=== PATIENT | male | born 1960 | race Caucasian/White ===

== ENCOUNTER → 2017-04-16 08:14 | Outpatient (CLI) | payer OTHER, SELFPAY ==
[2017-04-16 10:34] LABS: Anion Gap 9 (5-15); BUN 19 mg/dL (7-18); BUN/Creat Ratio 21.4 RATIO (10-20); Calcium,Total 8.2 mg/dL (8.5-10.1); Chloride 103 mmol/L (98-107); Cholesterol 121 mg/dL (200); Creatinine, Serum 0.89 mg/dL (0.70-1.30); EST Glomerular Filtration Rate 94 mL/min (>60); Est Glom Filt Rate - Afr Amer 114 mL/min (>60); Glucose 87 mg/dL (74-106); High Density Lipoprotein 29 mg/dL; Potassium 3.7 mmol/L (3.5-5.1); Sodium Level 140 mmol/L (136-145); Triglycerides 52 mg/dL; Very Low Density Lipoprotein 10 mg/dL (5-40)
== END ==
PROVIDERS: Family Provider Family Medicine; PCP Family Medicine; Visit Provider Family Medicine
DX: E78.00 Pure hypercholesterolemia, unspecified (principal); R00.2 Palpitations
CPT/HCPCS: 36415; 80048; 80061

== ENCOUNTER → 2018-05-17 10:33 | Outpatient (CLI) | payer OTHER, SELFPAY ==
[2015-04-28 08:06] VITALS: BMI 32.1
[2018-05-17 13:19] LABS: Alanine Aminotransfer ALT/SGPT 25 U/L (16-61); Anion Gap 9 (5-15); BUN 12 mg/dL (7-18); BUN/Creat Ratio 13.3 RATIO (10-20); Calcium,Total 8.4 mg/dL (8.5-10.1); Chloride 106 mmol/L (98-107); Cholesterol 179 mg/dL (200); EST Glomerular Filtration Rate 93 mL/min (>60); Est Glom Filt Rate - Afr Amer 112 mL/min (>60); Glucose 91 mg/dL (74-106); High Density Lipoprotein 34 mg/dL; PSA,Total - Annual Screen 0.51 ng/mL (0.00-4.00); Potassium 4.1 mmol/L (3.5-5.1); Sodium Level 142 mmol/L (136-145); Triglycerides 88 mg/dL; Very Low Density Lipoprotein 18 mg/dL (5-40)
== END ==
PROVIDERS: Family Provider Family Medicine; PCP Family Medicine; Referring Provider Family Medicine; Visit Provider Family Medicine
DX: Z12.5 Encounter for screening for malignant neoplasm of prostate (principal); L40.9 Psoriasis, unspecified; E78.00 Pure hypercholesterolemia, unspecified
CPT/HCPCS: 36415; 80048; 80061; 84153; 84460; G0103

== ENCOUNTER → 2019-05-20 09:22 | Outpatient (CLI) | payer OTHER, SELFPAY ==
[2015-04-28 08:06] VITALS: BMI 32.1
[2019-05-20 12:24] LABS: ALB/GLOB Ratio 1.1 RATIO (0.9-2.4); AST(SGOT) 25 U/L (15-37); Alanine Aminotransfer ALT/SGPT 32 U/L (16-61); Albumin, Serum 3.8 g/dL (3.2-5.0); Alkaline Phosphatase 74 U/L (45-117); Anion Gap 8 (5-15); BUN 16 mg/dL (7-18); Calcium,Total 8.5 mg/dL (8.5-10.1); Chloride 104 mmol/L (98-107); Cholesterol 188 mg/dL (200); EST Glomerular Filtration Rate 82 mL/min (>60); Est Glom Filt Rate - Afr Amer 99 mL/min (>60); Globulin 3.5 g/dL (2.2-4.2); Glucose 94 mg/dL (74-106); High Density Lipoprotein 34 mg/dL; PSA,Total - Annual Screen 0.39 ng/mL (0.00-4.00); Potassium 4.1 mmol/L (3.5-5.1); Protein, Total 7.3 g/dL (6.4-8.2); Sodium Level 140 mmol/L (136-145); Triglycerides 76 mg/dL; Very Low Density Lipoprotein 15 mg/dL (5-40)
== END ==
PROVIDERS: PCP Family Medicine; Referring Provider Family Medicine; Visit Provider Family Medicine
DX: E78.00 Pure hypercholesterolemia, unspecified (principal); Z12.5 Encounter for screening for malignant neoplasm of prostate
CPT/HCPCS: 36415; 80053; 80061; 84153; G0103

== ENCOUNTER 2019-07-26 17:49 | Emergency (ER) | payer OTHER, SELFPAY ==
[2019-07-26 17:50] VITALS: BP 169/96; PULSE 80; RESP 16; TEMP 36.2; O2SAT 97; BMI 29.9
--- NOTE | 2019-07-26 18:11 | ED.VIS.GEN ---
History of Present Illness Chief Complaint: Laceration Informant: Patient Onset: Today Narrative: Patient presents with laceration to the right balderas. He was building a deck when a board came back up and hit him in the right leg. He believes tetanus is up-to-date. He was able to ambulate without difficulty. - Past Medical History (1) High cholesterol Status: Chronic Past Medical History - Allergies and Home Meds Allergies/Adverse Reactions: Allergies No Known Allergies Allergy (Verified 07/26/19 17:51) Primary Care Physician: Jonathan Barroso MD [Primary Care Provider] - Prior records reviewed: Yes Smoking Status: Never smoker Review of Systems General: Denies: Chills, Fever Eyes: Denies: Visual changes - bilaterally ENT: Denies: Bilateral ear pain Cardiovascular: Denies: Chest pain Respiratory: Denies: Dyspnea, Cough Gastrointestinal: Denies: Abdominal pain Musculoskeletal: Reports: Extremity Pain Skin: Reports: Wounds Neurological: Denies: Headache Hematologic: Denies: Easy bruising, Easy bleeding Allergy: Denies: Uticaria Physical Exam Vital Signs/Narrative: Vital Signs Temp Pulse Resp BP Pulse Ox 07/26/19 17:50 97.2 F L 80 16 169/96 H 97 Inital Vital Signs reviewed: Yes General: Well nourished, Well developed ENT: Moist mucous membranes Neck: Supple Cardiovascular: Regular rate, Regular rhythm Respiratory: No distress Skin: - - V-shaped skin avulsion to the right lower balderas measuring 6 and 9 cm on each arm of the V. Bleeding is well controlled. Strong distal pulses noted. Neurological: Alert, Oriented x3, Normal Strength, Normal Sensation Psychological: Normal affect Diagnostic/Tx/Re-eval - Medical Decision Making Wound is anesthetized with 8 cc of 1% lidocaine. Wound is irrigated. Total of 21 sutures are placed using a combination of 4-0 and 5-0 nylon. Dressing is placed and wound care is discussed. Patient is advised to have sutures removed in 10 days. Procedures - Lacerations No standard instances Length: 5.91 in Depth: Sub Q Shape: Flap Laceration repair: Lidocaine, Local Number of Sutures/[place]: 21 Suture Information: - - 4-0 and 5-0 nylon, simple interrupted sutures ED Disposition - Plan for ED Patient: Disposition: Home or Assisted Living Diagnosis: Leg laceration Instructions: ED Laceration Ext Sutr Stap Tape Referrals: Jonathan Barroso MD [Primary Care Provider] - 10 Day for suture removal
[2019-07-26 18:56] VITALS: BP 145/71; PULSE 78; RESP 17; O2SAT 98
== END 2019-07-26 18:56 | disposition home or self-care (01) ==
LOC: ED 18:53
PROVIDERS: Emergency Provider Emergency Medicine; PCP Family Medicine
DX: S81.811A Laceration without foreign body, right lower leg, initial encounter (principal); W22.8XXA Striking against or struck by other objects, initial encounter; Y93.H3 Activity, building and construction; Y92.9 Unspecified place or not applicable; E78.00 Pure hypercholesterolemia, unspecified
CPT/HCPCS: 12005; 99284

== ENCOUNTER 2019-08-21 11:48 | Outpatient (RCR) | payer OTHER, SELFPAY ==
[2019-08-21 11:55] VITALS: BP 159/92; PULSE 61; RESP 16; TEMP 36.8
--- NOTE | 2019-08-21 19:49 | HP.PCM_ITS ---
(1) Wound of right lower extremity Status: Chronic Current Visit: Yes Code(s): S81.801A - Unspecified open wound, right lower leg, initial encounter Comment: Traumatic. Penetrating with fat layer exposed. History of Present Illness Date of Service: 08/21/19 Chief Complaint: Non Healing right leg wound. History of Wound: Mr. Miranda is a 59-year-old who presents to the wound center due to nonhealing right leg wound. Had a piece of board fall on his right balderas with subsequent injury. Was seen at the emergency room and had stitches applied however wound reopened after after stitches were taken off by his primary care physician. Has been on antibiotics and took his last dose yesterday. Denies any other feeling of unwell. No chills, fever, nausea, vomiting or change in bowel habit. Past Medical History Past Medical History: Chronic Problems High cholesterol (Chronic) Wound of right lower extremity (Chronic) Traumatic. Penetrating with fat layer exposed. Allergies/Adverse Reactions: Allergies No Known Allergies Allergy (Verified 08/21/19 12:05) Home Medications: Ambulatory Orders Medication Instructions Recorded Atorvastatin Calcium [Lipitor] 10 mg PO QHS 04/28/15 Betamethasone/Propylene Glyc 15 gm TP BID 04/28/15 [Diprolene AF 0.05% Cream] Cholecalciferol (VIT D3) [Vitamin 1,000 unit PO DAILY 04/28/15 D] Smoking Status: Never smoker Review of Systems Constitutional: Denies: Anorexia, Chills, Fever Eyes: Denies: Blurred vision, Pain, Redness HEENT: Denies: Difficulty Hearing, Difficulty Swallowing, Head Aches Cardiovascular: Denies: Chest Pain, Claudication, Chest Pressure Respiratory: Denies: Cough, Hemoptysis, Shortness of breath upon exertion Gastrointestinal: Denies: Abdominal Pain, Hematemesis, Vomiting Genitourinary: Denies: Hematuria Skin: Denies: Jaundice - Physical Exam Vital Signs Temp Pulse Resp BP 98.2 F 61 16 159/92 H 08/21/19 11:55 08/21/19 11:55 08/21/19 11:55 08/21/19 11:55 General: Alert, Oriented x3, Cooperative, No apparent distress HEENT: Atraumatic, Normocephalic Oral: Moist Mucosa Neck: Supple Lungs: Normal air movement Cardiovascular: Regular rate, Regular Rhythm, Normal S1, Normal S2 Abdomen: Soft, Non Tender Extremities: No cyanosis, Edema Skin: Ulcer/ Wound Wound Measurements and Assessment - Nurse 1 - General Ulcer Measurement Start: 08/21/19 11:55 Freq: Status: Active Protocol: Activity Type Activity Date Activity User E-Sign Co-Sign Detail Recorded Client Recorded Date Recorded By Document 08/21/19 11:55 [facility] [id number] 08/21/19 12:03 [facility] 08/21/19 11:55 Wound Center Nurse 1 [Ulcer Assessment] #1- R BALDERAS (TRAUMA) -Combined with other wound No -Current Size (cm) - Length 6.8 -Current Size (cm) - Width 2.7 -Current Size (cm) - Depth 0.2 -Total Square Cm 18.36 -Date of Last Picture (Recall this 08/21/19 field) -Photo Taken Yes -Epithelialization None Present -Tunneling No -Undermining/Tunneling No -Circular Undermining No -Exudate Amt Medium -Exudate Type Serosanguineous -Wound Margin Distinct, Outline Attached -Granulation Amt Small (1-33%) -Granulation Quality Red -Slough/Fibrin Yes -Necrosis Amt Large (67-100%) -Necrotic Tissue Type Adherent Slough -Texture (Daisy-wound Skin Appearance) Assessed, Scarring -Moisture (Daisy-wound Skin Appearance Assessed ) -Color (Daisy-wound Skin Appearance) Assessed, Erythema -Temperature (Daisy-wound Skin No Abnormality Appearance) (Pt Warm) -Tenderness on Palpation (Daisy-wound No Skin Appearance) -Ulcer Cleansing Rinsed/ Irrigated with Saline -Foul Odor after Cleansing No -Anesthetic Used 4% Lidocaine Solution - Nurse 2 - General Ulcer CM Notes Start: 08/21/19 11:55 Freq: Status: Active Protocol: Activity Type Activity Date Activity User E-Sign Co-Sign Detail Recorded Client Recorded Date Recorded By Document 08/21/19 12:26 DV [id number] 08/21/19 12:28 DV 08/21/19 12:26 Wound Center Nurse 2 [Procedure/Treatment] -Time 12:27 -Correct Patient Yes -Correct Side, Site, Position Yes -Correct Procedure Yes -Procedure Performed Yes -Type of Procedure Debridement -Clinical Debridement Subcutaneous -Post Debridement Size (cm) - Length 7.5 -Post Debridement Size (cm) - Width 3.0 -Post Debridement Size (cm) - Depth 0.3 -Total Square Cm 22.50 -Wound/Ulcer Outcome Not Healed -Ulcer Cleansing Rinsed/ Irrigated with Saline -Foul Odor after Cleansing No -Bioengineered Tissue No -Bleeding Controlled with Pressure -Offloading No -Treatment Response Procedure Tolerated Well [See Physician Procedure note for Specifics] Pain Scale: 0-10 Numeric [Pain] -Is Patient Pain Free? Yes Musculoskeletal: No Muscle Wasting Neurological: Cranial nerves II-XII grossly intact Psych/Mental Status: Normal Affect Debridement Note Post-Debridement Measurements/Treatment WC - Nurse 2 - General Ulcer CM Notes Start: 08/21/19 11:55 Freq: Status: Active Protocol: Activity Type Activity Date Activity User E-Sign Co-Sign Detail Recorded Client Recorded Date Recorded By Document 08/21/19 12:26 DV [id number] 08/21/19 12:28 DV 08/21/19 12:26 Wound Center Nurse 2 #1- R BALDERAS (TRAUMA) -Time 12:27 -Correct Patient Yes -Correct Side, Site, Position Yes -Correct Procedure Yes -Procedure Performed Yes -Type of Procedure Debridement -Clinical Debridement Subcutaneous -Post Debridement Size (cm) - Length 7.5 -Post Debridement Size (cm) - Width 3.0 -Post Debridement Size (cm) - Depth 0.3 -Total Square Cm 22.50 -Wound/Ulcer Outcome Not Healed -Ulcer Cleansing Rinsed/ Irrigated with Saline -Foul Odor after Cleansing No -Bioengineered Tissue No -Bleeding Controlled with Pressure -Offloading No -Treatment Response Procedure Tolerated Well Pain Scale: 0-10 Numeric Is Patient Pain Free? Yes Wound debrided: Right lower extremity Type of Debridement: Excisional debridement Anesthesia Used: 4% Lidocaine Solution Depth: Down to and including healthy tissue, in the subcutaneous layer Percentage of wound debrided: 100 Instrument Used: 5mm curette Tissue Removed: Slough and devitalized tissue Severity: Fat Layer Exposed Amount of bleeding with debridement: Mild Bleeding Controlled with: Pressure Patient tolerated procedure well Assessment/Plan Active Problems Wound of right lower extremity (Chronic) Traumatic. Penetrating with fat layer exposed. Assessment: Nonhealing right lower extremity wound status post trauma. Plan: Debridement done as documented above, procedure was well-tolerated. Hold of cultures, review at next visit. Fibracol daily with Adaptic over top. Double layer Tubigrip for edema management. Increase protein intake, leg elevation and exercise as tolerated recommended. His questions were answered and he was advised to call with any further questions or concerns. Follow-up in a week. This note was generated with [employer] dictation software. It may contain incorrect words, spelling, and punctuation that were not noted in checking the note before signing. Multi Select Codes - Visit Charges Office Visit/Consults: 92605 OV L3 New - Integumentary Integumentary CPT Codes: 97246 Evelyn subq tissue 20 sq cm/<
== END 2019-08-26 23:59 ==
LOC: WC 11:48
PROVIDERS: PCP Family Medicine; Visit Provider Internal Medicine
DX: S81.801A Unspecified open wound, right lower leg, initial encounter (principal); E78.00 Pure hypercholesterolemia, unspecified; W20.8XXA Other cause of strike by thrown, projected or falling object, initial encounter; Y93.9 Activity, unspecified; Y92.89 Other specified places as the place of occurrence of the external cause; Y99.9 Unspecified external cause status
CPT/HCPCS: 11042; 11045; 99213; G0463

== ENCOUNTER 2019-09-25 08:00 | Outpatient (RCR) | payer OTHER, SELFPAY ==
[2019-08-27 00:39] VITALS: BP 159/92; PULSE 61; RESP 16; TEMP 36.8
[2019-08-28 08:22] VITALS: BP 138/81; PULSE 60; RESP 16; TEMP 36.1
--- NOTE | 2019-08-28 10:21 | PN.PCM_ITS ---
(1) Wound of right lower extremity Status: Chronic Current Visit: Yes Code(s): S81.801A - Unspecified open wound, right lower leg, initial encounter Comment: Traumatic. Penetrating with fat layer exposed. Type of Wound Date of Service: 08/28/19 Chief Complaint: Non Healing right leg wound. History of Wound: Mr. Miranda is a 59-year-old who presents to the wound center due to nonhealing right leg wound. Had a piece of board fall on his right balderas with subsequent injury. Was seen at the emergency room and had stitches applied however wound reopened after after stitches were taken off by his primary care physician. Has been on antibiotics and took his last dose yesterday. Denies any other feeling of unwell. No chills, fever, nausea, vomiting or change in bowel habit. Progress of Wound: Improving, no new concerns at this time. - Physical Exam Vital Signs Temp Pulse Resp BP 97 F L 60 16 138/81 H 08/28/19 08:22 08/28/19 08:22 08/28/19 08:22 08/28/19 08:22 General: Alert, Oriented x3, Cooperative, No apparent distress HEENT: Atraumatic, Normocephalic Oral: Moist Mucosa Neck: Supple Lungs: Normal air movement Extremities: No cyanosis Skin: Ulcer/ Wound Wound Measurements and Assessment WC - Nurse 1 - General Ulcer Measurement Start: 08/28/19 08:22 Freq: Status: Active Protocol: Activity Type Activity Date Activity User E-Sign Co-Sign Detail Recorded Client Recorded Date Recorded By Document 08/28/19 08:22 [facility] [id number] 08/28/19 08:29 [facility] 08/28/19 08:22 Wound Center Nurse 1 [Ulcer Assessment] #1- R BALDERAS (TRAUMA) -Combined with other wound No -Current Size (cm) - Length 7.1 -Current Size (cm) - Width 3 -Current Size (cm) - Depth 0.3 -Total Square Cm 21.3 -Photo Taken No -Epithelialization None Present -Tunneling No -Undermining/Tunneling No -Circular Undermining No -Exudate Amt Small -Exudate Type Serosanguineous -Wound Margin Distinct, Outline Attached -Granulation Amt Medium (34-66%) -Granulation Quality Red -Slough/Fibrin Yes -Necrosis Amt Medium (34-66%) -Necrotic Tissue Type Adherent Slough -Texture (Daisy-wound Skin Appearance) Assessed, Scarring -Moisture (Daisy-wound Skin Appearance Assessed ) -Color (Daisy-wound Skin Appearance) Assessed -Temperature (Daisy-wound Skin No Abnormality Appearance) (Pt Warm) -Tenderness on Palpation (Daisy-wound No Skin Appearance) -Ulcer Cleansing Rinsed/ Irrigated with Saline -Foul Odor after Cleansing No -Anesthetic Used 5% Lidocaine Gel [Edema Assessment] -Lower Limb Edema Present Yes -Right Calf (cm) 38.5 -Right Ankle (cm) 22 WC - Nurse 2 - General Ulcer CM Notes Start: 08/28/19 08:22 Freq: Status: Active Protocol: Activity Type Activity Date Activity User E-Sign Co-Sign Detail Recorded Client Recorded Date Recorded By Document 08/28/19 09:02 MW [id number] 08/28/19 09:10 MW 08/28/19 09:02 Wound Center Nurse 2 [Procedure/Treatment] #1- R MARCY (TRAUMA) -Time 09:06 -Correct Patient Yes -Correct Side, Site, Position Yes -Correct Procedure Yes -Procedure Performed Yes -Type of Procedure Debridement -Clinical Debridement Subcutaneous -Post Debridement Size (cm) - Length 6.0 -Post Debridement Size (cm) - Width 2.6 -Post Debridement Size (cm) - Depth 0.2 -Total Square Cm 15.60 -Wound/Ulcer Outcome Not Healed -Ulcer Cleansing Rinsed/ Irrigated with Saline -Foul Odor after Cleansing No -Bioengineered Tissue No -Bleeding Controlled with Pressure -Offloading No -Treatment Response Procedure Tolerated Well [See Physician Procedure note for Specifics] Pain Scale: 0-10 Numeric [Pain] -Is Patient Pain Free? Yes Musculoskeletal: No Muscle Wasting Neurological: Cranial nerves II-XII grossly intact Psych/Mental Status: Normal Affect Debridement Note Post-Debridement Measurements/Treatment - Nurse 2 - General Ulcer CM Notes Start: 08/28/19 08:22 Freq: Status: Active Protocol: Activity Type Activity Date Activity User E-Sign Co-Sign Detail Recorded Client Recorded Date Recorded By Document 08/28/19 09:02 MW [id number] 08/28/19 09:10 MW 08/28/19 09:02 Wound Center Nurse 2 #1- R MARCY (TRAUMA) -Time 09:06 -Correct Patient Yes -Correct Side, Site, Position Yes -Correct Procedure Yes -Procedure Performed Yes -Type of Procedure Debridement -Clinical Debridement Subcutaneous -Post Debridement Size (cm) - Length 6.0 -Post Debridement Size (cm) - Width 2.6 -Post Debridement Size (cm) - Depth 0.2 -Total Square Cm 15.60 -Wound/Ulcer Outcome Not Healed -Ulcer Cleansing Rinsed/ Irrigated with Saline -Foul Odor after Cleansing No -Bioengineered Tissue No -Bleeding Controlled with Pressure -Offloading No -Treatment Response Procedure Tolerated Well Pain Scale: 0-10 Numeric Is Patient Pain Free? Yes Wound debrided: Right lower extremity Type of Debridement: Excisional debridement Anesthesia Used: 4% Lidocaine Solution Depth: Down to and including healthy tissue, in the subcutaneous layer Percentage of wound debrided: 100 Instrument Used: 5mm curette Tissue Removed: Slough and devitalized tissue Severity: Fat Layer Exposed Amount of bleeding with debridement: Mild Bleeding Controlled with: Pressure Patient tolerated procedure well Assessment/Plan Active Problems Wound of right lower extremity (Chronic) Traumatic. Penetrating with fat layer exposed. Assessment: Nonhealing right lower extremity wound status post trauma. Plan: Debridement done as documented above, procedure was well-tolerated. Cultures taken. Continue Fibracol daily with Adaptic over top. Double layer Tubigrip for edema management. Increase protein intake, leg elevation and exercise as tolerated recommended. His questions were answered and he was advised to call with any further questions or concerns. Follow-up in 2 weeks per patient preference. Will come in in 1 week for a nurse visit. This note was generated with [employer] dictation software. It may contain incorrect words, spelling, and punctuation that were not noted in checking the note before signing. 111xxx-113xx: [id number] Evelyn subq tissue 20 sq cm/<
[2019-09-02 13:20] VITALS: BP 146/73; PULSE 70; RESP 16; TEMP 36.9
[2019-09-11 08:09] VITALS: BP 132/78; PULSE 65; RESP 18; TEMP 36.5
--- NOTE | 2019-09-11 08:33 | PN.PCM_ITS ---
(1) Wound of right lower extremity Status: Chronic Current Visit: Yes Code(s): S81.801A - Unspecified open wound, right lower leg, initial encounter Comment: Traumatic. Penetrating with fat layer exposed. Type of Wound Date of Service: 09/11/19 Chief Complaint: Non Healing right leg wound. History of Wound: Mr. Miranda is a 59-year-old who presents to the wound center due to nonhealing right leg wound. Had a piece of board fall on his right balderas with subsequent injury. Was seen at the emergency room and had stitches applied however wound reopened after after stitches were taken off by his primary care physician. Has been on antibiotics and took his last dose yesterday. Denies any other feeling of unwell. No chills, fever, nausea, vomiting or change in bowel habit. Progress of Wound: Improving, no new concerns at this time. - Physical Exam Vital Signs Temp Pulse Resp BP 97.7 F L 65 18 132/78 H 09/11/19 08:09 09/11/19 08:09 09/11/19 08:09 09/11/19 08:09 General: Alert, Oriented x3, Cooperative, No apparent distress HEENT: Atraumatic, Normocephalic Oral: Moist Mucosa Neck: Supple Lungs: Normal air movement Extremities: No cyanosis Skin: Ulcer/ Wound Wound Measurements and Assessment WC - Nurse 1 - General Ulcer Measurement Start: 08/28/19 08:22 Freq: Status: Active Protocol: Activity Type Activity Date Activity User E-Sign Co-Sign Detail Recorded Client Recorded Date Recorded By Document 09/11/19 08:09 [id number] 09/11/19 08:11 RB 09/11/19 08:09 Wound Center Nurse 1 [Ulcer Assessment] #1- R BALDERAS (TRAUMA) -Combined with other wound No -Current Size (cm) - Length 4 -Current Size (cm) - Width 2.3 -Current Size (cm) - Depth 0.1 -Total Square Cm 9.2 -Tunneling No -Undermining/Tunneling No -Circular Undermining No -Exudate Amt Small -Exudate Type Serosanguineous -Wound Margin Flat & Intact -Granulation Amt Large (67-100%) -Granulation Quality [place] -Slough/Fibrin Yes -Necrosis Amt Small (1-33%) -Necrotic Tissue Type Adherent Slough -Structure Exposed N/A -Texture (Daisy-wound Skin Appearance) Assessed, Scarring -Moisture (Daisy-wound Skin Appearance Assessed ) -Color (Daisy-wound Skin Appearance) Assessed -Temperature (Daisy-wound Skin No Abnormality Appearance) (Pt Warm) -Tenderness on Palpation (Daisy-wound No Skin Appearance) -Ulcer Cleansing Wound Cleanser -Foul Odor after Cleansing No -Anesthetic Used 4% Lidocaine Solution [Edema Assessment] -Lower Limb Edema Present Yes -Right Calf (cm) 38.5 -Right Ankle (cm) 23 WC - Nurse 2 - General Ulcer CM Notes Start: 08/28/19 08:22 Freq: Status: Active Protocol: Activity Type Activity Date Activity User E-Sign Co-Sign Detail Recorded Client Recorded Date Recorded By Document 09/11/19 08:27 MW [id number] 09/11/19 08:28 MW 09/11/19 08:27 Wound Center Nurse 2 [Procedure/Treatment] #1- R BALDERAS (TRAUMA) -Time 08:28 -Correct Patient Yes -Correct Side, Site, Position Yes -Correct Procedure Yes -Procedure Performed Yes -Type of Procedure Debridement -Clinical Debridement Subcutaneous -Post Debridement Size (cm) - Length 3.5 -Post Debridement Size (cm) - Width 2.0 -Post Debridement Size (cm) - Depth 0.1 -Total Square Cm 7.00 -Wound/Ulcer Outcome Not Healed -Ulcer Cleansing Rinsed/ Irrigated with Saline -Foul Odor after Cleansing No -Bioengineered Tissue No -Bleeding Controlled with Pressure -Offloading No -Treatment Response Procedure Tolerated Well [See Physician Procedure note for Specifics] Pain Scale: 0-10 Numeric [Pain] -Is Patient Pain Free? Yes Musculoskeletal: No Muscle Wasting Neurological: Cranial nerves II-XII grossly intact Psych/Mental Status: Normal Affect Debridement Note Post-Debridement Measurements/Treatment WC - Nurse 2 - General Ulcer CM Notes Start: 08/28/19 08:22 Freq: Status: Active Protocol: Activity Type Activity Date Activity User E-Sign Co-Sign Detail Recorded Client Recorded Date Recorded By Document 08/28/19 09:02 MW [id number] 08/28/19 09:10 MW Document 09/11/19 08:27 MW [id number] 09/11/19 08:28 MW 08/28/19 09/11/19 09:02 08:27 Wound Center Nurse 2 #1- R MARCY (TRAUMA) -Time 09:06 08:28 -Correct Patient Yes Yes -Correct Side, Site, Position Yes Yes -Correct Procedure Yes Yes -Procedure Performed Yes Yes -Type of Procedure Debridement Debridement -Clinical Debridement Subcutaneous Subcutaneous -Post Debridement Size (cm) - Length 6.0 3.5 -Post Debridement Size (cm) - Width 2.6 2.0 -Post Debridement Size (cm) - Depth 0.2 0.1 -Total Square Cm 15.60 7.00 -Wound/Ulcer Outcome Not Healed Not Healed -Ulcer Cleansing Rinsed/ Rinsed/ Irrigated with Irrigated with Saline Saline -Foul Odor after Cleansing No No -Bioengineered Tissue No No -Bleeding Controlled with Pressure Pressure -Offloading No No -Treatment Response Procedure Procedure Tolerated Well Tolerated Well Pain Scale: 0-10 Numeric Is Patient Pain Free? Yes Yes Wound debrided: Right lower extremity Type of Debridement: Excisional debridement Anesthesia Used: 4% Lidocaine Solution Depth: Down to and including healthy tissue, in the subcutaneous layer Percentage of wound debrided: 100 Instrument Used: 3mm curette Tissue Removed: Slough and devitalized tissue Severity: Fat Layer Exposed Amount of bleeding with debridement: Mild Bleeding Controlled with: Pressure Patient tolerated procedure well Assessment/Plan Active Problems Wound of right lower extremity (Chronic) Traumatic. Penetrating with fat layer exposed. Assessment: Nonhealing right lower extremity wound status post trauma. Plan: Debridement done as documented above, procedure was well-tolerated. Improving. Started antibiotics on Sunday per culture and sensitivity. Continue Fibracol daily with Adaptic over top. Double layer Tubigrip for edema manageme nt. Increase protein intake, leg elevation and exercise as tolerated recommended. His questions were answered and he was advised to call with any further questions or concerns. Follow-up in 1 week. This note was generated with [email or web address] dictation software. It may contain incorrect words, spelling, and punctuation that were not noted in checking the note before signing. 111xxx-[id number]: [id number] Evelyn subq tissue 20 sq cm/<
[2019-09-18 09:22] VITALS: BP 142/77; PULSE 71; RESP 20; TEMP 36.4
--- NOTE | 2019-09-18 09:57 | PN.PCM_ITS ---
(1) Wound of right lower extremity Status: Chronic Current Visit: Yes Code(s): S81.801A - Unspecified open wound, right lower leg, initial encounter Comment: Traumatic. Penetrating with fat layer exposed. Type of Wound Date of Service: 09/18/19 Chief Complaint: Non Healing right leg wound. History of Wound: Mr. Miranda is a 59-year-old who presents to the wound center due to nonhealing right leg wound. Had a piece of board fall on his right balderas with subsequent injury. Was seen at the emergency room and had stitches applied however wound reopened after after stitches were taken off by his primary care physician. Has been on antibiotics and took his last dose yesterday. Denies any other feeling of unwell. No chills, fever, nausea, vomiting or change in bowel habit. Progress of Wound: Improving, no new concerns at this time. - Physical Exam Vital Signs Temp Pulse Resp BP 97.5 F L 71 20 H 142/77 H 09/18/19 09:22 09/18/19 09:22 09/18/19 09:22 09/18/19 09:22 General: Alert, Oriented x3, Cooperative, No apparent distress HEENT: Atraumatic, Normocephalic Oral: Moist Mucosa Neck: Supple Lungs: Normal air movement Extremities: No cyanosis Skin: Ulcer/ Wound Wound Measurements and Assessment WC - Nurse 1 - General Ulcer Measurement Start: 08/28/19 08:22 Freq: Status: Active Protocol: Activity Type Activity Date Activity User E-Sign Co-Sign Detail Recorded Client Recorded Date Recorded By Document 09/18/19 09:22 [id number] 09/18/19 09:28 DL 09/18/19 09:22 Wound Center Nurse 1 [Ulcer Assessment] #1- R BALDERAS (TRAUMA) -Current Size (cm) - Length 1.8 -Current Size (cm) - Width 2.1 -Current Size (cm) - Depth 0.1 -Total Square Cm 3.78 -Photo Taken No -Exudate Amt None Present -Wound Margin Distinct, Outline Attached -Granulation Amt Large (67-100%) -Granulation Quality [place] -Necrosis Amt None Present (0 %) -Structure Exposed N/A -Texture (Daisy-wound Skin Appearance) Scarring -Moisture (Daisy-wound Skin Appearance No Abnormality ) -Color (Daisy-wound Skin Appearance) No Abnormality -Temperature (Daisy-wound Skin No Abnormality Appearance) (Pt Warm) -Tenderness on Palpation (Daisy-wound No Skin Appearance) -Ulcer Cleansing Rinsed/ Irrigated with Saline -Foul Odor after Cleansing No -Anesthetic Used 4% Lidocaine Solution [Edema Assessment] -Right Calf (cm) 37.5 -Right Ankle (cm) 21.2 WC - Nurse 2 - General Ulcer CM Notes Start: 08/28/19 08:22 Freq: Status: Active Protocol: Activity Type Activity Date Activity User E-Sign Co-Sign Detail Recorded Client Recorded Date Recorded By Document 09/18/19 09:51 PL [id number] 09/18/19 09:52 PL 09/18/19 09:51 Wound Center Nurse 2 [Procedure/Treatment] #1- R BALDERAS (TRAUMA) -Time 09:40 -Correct Patient Yes -Correct Side, Site, Position Yes -Correct Procedure Yes -Procedure Performed Yes -Type of Procedure Debridement -Clinical Debridement Subcutaneous -Post Debridement Size (cm) - Length 1.5 -Post Debridement Size (cm) - Width 1.0 -Post Debridement Size (cm) - Depth 0.1 -Total Square (cm) 1.50 -Wound/Ulcer Outcome Not Healed -Ulcer Cleansing Rinsed/ Irrigated with Saline -Foul Odor after Cleansing No -Bleeding Controlled with Pressure -Treatment Response Procedure Tolerated Well [See Physician Procedure note for Specifics] Pain Scale: 0-10 Numeric [Pain] -Is Patient Pain Free? Yes Musculoskeletal: No Muscle Wasting Neurological: Cranial nerves II-XII grossly intact Psych/Mental Status: Normal Affect Debridement Note Post-Debridement Measurements/Treatment WC - Nurse 2 - General Ulcer CM Notes Start: 08/28/19 08:22 Freq: Status: Active Protocol: Activity Type Activity Date Activity User E-Sign Co-Sign Detail Recorded Client Recorded Date Recorded By Document 08/28/19 09:02 MW [id number] 08/28/19 09:10 MW Document 09/11/19 08:27 MW [id number] 09/11/19 08:28 MW Document 09/18/19 09:51 PL [id number] 09/18/19 09:52 PL 08/28/19 09/11/19 09/18/19 09:02 08:27 09:51 Wound Center Nurse 2 #1- R BALDERAS (TRAUMA) -Time 09:06 08:28 09:40 -Correct Patient Yes Yes Yes -Correct Side, Site, Position Yes Yes Yes -Correct Procedure Yes Yes Yes -Procedure Performed Yes Yes Yes -Type of Procedure Debridement Debridement Debridement -Clinical Debridement Subcutaneous Subcutaneous Subcutaneous -Post Debridement Size (cm) - Length 6.0 3.5 1.5 -Post Debridement Size (cm) - Width 2.6 2.0 1.0 -Post Debridement Size (cm) - Depth 0.2 0.1 0.1 -Total Square (cm) 15.60 7.00 1.50 -Wound/Ulcer Outcome Not Healed Not Healed Not Healed -Ulcer Cleansing Rinsed/ Rinsed/ Rinsed/ Irrigated with Irrigated with Irrigated with Saline Saline Saline -Foul Odor after Cleansing No No No -Bioengineered Tissue No No -Bleeding Controlled with Pressure Pressure Pressure -Offloading No No -Treatment Response Procedure Procedure Procedure Tolerated Well Tolerated Well Tolerated Well Pain Scale: 0-10 Numeric Is Patient Pain Free? Yes Yes Yes Wound debrided: Right leg Type of Debridement: Excisional debridement Anesthesia Used: 4% Lidocaine Solution Depth: Down to and including healthy tissue, in the subcutaneous layer Percentage of wound debrided: 100 Instrument Used: 3mm curette Tissue Removed: Slough and devitalized tissue Severity: Fat Layer Exposed Amount of bleeding with debridement: Mild Bleeding Controlled with: Pressure Patient tolerated procedure well Assessment/Plan Active Problems Wound of right lower extremity (Chronic) Traumatic. Penetrating with fat layer exposed. Assessment: Nonhealing right lower extremity wound status post trauma. Plan: Debridement done as documented above, procedure was well-tolerated. Improving. Continue Fibracol daily with Adaptic over top. Double layer Tubigrip for edema management. Increase protein intake, leg elevation and exercise as tolerated recommended. His questions were answered and he was advised to call with any further questions or concerns. Follow-up in 1 week. This note was generated with [employer] dictation software. It may contain incorrect words, spelling, and punctuation that were not noted in checking the note before signing. [id number]: [id number] Evelyn subq tissue 20 sq cm/<
[2019-09-25 08:06] VITALS: BP 135/77; PULSE 68; RESP 18; TEMP 36.1
--- NOTE | 2019-09-25 08:46 | PCM.WC.PN ---
(1) Wound of right lower extremity Status: Chronic Current Visit: Yes Code(s): S81.801A - Unspecified open wound, right lower leg, initial encounter Comment: Traumatic. Penetrating with fat layer exposed. Type of Wound Date of Service: 09/25/19 Chief Complaint: Non Healing right leg wound. History of Wound: Mr. Miranda is a 59-year-old who presents to the wound center due to nonhealing right leg wound. Had a piece of board fall on his right balderas with subsequent injury. Was seen at the emergency room and had stitches applied however wound reopened after after stitches were taken off by his primary care physician. Has been on antibiotics and took his last dose yesterday. Denies any other feeling of unwell. No chills, fever, nausea, vomiting or change in bowel habit. Progress of Wound: Healed. No new concerns. - Physical Exam Vital Signs Temp Pulse Resp BP 97 F L 68 18 135/77 H 09/25/19 08:06 09/25/19 08:06 09/25/19 08:06 09/25/19 08:06 General: Alert, Oriented x3, Cooperative, No apparent distress HEENT: Atraumatic, Normocephalic Oral: Moist Mucosa Neck: Supple Lungs: Normal air movement Extremities: No cyanosis Wound Measurements and Assessment WC - Nurse 1 - General Ulcer Measurement Start: 08/28/19 08:22 Freq: Status: Active Protocol: Activity Type Activity Date Activity User E-Sign Co-Sign Detail Recorded Client Recorded Date Recorded By Document 09/25/19 08:06 NATAN [id number] 09/25/19 08:08 NATAN 09/25/19 08:06 Wound Center Nurse 1 [Ulcer Assessment] #1- R BALDERAS (TRAUMA) -Combined with other wound No -Current Size (cm) - Length 0.1 -Current Size (cm) - Width 0.1 -Current Size (cm) - Depth 0.1 -Total Square Cm 0.01 -Tunneling No -Undermining/Tunneling No -Circular Undermining No -Exudate Amt Small -Exudate Type Serosanguineous -Wound Margin Flat & Intact -Granulation Amt Large (67-100%) -Granulation Quality [place] -Slough/Fibrin Yes -Necrosis Amt Small (1-33%) -Necrotic Tissue Type Adherent Slough -Structure Exposed N/A -Texture (Daisy-wound Skin Appearance) Assessed, Scarring -Moisture (Daisy-wound Skin Appearance Assessed ) -Color (Daisy-wound Skin Appearance) Assessed -Temperature (Daisy-wound Skin No Abnormality Appearance) (Pt Warm) -Tenderness on Palpation (Daisy-wound No Skin Appearance) -Ulcer Cleansing Wound Cleanser -Foul Odor after Cleansing No -Anesthetic Used 4% Lidocaine Solution - Nurse 2 - General Ulcer CM Notes Start: 08/28/19 08:22 Freq: Status: Active Protocol: Activity Type Activity Date Activity User E-Sign Co-Sign Detail Recorded Client Recorded Date Recorded By Document 09/25/19 08:22 MW [id number] 09/25/19 08:23 MW 09/25/19 08:22 Wound Center Nurse 2 [Procedure/Treatment] -Time 08:22 -Correct Patient Yes -Correct Side, Site, Position Yes -Correct Procedure Yes -Procedure Performed No -Post Debridement Size (cm) - Length 0 -Post Debridement Size (cm) - Width 0 -Post Debridement Size (cm) - Depth 0 -Total Square (cm) 0 -Wound/Ulcer Outcome Healed- Epithelialized [See Physician Procedure note for Specifics] Pain Scale: 0-10 Numeric [Pain] -Is Patient Pain Free? Yes Musculoskeletal: No Muscle Wasting Neurological: Cranial nerves II-XII grossly intact Psych/Mental Status: Normal Affect Debridement Note Post-Debridement Measurements/Treatment - Nurse 2 - General Ulcer CM Notes Start: 08/28/19 08:22 Freq: Status: Active Protocol: Activity Type Activity Date Activity User E-Sign Co-Sign Detail Recorded Client Recorded Date Recorded By Document 08/28/19 09:02 MW [id number] 08/28/19 09:10 MW Document 09/11/19 08:27 MW [id number] 09/11/19 08:28 MW Document 09/18/19 09:51 PL [id number] 09/18/19 09:52 PL Document 09/25/19 08:22 MW [id number] 09/25/19 08:23 MW 08/28/19 09/11/19 09/18/19 09:02 08:27 09:51 Wound Center Nurse 2 #1- R BALDERAS (TRAUMA) -Time 09:06 08:28 09:40 -Correct Patient Yes Yes Yes -Correct Side, Site, Position Yes Yes Yes -Correct Procedure Yes Yes Yes -Procedure Performed Yes Yes Yes -Type of Procedure Debridement Debridement Debridement -Clinical Debridement Subcutaneous Subcutaneous Subcutaneous -Post Debridement Size (cm) - Length 6.0 3.5 1.5 -Post Debridement Size (cm) - Width 2.6 2.0 1.0 -Post Debridement Size (cm) - Depth 0.2 0.1 0.1 -Total Square (cm) 15.60 7.00 1.50 -Wound/Ulcer Outcome Not Healed Not Healed Not Healed -Ulcer Cleansing Rinsed/ Rinsed/ Rinsed/ Irrigated with Irrigated with Irrigated with Saline Saline Saline -Foul Odor after Cleansing No No No -Bioengineered Tissue No No -Bleeding Controlled with Pressure Pressure Pressure -Offloading No No -Treatment Response Procedure Procedure Procedure Tolerated Well Tolerated Well Tolerated Well Pain Scale: 0-10 Numeric Is Patient Pain Free? Yes Yes Yes 09/25/19 08:22 Wound Center Nurse 2 #1- Lyndon BALDERAS (TRAUMA) -Time 08:22 -Correct Patient Yes -Correct Side, Site, Position Yes -Correct Procedure Yes -Procedure Performed No -Type of Procedure -Clinical Debridement -Post Debridement Size (cm) - Length 0 -Post Debridement Size (cm) - Width 0 -Post Debridement Size (cm) - Depth 0 -Total Square (cm) 0 -Wound/Ulcer Outcome Healed- Epithelialized -Ulcer Cleansing -Foul Odor after Cleansing -Bioengineered Tissue -Bleeding Controlled with -Offloading -Treatment Response Pain Scale: 0-10 Numeric Is Patient Pain Free? Yes No debridement was completed today Assessment/Plan Active Problems Wound of right lower extremity (Chronic) Traumatic. Penetrating with fat layer exposed. Assessment: Healed. Plan: Healed. Minimal skin tear. Moisturize adequately daily with aquaphor. Adaptic and gauze daily for 2 weeks. Keep area protected. His questions were answered and he was advised to call with any further questions or concerns. Discharge from the wound clinic. This note was generated with [employer] software. It may contain incorrect words, spelling, and punctuation that were not noted in checking the note before signing. Office Visits / Consults: [id number] OV L3 Est
== END 2019-09-26 14:11 | disposition home or self-care (01) ==
LOC: WC 08:00
PROVIDERS: PCP Family Medicine; Visit Provider Internal Medicine
DX: S81.831A Puncture wound without foreign body, right lower leg, initial encounter (principal); W22.8XXA Striking against or struck by other objects, initial encounter
CPT/HCPCS: 11042; 87070; 87075; 87077; 87186; 87205; 99213; G0463

== ENCOUNTER → 2020-05-28 09:00 | Outpatient (CLI) | payer OTHER, SELFPAY ==
[2020-05-28 10:46] LABS: ALB/GLOB Ratio 1.2 RATIO (0.9-2.4); AST(SGOT) 18 U/L (15-37); Alanine Aminotransfer ALT/SGPT 27 U/L (16-61); Albumin, Serum 3.8 g/dL (3.2-5.0); Alkaline Phosphatase 68 U/L (45-117); Anion Gap 6 (5-15); BUN 17 mg/dL (7-18); BUN/Creat Ratio 15.3 RATIO (10-20); Calcium,Total 8.8 mg/dL (8.5-10.1); Chloride 104 mmol/L (98-107); Cholesterol 178 mg/dL (200); Creatinine, Serum 1.11 mg/dL (0.70-1.30); EST Glomerular Filtration Rate 72 mL/min (>60); Est Glom Filt Rate - Afr Amer 87 mL/min (>60); Globulin 3.2 g/dL (2.2-4.2); Glucose 93 mg/dL (74-106); High Density Lipoprotein 38 mg/dL; PSA,Total - Annual Screen 0.47 ng/mL (0.00-4.00); Sodium Level 139 mmol/L (136-145); Triglycerides 92 mg/dL; Very Low Density Lipoprotein 18 mg/dL (5-40)
== END ==
PROVIDERS: PCP Family Medicine; Referring Provider Family Medicine; Visit Provider Family Medicine
DX: Z12.5 Encounter for screening for malignant neoplasm of prostate (principal); E78.00 Pure hypercholesterolemia, unspecified
CPT/HCPCS: 36415; 80053; 80061; 84153; G0103

== ENCOUNTER 2021-02-27 12:17 | Inpatient (IN) | payer OTHER, SELFPAY ==
[2021-02-27] VITALS (10 sets, daily range): BP systolic 134–166; BP diastolic 75–98; PULSE 72–119; RESP 16–31; TEMP 36–36.7; O2SAT 83–96; BMI 29.8
--- NOTE | 2021-02-27 12:48 | EKG12_ITS ---
Test Reason : SOB Blood Pressure : / mmHG Vent. Rate : 084 BPM Atrial Rate : 084 BPM P-R Int : 202 ms QRS Dur : 100 ms QT Int : 376 ms P-R-T Axes : 004 -04 122 degrees QTc Int : 444 ms Sinus rhythm with Premature atrial complexes Left ventricular hypertrophy with repolarization abnormality Abnormal ECG NONSPECIFIC ST/T WAVE ABNORMALITY Confirmed by JOAQUIN NOWAK, CYNDI ([id number]), writer editor TERE BALDERAS ([id number]) on 03/02/2021 10:27:31 AM Referred By: DALE Confirmed By:CYNDI NUÑEZ MD
--- NOTE | 2021-02-27 13:03 | RAD_ITS ---
STUDY: X-RAY CHEST REASON FOR EXAM: Male, 60 years old. SOB TECHNIQUE: Single AP portable view of the chest. COMPARISON: 04/26/2015 FINDINGS: Alveolar opacities in both lung bases consistent with bibasilar pneumonia. There is no demonstrated pleural abnormality. Normal size heart. Normal mediastinum and gurdeep. Normal visualized pulmonary arteries. Normal visualized aortic arch and descending thoracic aorta. Normal visualized thoracic spine. Normal visualized ribs, clavicles, and shoulders. There is no demonstrated abnormality of the visualized soft tissue structures of the upper abdomen. RAD/Chest 1 View (Portable) IMPRESSION: Bibasilar pneumonia. Electronically Signed: Johny Melchor MD at 13:39 EST Tel , Service support ,
[2021-02-27 13:44] LABS: Absolute Lymphocyte Count 0.52 X10^3/uL (0.83-4.51); Absolute Neutrophil Count 9.5 X10^3/uL (2.0-7.7); Basophil# 0.02 X10^3/uL; Basophil% 0.2 % (0-1); Eosinophil# 0.01 X10^3/uL; Eosinophils% 0.1 % (0-5); Hematocrit 44.7 % (40-54); Hemoglobin 14.9 g/dL (13.0-16.5); Lymphocyte # 0.52 X10^3/ul (0.83-4.51); Mean Corp Hgb Conc 33.3 g/dL (32-36); Mean Corpuscular Hgb 29.9 pg (27.0-32.0); Mean Corpuscular Volume 89.6 fL (80-94); Mean Platelet Vol. 10.7 fl (6.2-12.0); Monocyte# 0.23 X10^3/uL; Monocyte% 2.2 % (0-10); NRBC Flagged by Analyzer 0 % (0-5); Neutrophil # 9.47 X10^3/uL (2.7-7.7); Neutrophil % 91.4 % (47-70); POSITIVE DIFFERENTIAL YES; Platelet Count 181 K/mm3 (150-450); RBC Distribution Width CV 13.8 % (11.6-14.6); RBC Distribution Width SD 45.5 fl (35.1-43.9); Red Blood Count 4.99 M/mm3 (4.6-6.2); White Blood Count 10.4 K/mm3 (4.4-11.0)
[2021-02-27 13:46] LABS: Differential Indicated SCAN CRITERIA MET
[2021-02-27 13:58] LABS: Anion Gap 8 (5-15); BUN 17 mg/dL (7-18); BUN/Creat Ratio 15.5 RATIO (10-20); Calcium,Total 8.9 mg/dL (8.5-10.1); Chloride 102 mmol/L (98-107); EST Glomerular Filtration Rate 73 mL/min (>60); Est Glom Filt Rate - Afr Amer 88 mL/min (>60); Estimated Creatinine Clearance 81.72 ml/min; Glucose 119 mg/dL (74-106); Potassium 3.9 mmol/L (3.5-5.1); Sodium Level 138 mmol/L (136-145)
[2021-02-27 14:07] LABS: Platelet Estimate ADEQUATE (ADEQ); Red Cell Morphology NORM C+C NORMAL (NORM C&C)
--- NOTE | 2021-02-27 15:05 | EDS_ITS ---
HPI History of Present Illness Chief Complaint: Shortness of Breath Informant: patient Onset/Context/Timing Onset: Days (6) Context: gradual Timing: Continuous Quality: Positive for Dyspnea on exertion Worsened by: Exertion Relieved by: Rest and Oxygen Associated Symptoms cough, fever and white sputum; Negative for rhinorrhea, ear pain, sore throat or chills Chest Pain: Positive for None Narrative Narrative: Patient presents with shortness of breath and low pulse ox that became worse over the past couple days. Patient states his symptoms started 6 days ago. Patient states he has been running a fever up to 103 at home. Patient states he is coughing up some white sputum. Patient states he feels short of breath whenever he tries to walk anywhere. Patient states his breathing improved when he was placed on oxygen. Patient states that his pulse oximeter was reading 84% on room air at home. Patient also admits to mild headache. Patient admits to some nausea and vomiting. Patient denies any diarrhea, melena, or hematochezia. [facility] Medical History Hyperlipemia Home Medications atorvastatin 10 mg PO QHS 04/28/15 [History Last Taken Unknown] cholecalciferol (vitamin D3) [Vitamin D] 1,000 unit PO DAILY 04/28/15 [History Last Taken Unknown] benzonatate 100 mg PO BID 02/27/21 [History Last Taken Unknown] dexamethasone 6 mg PO DAILY 02/27/21 [History Last Taken Unknown] Allergy/AdvReac Type Severity Reaction Status Date / Time No Known Allergies Allergy Verified 02/27/21 12:21 Surgical History no surgical history no surgical history Social History Smoking Status: Never smoker ROS ROS ED Constitutional Constitutional ED: Reports fever(s); Denies chills Eyes Eyes: Denies blurry vision or change in vision ENT ENT ED: Denies rhinorrhea or sore throat Cardiovascular Cardiovascular: Denies chest pain or palpitations Respiratory/Chest Respiratory/Chest: Reports cough and dyspnea Gastrointestinal Gastrointestinal: Reports nausea and vomiting Genitourinary Genitourinary ED: Denies dysuria or hematuria Musculoskeletal Musculoskeletal: Denies back pain or neck pain Integumentary Denies abscess or rash Neurologic Neurologic: Reports headache(s); Denies weakness Allergic/Immunologic Allergic/Immunologic ED: Denies mouth swelling or urticaria EXAM Physical Exam Const Vital Signs: 02/27/21 12:18 02/27/21 13:56 02/27/21 14:01 Temperature 96.8 F L Temperature Source Temporal Pulse Rate 80 98 72 Respiratory Rate 24 H 17 24 H Respiratory Effort Short of Breath Labored Respiratory Depth Normal Respiratory Pattern Tachypnea Blood Pressure 134/77 H 160/75 H 160/75 H Blood Pressure Mean 96 103 103 Pulse Ox 83 94 94 Oxygen Delivery Method Room Air Nasal Cannula Oxygen Flow Rate (L/min) 2 02/27/21 15:00 Temperature Temperature Source Pulse Rate Respiratory Rate Respiratory Effort Respiratory Depth Respiratory Pattern Blood Pressure 134/78 H Blood Pressure Mean 96 Pulse Ox Oxygen Delivery Method Oxygen Flow Rate (L/min) Positive well nourished and well developed General Appearance ED: well developed HEENT Reports moist mucous membranes Neck supple and no JVD Resp normal respiratory effort Auscultation: diminished lung sounds bilateral throughout Cardio regular rate, regular rhythm and no murmurs GI normal to inspection, nondistended, normoactive bowel sounds and non-tender Palpation: soft Extremity normal to inspection General Extremety ED: Negative for edema or tenderness General Extremity: Negative for edema Neuro oriented x3, CN's II-XII intact bilaterally and no sensory deficits noted Sensorium / Orientation: alert Motor Exam: strength 5/5 throughout Psych mental status grossly normal Skin no rashes or lesions noted MDM MDM MDM Narrative Medical decision making narrative: Patient was given 4 puffs of an albuterol inhaler here. Patient was given a dose of Decadron here. CBC and basic metabolic profile were within normal limits. Portable chest x-ray was obtained. There is 1 view. On my interpretation, there is bilateral lower lobe infiltrates. There is no cardiomegaly. Bony thorax is normal. Radiologist also interpreted the x-ray and agrees. EKG was obtained. On my interpretation, there is normal sinus rhythm with occasional PACs with a rate of 84. There is also a first-degree AV block with a DE interval of 202. QRS and QTc intervals were normal. [place] was normal. There are no acute ST or T wave changes. Patient was given a dose of Decadron here. Case was discussed with the hospitalist. She will admit the patient to her service. Patient understands and is agreeable with the plan. All questions were answered. Lab Data Attestation: I reviewed the patient's lab results. Labs: Laboratory Results - last 24 hr 02/27/21 02/27/21 02/27/21 13:37 13:37 14:33 WBC 10.4 RBC 4.99 Hgb 14.9 Hct 44.7 MCV 89.6 MCH 29.9 MCHC 33.3 RDW Std Deviation 45.5 H RDW Coeff of Shonda 13.8 Plt Count 181 MPV 10.7 Immature Gran % (Auto) 1.100 H Neut % (Auto) 91.4 H Lymph % (Auto) 5.0 L [place] % (Auto) 2.2 Eos % (Auto) 0.1 Baso % (Auto) 0.2 Absolute Neuts (auto) 9.5 H Absolute Lymphs (auto) 0.52 L Nucleated RBC % 0 Platelet Estimate ADEQUATE RBC Morphology NORM C+C Sodium 138 Potassium 3.9 Chloride 102 Carbon Dioxide 28.0 Anion Gap 8 BUN 17 Creatinine 1.10 Estim Creat Clear Calc 81.72 Est GFR (MDRD) Af Amer 88 Est GFR (MDRD) Non-Af 73 BUN/Creatinine Ratio 15.5 Glucose 119 H Lactic Acid 1.2 Calcium 8.9 Radiography Chest X-Ray - ED: 1 View, Read by ED Physician, Read by Radiologist, Right Infiltrate and Left Infiltrate Diagnostic Testing: Clinical Impression(s) from Imaging Studies Chest X-Ray 02/27/21 13:03 IMPRESSION: Bibasilar pneumonia. Electronically Signed: Johny Melchor MD at 13:39 EST Tel , Service support , EKG Initial EKG: Attestation: I personally reviewed and interpreted this EKG as follows: Interpretation: Sinus Rhythm (With PACs with a rate of 84) and No Acute Injury Pattern Prior EKG tracings: not available for review Treatment and Re-Evaluation Vital Sign Attestation:: Vital signs were reviewed prior to admission. They are stable. Discharge Plan Dx/Rx/DC Orders Clinical Impression: Pneumonia due to COVID-19 virus, Hypoxia Disposition Disposition: [facility]
--- NOTE | 2021-02-27 15:11 | HP.PCM.HOS_ITS ---
HPI - General General Date of Admission: 02/27/21 HPI Narrative SRAVAN GREGORIO, is a 60 M with a PMH as outlined who presents via the ED on 02/27/2021 with a complaint of shortness of breath which had been going on fr ~ 2 days. His symptoms stated ~ 6 days prior to admission. he also had a high grade fever at home, and he was saturating at 84% on room air at home. He had an associated cough productive of whitish sputum. Vitals at time of review were blood pressure 160/75 with pulse rate of 72, respiratory rate of 24 he was saturating at 94% on 2 L of oxygen by nasal cannula. CBC showed wbc of 10.4, hb of 14.9, platelets of 181 and chemistry was unremarkable. CXR showed bibasilar pneumonia. He was admitted to be managed for acute hypoxic respiratory failure due to COVID 19 pneumonia. Patient is vaccinated with the Moderna vaccine, with last vaccine dose being in June 2020. He hasnt received the booster yet. [facility] Medical History Hyperlipemia Home Medications atorvastatin 10 mg PO QHS 04/28/15 [History Last Taken Unknown] cholecalciferol (vitamin D3) [Vitamin D] 1,000 unit PO DAILY 04/28/15 [History Last Taken Unknown] benzonatate 100 mg PO BID 02/27/21 [History Last Taken Unknown] dexamethasone 6 mg PO DAILY 02/27/21 [History Last Taken Unknown] Allergy/AdvReac Type Severity Reaction Status Date / Time No Known Allergies Allergy Verified 02/27/21 12:21 Surgical History no surgical history Social History Smoking Status: Never smoker ROS Review of Systems ROS Unobtainable: Denies due to encephalopathy Constitutional Constitutional: Reports chills, fatigue, malaise and weakness; Denies anorexia Eyes Eyes: Denies change in vision ENT HEENT: Reports headache(s), nasal congestion and sore throat; Denies dysphagia, nasal discharge or sinus pressure Cardiovascular Cardiovascular: Reports lightheadedness; Denies chest pain, dyspnea on exertion, orthopnea, paroxysmal nocturnal dyspnea or rapid heart rate Respiratory/Chest Respiratory/Chest: Reports cough, dyspnea, hemoptysis, productive cough, shortness of breath at rest and shortness of breath with exertion; Denies excessive phlegm production or wheezing Gastrointestinal Gastrointestinal: Denies abdominal pain, constipation, diarrhea, nausea or vomiting Genitourinary Genitourinary: Denies burning urination or dysuria Musculoskeletal Musculoskeletal: Denies arthralgias or joint pain Neurologic Neurologic: Denies confusion, dizziness, focal weakness, headache(s) or seizures Psychiatric Psychiatric: Denies anxiety Endocrine Endocrinology: Denies change in body appearance Hematologic/Lymphatic Hematologic/Lymphatic: Denies anemia Vital Signs Vital Signs Vital Signs: 02/27/21 12:18 02/27/21 13:56 02/27/21 14:01 Temperature 96.8 F L Temperature Source Temporal Pulse Rate 80 98 72 Respiratory Rate 24 H 17 24 H Respiratory Effort Short of Breath Labored Respiratory Depth Normal Respiratory Pattern Tachypnea Blood Pressure 134/77 H 160/75 H 160/75 H Blood Pressure Mean 96 103 103 Pulse Ox 83 94 94 Oxygen Delivery Method Room Air Nasal Cannula Oxygen Flow Rate (L/min) 2 Weight Weight: 228 lb Body Mass Index (BMI) 30.0 Physical Exam Const alert, oriented x3 and no apparent distress HEENT normocephalic, head/scalp atraumatic, hearing grossly normal bilaterally and moist oral mucous membranes Eyes PERRL, EOMs intact bilaterally and conjunctivae normal Neck no lymphadenopathy and supple Resp Resp Narrative: diminished breath sounds bibasally, no wheezes, no crackles. On 2L of oxygen by nasal canula Cardio regular rate, regular rhythm, S1 normal heart sound, S2 normal heart sound and no murmurs GI normal to inspection, nondistended, normoactive bowel sounds, soft to palpation, non-tender and non-distended Extremity normal to inspection, full ROM and no clubbing, cyanosis or edema Peripheral Pulses: Yes pulses 2+ throughout Skin no rashes or lesions noted Neuro oriented x3, CN's II-XII intact bilaterally and moves all extremities Sensorium / Orientation: awake and alert Psych affect normal Results Lab / Micro Data Result Diagrams: 02/27/21 13:37 02/27/21 13:37 Labs: Laboratory Results - last 24 hr 02/27/21 13:37: WBC 10.4, RBC 4.99, Hgb 14.9, Hct 44.7, MCV 89.6, MCH 29.9, MCHC 33.3, RDW Std Deviation 45.5 H, RDW Coeff of Shonda 13.8, Plt Count 181, MPV 10.7, Immature Gran % (Auto) 1.100 H, Neut % (Auto) 91.4 H, Lymph % (Auto) 5.0 L, [place] % (Auto) 2.2, Eos % (Auto) 0.1, Baso % (Auto) 0.2, Absolute Neuts (auto) 9.5 H, Absolute Lymphs (auto) 0.52 L, Nucleated RBC % 0, Platelet Estimate ADEQUATE, RBC Morphology NORM C+C 02/27/21 13:37: Sodium 138, Potassium 3.9, Chloride 102, Carbon Dioxide 28.0, Anion Gap 8, BUN 17, Creatinine 1.10, Estim Creat Clear Calc 81.72, Est GFR (MDRD) Af Amer 88, Est GFR (MDRD) Non-Af 73, BUN/Creatinine Ratio 15.5, Glucose 119 H, Calcium 8.9 Micro: Microbiology 02/27/21 14:45 Nasal Secretion SARS-CoV-2 Antigen (Rapid) - Final SARS-CoV-2 (COVID 19) Radiology Impression Chest X-Ray 02/27/21 13:03 IMPRESSION: Bibasilar pneumonia. Electronically Signed: Johny Melchor MD at 13:39 EST Tel , Service support , Assessment & Plan Assessment/Plan (1) Hypoxia: (2) Pneumonia due to COVID-19 virus: PLAN: #Acute hypoxic respiratory failure due to COVID-19 pneumonia * Admit to [facility] * Start on Decadron and remdesivir. Titrate oxygen to maintain saturation above 90%. * Check urine for strep and Legionella, sputum culture and Gram stain as well as inflammatory markers * check D dimer * breathing treatment with bronchodilators * #Hyperlipidemia: On statin DVT prophylaxis: Lovenox CODE STATUS: Full code * Patient counseled extensively about different types of CODE STATUS including f ull code, DNR CCA and DNR CCA. Patient elects to be full code. Total gedo-nt-zmxy time 17 minutes. Charges/Coding Visit Charges Inpatient E&M: 70788 Init Hosp L3 Procedures Hospitalists Procedures: 24108 Advncd Care Plan 30 Min
[2021-02-27 15:21] LABS: Lactic Acid 1.2 mmol/L (0.4-1.9)
[2021-02-27] MEDS: dexAMETHasone 4 MG/ML Vial 6 MG IV (15:35)
[2021-02-27 18:48] LABS: Alkaline Phosphatase 70 U/L (45-117); CPK Total, Creatine Kinase 839 U/L (39-308); LDH 842 U/L (87-241)
[2021-02-27 18:56] LABS: Procalcitonin 0.36 ng/mL (0.00-0.09)
[2021-02-27 19:03] LABS: Fibrinogen > 900 mg/dl (203-444); Prothrombin Time (Protime)PT. 12.9 SECONDS (11.7-14.9)
[2021-02-27 19:13] LABS: BNP,B-Type NATRIURETIC PEPTIDE 246.6 pg/mL (0-100)
[2021-02-27] MEDS: 0.9% Saline Lock 10 ML Syringe IV (19:34)
[2021-02-27] MEDS: Enoxaparin 30 MG/0.3 ML Syringe SC (20:26)
[2021-02-27] MEDS: Benzonatate 100 MG Capsule PO (20:26)
--- NOTE | 2021-02-27 20:46 | EKG12_ITS ---
Test Reason : IREGG RATE Blood Pressure : / mmHG Vent. Rate : 080 BPM Atrial Rate : 080 BPM P-R Int : 218 ms QRS Dur : 102 ms QT Int : 368 ms P-R-T Axes : 043 -04 125 degrees QTc Int : 424 ms Sinus rhythm with 1st degree A-V block Left ventricular hypertrophy with repolarization abnormality Abnormal ECG When compared with ECG of 27-FEB-2021 14:11, MANUAL COMPARISON REQUIRED, DATA IS UNCONFIRMED Confirmed by OZZIE NOWAK, ENMA ([id number]), loan expeditor JOSE CHA ([id number]) on 03/11/2021 8:03:30 AM Referred By: DR HARVEY Confirmed By:MAGALIS HORNE MD
[2021-02-28] VITALS (12 sets, daily range): BP systolic 112–140; BP diastolic 62–94; PULSE 63–82; RESP 18–30; TEMP 36.2–36.8; O2SAT 84–95
[2021-02-28 06:55] LABS: Absolute Lymphocyte Count 0.65 X10^3/uL (0.83-4.51); Absolute Neutrophil Count 5.3 X10^3/uL (2.0-7.7); Basophil# 0.02 X10^3/uL; Basophil% 0.3 % (0-1); Hematocrit 40.6 % (40-54); Hemoglobin 13.3 g/dL (13.0-16.5); Lymphocyte # 0.65 X10^3/ul (0.83-4.51); Lymphocyte % 10.4 % (19-41); Mean Corp Hgb Conc 32.8 g/dL (32-36); Mean Corpuscular Volume 88.5 fL (80-94); Mean Platelet Vol. 11.5 fl (6.2-12.0); Monocyte# 0.22 X10^3/uL; Monocyte% 3.5 % (0-10); NRBC Flagged by Analyzer 0 % (0-5); Neutrophil # 5.25 X10^3/uL (2.7-7.7); Neutrophil % 83.7 % (47-70); POSITIVE MORPHOLOGY YES; Platelet Count 185 K/mm3 (150-450); RBC Distribution Width CV 13.7 % (11.6-14.6); Red Blood Count 4.59 M/mm3 (4.6-6.2); White Blood Count 6.3 K/mm3 (4.4-11.0)
[2021-02-28 07:00] LABS: Differential Indicated SCAN CRITERIA MET
[2021-02-28 07:06] LABS: ALB/GLOB Ratio 0.5 RATIO (0.9-2.4); AST(SGOT) 57 U/L (15-37); Alanine Aminotransfer ALT/SGPT 24 U/L (16-61); Albumin, Serum 2.2 g/dL (3.2-5.0); Alkaline Phosphatase 60 U/L (45-117); Anion Gap 9 (5-15); BUN 18 mg/dL (7-18); BUN/Creat Ratio 21.2 RATIO (10-20); Calcium,Total 8.4 mg/dL (8.5-10.1); Chloride 106 mmol/L (98-107); Creatinine, Serum 0.85 mg/dL (0.70-1.30); EST Glomerular Filtration Rate 98 mL/min (>60); Est Glom Filt Rate - Afr Amer 118 mL/min (>60); Estimated Creatinine Clearance 105.75 ml/min; Globulin 4.5 g/dL (2.2-4.2); Glucose 139 mg/dL (74-106); Potassium 4.1 mmol/L (3.5-5.1); Protein, Total 6.7 g/dL (6.4-8.2); Sodium Level 139 mmol/L (136-145)
[2021-02-28] MEDS: Cholecalciferol (VIT D3) 25 MCG TABLET (1,000 UNITS) PO (10:08)
[2021-02-28] MEDS: dexAMETHasone 2 MG TABLET 6 MG PO (10:08)
[2021-02-28] MEDS: Benzonatate 100 MG Capsule PO ×2 (10:08→21:21)
[2021-02-28] MEDS: Enoxaparin 30 MG/0.3 ML Syringe SC ×2 (10:09→21:21)
--- NOTE | 2021-02-28 15:45 | CASEMGMT ---
FRITZ PEÑA Assessment: Face to Face with pt for initial transition planning/care coordination assessment. FRITZ PEÑA introduced self and role at [facility], pt voices understanding and consents to assessment. Pt is A/O x4 and answers all questions appropriately at this time. Pt lying in bed with O2 on in no distress. Care providers, pharmacy, and demographics verified/updated. Admitting Dx: acute hypoxic resp failure d/t COVID PCP:Guzman Specialists:Mary, cardio Preferred Pharmacy: [facility] Insurance: MMO Prescription Benefit: yes LW/HPOA: Pt denies having a LW/DPOA and denies need for info regarding AD. LNOK: Cynthia Miranda, ; Celso Miranda, son Living Arrangements: Pt lives with and son in a two story house with two steps to enter. Pt reports he is I in ADL's and denies concerns at home. Transportation: Pt drives self and denies concerns with transportation. DME/HHC/SNF: Pt has access to DME but does not need. Pt denies hx of HHC or SNF stays. Pt states he was first tested at [facility] in [place]. His family is negative and he is able to quarantine from them in the home by using separate bedrooms and bathrooms and pt has already been doing this. Pt has family who can provide him with groceries and supplies. Verbally gave pt list of local in network DME companies, pt has no preference. Pt states no concerns with going home at time of dc. Pt states no further concerns/needs. CM to follow. Advised pt to ask CM if any further question/concerns/needs arise, voices understanding. Pt Goal: Home Plan: Home
--- NOTE | 2021-02-28 16:21 | PCM.PN.HOSP ---
Subjective Subjective Follow-up on acute hypoxic respiratory failure secondary to acute COVID-19 pneumonia: Patient was seen and examined. He is currently on 3 L of oxygen. He however required up to 12 L of oxygen on exertion. Denied any new complaints. Objective Data Objective Data Vital Signs: Vital Signs Temp Pulse Resp BP Pulse Ox 98.2 F 70 26 H 117/71 95 02/28/21 16:11 02/28/21 16:11 02/28/21 16:11 02/28/21 16:11 02/28/21 16:11 Oxygen Flow Rate (L/min) [ 15 AMBULATING with Oxygen #1] Oxygen Flow Rate (L/min) [At 5 REST with Oxygen] Oxygen Flow Rate (L/min) [At 0 REST on Room Air] Oxygen Flow Rate (L/min) 3 Oxygen Delivery Method Nasal Cannula Weight: 102.5 kg Body Mass Index (BMI) 29.8 Intake & Output: Intake and Output for Last 24 Hours 02/26/21 02/27/21 02/28/21 23:59 23:59 23:59 Intake Total 550 / 550 1450 / 1450 Output Total 350 / 350 Balance 550 / 550 1100 / 1100 Lab / Micro Data Result Diagrams: 02/28/21 05:50 02/28/21 05:50 Labs: Laboratory Results - last 24 hr 02/27/21 13:37: PT 12.9, INR 1.0, Fibrinogen > 900 H 02/27/21 13:37: Alkaline Phosphatase 70, Lactate Dehydrogenase 842 H, Total Creatine Kinase 839 H 02/27/21 13:37: B-Natriuretic Peptide 246.6 H 02/27/21 13:37: Procalcitonin 0.36 H 02/28/21 05:50: WBC 6.3, RBC 4.59 L, Hgb 13.3, Hct 40.6, MCV 88.5, MCH 29.0, MCHC 32.8, RDW Std Deviation 45.0 H, RDW Coeff of Shonda 13.7, Plt Count 185, MPV 11.5, Immature Gran % (Auto) 2.100 H, Neut % (Auto) 83.7 H, Lymph % (Auto) 10.4 L, [place] % (Auto) 3.5, Eos % (Auto) 0.0, Baso % (Auto) 0.3, Absolute Neuts (auto) 5.3, Absolute Lymphs (auto) 0.65 L, Nucleated RBC % 0 02/28/21 05:50: Sodium 139, Potassium 4.1, Chloride 106, Carbon Dioxide 24.0, Anion Gap 9, BUN 18, Creatinine 0.85, Estim Creat Clear Calc 105.75, Est GFR (MDRD) Af Amer 118, Est GFR (MDRD) Non-Af 98, BUN/Creatinine Ratio 21.2 H, Glucose 139 H, Calcium 8.4 L, Total Bilirubin 0.50, AST 57 H, ALT 24, Alkaline Phosphatase 60, Total Protein 6.7, Albumin 2.2 L, Globulin 4.5 H, Albumin/Globulin Ratio 0.5 L Micro: Microbiology 02/27/21 23:00 Interface Orders Legionella Antigen - Final 02/27/21 23:00 Interface Orders Streptococcus pneumoniae Antigen (M - Final 02/27/21 14:45 Nasal Secretion SARS-CoV-2 Antigen (Rapid) - Final SARS-CoV-2 (COVID 19) Physical Exam Narrative Physical exam: General: Alert, Oriented x3, Cooperative, No apparent distress, comfortable on 3 L of oxygen HEENT: Atraumatic Oral: Moist Mucosa Neck: Supple Lungs: Clear to auscultation Cardiovascular: HS I+II, regular, no murmurs Abdomen: Bowel Sounds Present, Soft, Non Tender Extremities: No edema Assessment & Plan Assessment/Plan (1) Hypoxia: (2) Pneumonia due to COVID-19 virus: PLAN: 1. Acute hypoxic respiratory failure due to COVID-19 pneumonia Admitting chest x-ray shows bibasilar pneumonia Urine Legionella antigen negative, blood cultures pending Continue on dexamethasone and remdesivir 2. Hyperlipidemia, continue on statin 3. DVT prophylaxis: Lovenox Charges/Coding Visit Charges Inpatient E&M: 39081 Subs Hosp L2
[2021-02-28] MEDS: Atorvastatin Calcium 10 MG Tablet PO (21:21)
[2021-02-28] MEDS: 0.9% Saline Lock 10 ML Syringe IV (21:22)
[2021-03-01] VITALS (11 sets, daily range): BP systolic 127–138; BP diastolic 67–85; PULSE 58–90; RESP 18–20; TEMP 36.3–36.6; O2SAT 91–96
[2021-03-01 07:56] LABS: Absolute Lymphocyte Count 1.21 X10^3/uL (0.83-4.51); Absolute Neutrophil Count 9.6 X10^3/uL (2.0-7.7); Basophil# 0.05 X10^3/uL; Basophil% 0.4 % (0-1); Eosinophil# 0.46 X10^3/uL; Eosinophils% 3.8 % (0-5); Hemoglobin 13.5 g/dL (13.0-16.5); Lymphocyte # 1.21 X10^3/ul (0.83-4.51); Mean Corp Hgb Conc 32.9 g/dL (32-36); Mean Corpuscular Hgb 29.3 pg (27.0-32.0); Mean Corpuscular Volume 88.9 fL (80-94); Mean Platelet Vol. 11.4 fl (6.2-12.0); Monocyte# 0.56 X10^3/uL; Monocyte% 4.6 % (0-10); NRBC Flagged by Analyzer 0 % (0-5); Neutrophil # 9.56 X10^3/uL (2.7-7.7); POSITIVE MORPHOLOGY YES; Platelet Count 264 K/mm3 (150-450); RBC Distribution Width CV 13.7 % (11.6-14.6); RBC Distribution Width SD 44.7 fl (35.1-43.9); Red Blood Count 4.61 M/mm3 (4.6-6.2); White Blood Count 12.1 K/mm3 (4.4-11.0)
[2021-03-01 08:02] LABS: Differential Indicated SCAN CRITERIA MET
[2021-03-01 08:40] LABS: ALB/GLOB Ratio 0.5 RATIO (0.9-2.4); AST(SGOT) 49 U/L (15-37); Alanine Aminotransfer ALT/SGPT 25 U/L (16-61); Albumin, Serum 2.1 g/dL (3.2-5.0); Alkaline Phosphatase 59 U/L (45-117); Anion Gap 9 (5-15); BUN 29 mg/dL (7-18); BUN/Creat Ratio 34.4 RATIO (10-20); Calcium,Total 8.2 mg/dL (8.5-10.1); Chloride 107 mmol/L (98-107); Creatinine, Serum 0.84 mg/dL (0.70-1.30); EST Glomerular Filtration Rate 99 mL/min (>60); Est Glom Filt Rate - Afr Amer 120 mL/min (>60); Estimated Creatinine Clearance 107.01 ml/min; Globulin 4.2 g/dL (2.2-4.2); Glucose 132 mg/dL (74-106); Potassium 4.3 mmol/L (3.5-5.1); Protein, Total 6.3 g/dL (6.4-8.2); Sodium Level 139 mmol/L (136-145)
[2021-03-01 08:43] LABS: Differential Comment SCANNED; Reactive Lymphocyte 1+
[2021-03-01] MEDS: dexAMETHasone 2 MG TABLET 6 MG PO (10:17)
[2021-03-01] MEDS: Cholecalciferol (VIT D3) 25 MCG TABLET (1,000 UNITS) PO (10:17)
[2021-03-01] MEDS: Enoxaparin 30 MG/0.3 ML Syringe SC ×2 (10:18→21:55)
[2021-03-01] MEDS: Benzonatate 100 MG Capsule PO ×2 (10:18→21:56)
[2021-03-01] MEDS: Acetaminophen 325 MG Tablet 650 MG PO (10:37)
--- NOTE | 2021-03-01 12:25 | PCM.PN.HOSP ---
Subjective Subjective Follow-up on acute hypoxic respiratory failure secondary to acute COVID-19 pneumonia: Patient was seen and examined. He is currently on 6 L of oxygen. He denied any new complaints. Objective Data Objective Data Vital Signs: Vital Signs Temp Pulse Resp BP Pulse Ox 97.9 F 65 20 H 137/85 H 91 03/01/21 10:23 03/01/21 10:23 03/01/21 10:23 03/01/21 10:23 03/01/21 10:23 Oxygen Flow Rate (L/min) [ 15 AMBULATING with Oxygen #1] Oxygen Flow Rate (L/min) [At 5 REST with Oxygen] Oxygen Flow Rate (L/min) [At 0 REST on Room Air] Oxygen Flow Rate (L/min) 6 Oxygen Delivery Method Nasal Cannula Weight: 102.5 kg Body Mass Index (BMI) 29.8 Intake & Output: Intake and Output for Last 24 Hours 02/27/21 02/28/21 03/01/21 23:59 23:59 23:59 Intake Total 550 / 550 1700 / 1700 500 / 500 Output Total 350 / 350 Balance 550 / 550 1350 / 1350 500 / 500 Lab / Micro Data Result Diagrams: 03/01/21 06:50 03/01/21 06:50 Labs: Laboratory Results - last 24 hr 03/01/21 06:50: WBC 12.1 H, RBC 4.61, Hgb 13.5, Hct 41.0, MCV 88.9, MCH 29.3, MCHC 32.9, RDW Std Deviation 44.7 H, RDW Coeff of Shonda 13.7, Plt Count 264, MPV 11.4, Immature Gran % (Auto) 2.200 H, Neut % (Auto) 79.0 H, Lymph % (Auto) 10.0 L, [place] % (Auto) 4.6, Eos % (Auto) 3.8, Baso % (Auto) 0.4, Absolute Neuts (auto) 9.6 H, Absolute Lymphs (auto) 1.21, Nucleated RBC % 0, Differential Comment SCANNED, Reactive Lymphocytes 1+ 03/01/21 06:50: Sodium 139, Potassium 4.3, Chloride 107, Carbon Dioxide 23.0, Anion Gap 9, BUN 29 H, Creatinine 0.84, Estim Creat Clear Calc 107.01, Est GFR (MDRD) Af Amer 120, Est GFR (MDRD) Non-Af 99, BUN/Creatinine Ratio 34.4 H, Glucose 132 H, Calcium 8.2 L, Total Bilirubin 0.40, AST 49 H, ALT 25, Alkaline Phosphatase 59, Total Protein 6.3 L, Albumin 2.1 L, Globulin 4.2, Albumin/Globulin Ratio 0.5 L Micro: Microbiology 02/27/21 14:40 Blood Culture (Wb) - Right Hand Blood Culture - Preliminary No growth in 48 hours. 02/27/21 14:33 Blood Culture (Wb) - Anticubital Left Blood Culture - Preliminary No growth in 48 hours. 02/27/21 23:00 Interface Orders Legionella Antigen - Final 02/27/21 23:00 Interface Orders Streptococcus pneumoniae Antigen (M - Final 02/27/21 14:45 Nasal Secretion SARS-CoV-2 Antigen (Rapid) - Final SARS-CoV-2 (COVID 19) Physical Exam Narrative Physical exam: General: Alert, Oriented x3, Cooperative, No apparent distress, comfortable on 6 L of oxygen HEENT: Atraumatic Oral: Moist Mucosa Neck: Supple Lungs: Clear to auscultation Cardiovascular: HS I+II, regular, no murmurs Abdomen: Bowel Sounds Present, Soft, Non Tender Extremities: No edema Assessment & Plan Assessment/Plan (1) Hypoxia: (2) Pneumonia due to COVID-19 virus: PLAN: 1. Acute hypoxic respiratory failure due to COVID-19 pneumonia, waxes and wanes Patient is now on 6 L of oxygen; was on 3 L of oxygen earlier on Admitting chest x-ray shows bibasilar pneumonia Urine streptococcal and Legionella antigen negative, blood cultures showed no growth in 48 Continue on dexamethasone and remdesivir Continue to encourage use of incentive spirometer 2. Hyperlipidemia, continue on statin 3. DVT prophylaxis: Lovenox Charges/Coding Visit Charges Inpatient E&M: 31800 Subs Hosp L2
[2021-03-01] MEDS: 0.9% Saline Lock 10 ML Syringe IV (21:56)
[2021-03-01] MEDS: Atorvastatin Calcium 10 MG Tablet PO (21:56)
[2021-03-02] VITALS (11 sets, daily range): BP systolic 135–150; BP diastolic 83–88; PULSE 59–74; RESP 18–20; TEMP 36.5–36.9; O2SAT 88–99
--- NOTE | 2021-03-02 00:36 | PCS.PANDOC ---
PANDEMIC DOCUMENTATION INITIATED: Date: 03/01/2021 Time: 1900
[2021-03-02] MEDS: 0.9% Saline Lock 10 ML Syringe IV ×2 (01:42→14:23)
--- NOTE | 2021-03-02 06:29 | NURSING ---
THIS NURSE ENTERED PATIENTS ROOM TO COMPLETE WALKING PULSE OX TEST WITH PT. PT REQUESTED THAT TEST BE COMPLETED LATER THIS DATE PATIENT DOES NOT FEEL UP TO THE TASK. PT STATED I WAS JUST UP TO THE BATHROOM I CANNOT GET UP AGAIN RIGHT NOW.
[2021-03-02 06:44] LABS: Absolute Neutrophil Count 12.2 X10^3/uL (2.0-7.7); Basophil# 0.04 X10^3/uL; Basophil% 0.3 % (0-1); Eosinophil# 0.01 X10^3/uL; Eosinophils% 0.1 % (0-5); Hematocrit 40.5 % (40-54); Hemoglobin 13.6 g/dL (13.0-16.5); Lymphocyte % 10.1 % (19-41); Mean Corp Hgb Conc 33.6 g/dL (32-36); Mean Corpuscular Hgb 29.6 pg (27.0-32.0); Mean Corpuscular Volume 88.2 fL (80-94); Mean Platelet Vol. 10.6 fl (6.2-12.0); Monocyte# 0.69 X10^3/uL; Monocyte% 4.7 % (0-10); NRBC Flagged by Analyzer 0 % (0-5); Neutrophil % 82.2 % (47-70); Platelet Count 305 K/mm3 (150-450); RBC Distribution Width CV 13.7 % (11.6-14.6); RBC Distribution Width SD 44.5 fl (35.1-43.9); Red Blood Count 4.59 M/mm3 (4.6-6.2); White Blood Count 14.8 K/mm3 (4.4-11.0)
[2021-03-02 07:06] LABS: ALB/GLOB Ratio 0.5 RATIO (0.9-2.4); AST(SGOT) 39 U/L (15-37); Alanine Aminotransfer ALT/SGPT 27 U/L (16-61); Albumin, Serum 2.2 g/dL (3.2-5.0); Alkaline Phosphatase 69 U/L (45-117); Anion Gap 9 (5-15); BUN 27 mg/dL (7-18); BUN/Creat Ratio 32.1 RATIO (10-20); Chloride 106 mmol/L (98-107); Creatinine, Serum 0.84 mg/dL (0.70-1.30); EST Glomerular Filtration Rate 99 mL/min (>60); Est Glom Filt Rate - Afr Amer 120 mL/min (>60); Estimated Creatinine Clearance 107.01 ml/min; Globulin 4.1 g/dL (2.2-4.2); Glucose 106 mg/dL (74-106); Potassium 3.9 mmol/L (3.5-5.1); Protein, Total 6.3 g/dL (6.4-8.2); Sodium Level 138 mmol/L (136-145)
[2021-03-02] MEDS: dexAMETHasone 2 MG TABLET 6 MG PO (10:29)
[2021-03-02] MEDS: Benzonatate 100 MG Capsule PO ×2 (10:30→21:55)
[2021-03-02] MEDS: Acetaminophen 325 MG Tablet 650 MG PO (10:30)
[2021-03-02] MEDS: Cholecalciferol (VIT D3) 25 MCG TABLET (1,000 UNITS) PO (10:30)
[2021-03-02] MEDS: Enoxaparin 30 MG/0.3 ML Syringe SC ×2 (10:32→21:56)
--- NOTE | 2021-03-02 10:47 | NURSING ---
Walking trial done, spo2 97% on 6L NC at rest. Pt maintained between 90-92% on 6L while walking. Pt walked for approx 5 min in his room. Pt spo2 dropped down to 88% on 6L NC only when pt was talking and walking.
[2021-03-02] MEDS: Furosemide 40 MG/4 ML Vial IV (14:18)
--- NOTE | 2021-03-02 14:30 | NURSING ---
Sitting in chair. Pt states ear feels like there is a build up of wax. This nurse looked inside ear but did not see any drainage. Pt given scheduled lasix and education given. spo2 99% on 6L Nc at rest. This nurse weaned oxygen down to 3L NC.
--- NOTE | 2021-03-02 17:02 | PCM.PN.HOSP ---
Subjective Subjective Follow-up on acute hypoxic respiratory failure secondary to acute COVID-19 pneumonia: Patient was seen and examined. He complains of feeling short of breath. His oxygen requirements appear to have worsened a little bit; he is currently on 5L oxygen. Objective Data Objective Data Vital Signs: Vital Signs Temp Pulse Resp BP Pulse Ox 97.8 F 66 20 H 150/88 H 99 03/02/21 10:36 03/02/21 10:36 03/02/21 10:36 03/02/21 10:36 03/02/21 14:30 Oxygen Flow Rate (L/min) [ 6 AMBULATING with Oxygen #2] Oxygen Flow Rate (L/min) [ 6 AMBULATING with Oxygen #1] Oxygen Flow Rate (L/min) [At 6 REST with Oxygen] Oxygen Flow Rate (L/min) [At 0 REST on Room Air] Oxygen Flow Rate (L/min) 3 Oxygen Delivery Method Nasal Cannula Weight: 102.5 kg Body Mass Index (BMI) 29.8 Intake & Output: Intake and Output for Last 24 Hours 02/28/21 03/01/21 03/02/21 23:59 23:59 23:59 Intake Total 1700 / 1700 1470 / 1470 420 / 420 Output Total 350 / 350 Balance 1350 / 1350 1470 / 1470 420 / 420 Lab / Micro Data Result Diagrams: 03/02/21 06:10 03/02/21 06:10 Labs: Laboratory Results - last 24 hr 03/02/21 06:10: WBC 14.8 H, RBC 4.59 L, Hgb 13.6, Hct 40.5, MCV 88.2, MCH 29.6, MCHC 33.6, RDW Std Deviation 44.5 H, RDW Coeff of Shonda 13.7, Plt Count 305, MPV 10.6, Immature Gran % (Auto) 2.600 H, Neut % (Auto) 82.2 H, Lymph % (Auto) 10.1 L, [place] % (Auto) 4.7, Eos % (Auto) 0.1, Baso % (Auto) 0.3, Absolute Neuts (auto) 12.2 H, Absolute Lymphs (auto) 1.50, Nucleated RBC % 0 03/02/21 06:10: Sodium 138, Potassium 3.9, Chloride 106, Carbon Dioxide 23.0, Anion Gap 9, BUN 27 H, Creatinine 0.84, Estim Creat Clear Calc 107.01, Est GFR (MDRD) Af Amer 120, Est GFR (MDRD) Non-Af 99, BUN/Creatinine Ratio 32.1 H, Glucose 106, Calcium 8.0 L, Total Bilirubin 0.50, AST 39 H, ALT 27, Alkaline Phosphatase 69, Total Protein 6.3 L, Albumin 2.2 L, Globulin 4.1, Albumin/Globulin Ratio 0.5 L Micro: Microbiology 02/27/21 14:40 Blood Culture (Wb) - Right Hand Blood Culture - Preliminary No growth in 48 hours. 02/27/21 14:33 Blood Culture (Wb) - Anticubital Left Blood Culture - Preliminary No growth in 48 hours. 02/27/21 23:00 Interface Orders Legionella Antigen - Final 02/27/21 23:00 Interface Orders Streptococcus pneumoniae Antigen (M - Final 02/27/21 14:45 Nasal Secretion SARS-CoV-2 Antigen (Rapid) - Final SARS-CoV-2 (COVID 19) Physical Exam Narrative Physical exam: General: Alert, Oriented x3, Cooperative, No apparent distress, comfortable on 5 L of oxygen HEENT: Atraumatic Oral: Moist Mucosa Neck: Supple Lungs: Diminished to auscultation Cardiovascular: HS I+II, regular, no murmurs Abdomen: Bowel Sounds Present, Soft, Non Tender Extremities: No edema Assessment & Plan Assessment/Plan (1) Hypoxia: (2) Pneumonia due to COVID-19 virus: PLAN: 1. Acute hypoxic respiratory failure due to COVID-19 pneumonia, slightly worse Patient remains on 6L oxygen Admitting chest x-ray shows bibasilar pneumonia Urine streptococcal and Legionella antigen negative, blood cultures showed no growth in 48 Continue on dexamethasone and remdesivir Continue to encourage use of incentive spirometer Trial of Lasix 40 mg IV x1 2. Hyperlipidemia, continue on statin 3. DVT prophylaxis: Lovenox Charges/Coding Visit Charges Inpatient E&M: 91891 Subs Hosp L2
[2021-03-02] MEDS: Atorvastatin Calcium 10 MG Tablet PO (21:55)
[2021-03-03] MEDS: 0.9% Saline Lock 10 ML Syringe IV (02:16)
[2021-03-03 02:23] VITALS: BP 138/85; PULSE 69; RESP 20; TEMP 37.1; O2SAT 93
--- NOTE | 2021-03-03 04:48 | NURSING ---
Pt requests that walking test be performed later in the day.
[2021-03-03 08:30] VITALS: BP 161/86; PULSE 84; RESP 20; TEMP 36.9; O2SAT 97
[2021-03-03] MEDS: dexAMETHasone 2 MG TABLET 6 MG PO (09:42)
[2021-03-03] MEDS: Cholecalciferol (VIT D3) 25 MCG TABLET (1,000 UNITS) PO (09:42)
[2021-03-03] MEDS: Benzonatate 100 MG Capsule PO (09:42)
[2021-03-03] MEDS: Enoxaparin 30 MG/0.3 ML Syringe SC (09:42)
[2021-03-03 09:44] VITALS: O2SAT 86; O2SAT 87; O2SAT 90; O2SAT 91; O2SAT 97
[2021-03-03 12:00] VITALS: O2SAT 91
--- NOTE | 2021-03-03 12:49 | PCM.DC ---
Discharge Instructions Diet Discharge Diet: No restrictions Activity Discharge Activity: Return to Normal Activity Follow Up Care Test Results: Test results from this visit will be discussed in further detail at your follow-up appointment, if applicable. Discharge Plan Admission Admit Date/Time: 02/27/21 15:30 Primary Reason for Your Visit: Acute hypoxic respiratory failure/acute COVID-19 pneumonia Attending Provider: Char Basurto Primary Care Provider: Orestes Hinds Instructions Additional Instructions / Restrictions: You are being discharged with oxygen. Continue to use your oxygen all the time. Continue to use your incentive spirometer. Continue to remain active and eat healthy. Let your doctor know if you develop fever >101.3F or have progressive worsening shortness of breath. Follow-up with your primary care doctor to have your continued oxygen use reevaluated. Be careful of going near open flames whilst on oxygen. Complete your Decadron as prescribed. Continue to use your inhaler as needed for shortness of breath. Continue to quarantine for 20 days total from the start of your symptoms. Discharge Orders/Prescriptions Prescriptions: New albuterol sulfate 90 mcg/actuation HFA aerosol inhaler 2 puff inhalation Q6H PRN (Reason: shortness of breath or wheezing) 30 Days Qty: 8.5 RF: 0 Continued atorvastatin 10 MG tablet 10 mg PO DAILY RF: 0 cholecalciferol (vitamin D3) [Vitamin D3] 1,000 UNIT tablet 1,000 unit PO DAILY RF: 0 benzonatate 100 mg Capsule 100 mg PO BID RF: 0 dexamethasone 6 mg Tablet 6 mg PO DAILY 6 Days Qty: 6 RF: 0 Discontinued coenzyme Q10 [CoQ-10] 100 mg Capsule 100 mg PO DAILY RF: 0 Referrals / Follow Up: Orestes Hinds [Primary Care Provider] - Within 2 Weeks Disposition Disposition (needs filled in before D/C Order can be placed): Home, Self Care
--- NOTE | 2021-03-03 12:53 | PCM.DC.SUM ---
Providers Date of Admission: 02/27/21 Date of Discharge: 03/03/21 Primary Care Physician: Orestes Hinds Reason For Visit: ACUTE HYPOXIC RESPIRATORY FAILURE DUE TO COVID Diagnosis Discharge Diagnosis (1) Hypoxia: Status: Acute Code(s): R09.02 - Hypoxemia (2) Pneumonia due to COVID-19 virus: Status: Acute Code(s): U07.1 - COVID-19; J12.82 - Pneumonia due to coronavirus disease 2019 Medications at Discharge Home Medications atorvastatin 10 mg PO DAILY 04/28/15 cholecalciferol (vitamin D3) [Vitamin D3] 1,000 unit PO DAILY 04/28/15 benzonatate 100 mg PO BID 02/27/21 albuterol sulfate 2 puff INHALATION Q6H PRN 30 Days #8.5 g 03/03/21 dexamethasone 6 mg PO DAILY 6 Days #6 tab 03/03/21 Hospital Course Operations None Procedures None Summary of Care Provided Minutes Spent on Discharge: 45 Hospital Course: 60-year-old male with past medical history of hyperlipidemia who presented on 02/27/21 with progressive shortness of breath ongoing for about 2 days. Patient has had COVID-19 symptoms ongoing for about 6 days. He was saturating 84% on room air at home. He had an associated cough productive of whitish sputum. Patient is admitting chest x-ray showed bibasilar pneumonia. Urine streptococcal and Legionella antigen were negative. Blood culture showed no growth. He was managed on dexamethasone and remdesivir. Patient continued to improve. He was kept for a couple of days more as patient required more oxygen on exertion. Finally on the day of discharge, he remained on 3 L even with HD session. He was strongly advised to keep using his incentive spirometer and complete 10 days of his dexamethasone. He will need to follow-up with his primary care doctor in 1 to 2 weeks. He will complete 20 days of quarantine. Physical Exam Narrative Physical exam: General: Alert, Oriented x3, Cooperative, No apparent distress, comfortable on 3 L of oxygen HEENT: Atraumatic Oral: Moist Mucosa Neck: Supple Lungs: Diminished to auscultation Cardiovascular: HS I+II, regular, no murmurs Abdomen: Bowel Sounds Present, Soft, Non Tender Extremities: No edema Weight / BMI Weight Weight: 102.5 kg Body Mass Index (BMI) 29.8 ABG / Lab / Microbiology Data Result Diagrams: 03/02/21 06:10 03/02/21 06:10 Microbiology: Microbiology 02/27/21 14:40 Blood Culture (Wb) - Right Hand Blood Culture - Preliminary No growth in 48 hours. 02/27/21 14:33 Blood Culture (Wb) - Anticubital Left Blood Culture - Preliminary No growth in 48 hours. 02/27/21 23:00 Interface Orders Legionella Antigen - Final 02/27/21 23:00 Interface Orders Streptococcus pneumoniae Antigen (M - Final 02/27/21 14:45 Nasal Secretion SARS-CoV-2 Antigen (Rapid) - Final SARS-CoV-2 (COVID 19) D/C Instructions Discharge Diet: No restrictions Meaningful Use Info Meaningful Use Diagnoses (Choose all that apply): None applicable Discharge Plan Admission Admit Date/Time: 02/27/21 15:30 Primary Reason for Your Visit: Acute hypoxic respiratory failure/acute COVID-19 pneumonia Attending Provider: Char Basurto Primary Care Provider: Orestes Hinds Instructions Additional Instructions / Restrictions: You are being discharged with oxygen. Continue to use your oxygen all the time. Continue to use your incentive spirometer. Continue to remain active and eat healthy. Let your doctor know if you develop fever >101.3F or have progressive worsening shortness of breath. Follow-up with your primary care doctor to have your continued oxygen use reevaluated. Be careful of going near open flames whilst on oxygen. Complete your Decadron as prescribed. Continue to use your inhaler as needed for shortness of breath. Continue to quarantine for 20 days total from the start of your symptoms. Discharge Orders/Prescriptions Prescriptions: New albuterol sulfate 90 mcg/actuation HFA aerosol inhaler 2 puff inhalation Q6H PRN (Reason: shortness of breath or wheezing) 30 Days Qty: 8.5 RF: 0 Continued atorvastatin 10 MG tablet 10 mg PO DAILY RF: 0 cholecalciferol (vitamin D3) [Vitamin D3] 1,000 UNIT tablet 1,000 unit PO DAILY RF: 0 benzonatate 100 mg Capsule 100 mg PO BID RF: 0 dexamethasone 6 mg Tablet 6 mg PO DAILY 6 Days Qty: 6 RF: 0 Discontinued coenzyme Q10 [CoQ-10] 100 mg Capsule 100 mg PO DAILY RF: 0 Referrals / Follow Up: Orestes Hinds [Primary Care Provider] - Within 2 Weeks Disposition Disposition (needs filled in before D/C Order can be placed): Home, Self Care Charges/Coding Visit Charges Inpatient E&M: 40202 Disch Hosp
[2021-03-03 12:58] VITALS: BP 149/84; PULSE 84; RESP 18; TEMP 36.9; O2SAT 93
--- NOTE | 2021-03-03 13:58 | CASEMGMT ---
FRITZ PEÑA NOTE: Pt being discharged home. Ambulatory pulse ox has been completed. Pt qualifies for Home O2--3 l/m w/@ rest and 5 l/m w/exertion. Per initial FRITZ PEÑA assessment, pt does not have preference of DME co. TC to pt's room. Reviewed w/pt process for Home O2 set-up and he voices understanding. He is aware to call [facility] prior to discharge so arrangements can be made for delivery of remainder of Home O2. Pt states he plans to d/c to different location than his home until he is out of COVID isolation precautions. Address pt will be going to is: [address] [place] [address] Script for O2 faxed to [facility] and Natasha notified portable tank will be taken from [facility] supply. Address pt discharging to was also provided to [facility]. Pt denies having any other discharge needs or concerns. Reji JOYA RN CM
== END 2021-03-03 16:14 | disposition home or self-care (01) | DRG 177 ==
LOC: ED 15:25 → MS3 16:05
PROVIDERS: Admitting Provider Student in an Organized Health Care Education/Training Program; Emergency Provider Emergency Medicine; PCP Family Medicine; Visit Provider Internal Medicine
DX: U07.1 COVID-19 (principal); J12.82 Pneumonia due to coronavirus disease 2019; J96.01 Acute respiratory failure with hypoxia; E78.5 Hyperlipidemia, unspecified; Z79.899 Other long term (current) drug therapy
CPT/HCPCS: 36415; 71045; 80048; 80053; 82550; 83605; 83615; 83880; 84075; 84145; 85025; 85384; 85610; 87040; 87070; 87205; 87426; 87449; 93005; 94640; 94762; 99251; 99284; J7040; J7050; A4216; G0463; J0248; J1940

== ENCOUNTER 2021-06-10 07:46 | Outpatient (CLI) | payer OTHER, SELFPAY ==
--- NOTE | 2021-06-10 07:49 | RDU_ITS ---
Reason For Study: HTN Right Renal Artery Left Renal Artery Right renal artery ostium 96/25 Left renal artery ostium 82/21 RSV/EDV. PSV/EDV. Right renal artery proximal 133/33 Left renal artery proximal PSV/EDV PSV/EDV. 99/22 . Right renal artery mid 173/49 LRA mid 1: 178/39 cm/s PSV/EDV. LRA distal 1: 169/46 cm/s Right renal artery distal 129/33 PSV/EDV. LRA mid 2: 206/40 cm/s Right RAR 1.92. LRA distal 2: 122/30 cm/s. Right Renal Parenchyma Left RAR 2.29. Upper Pole Medula 53/16 PSV/EDV. Left Renal Parenchyma Right upper pole medulla EDR 0.30 . Left upper pole medulla 49/15 Right upper pole medulla R.I. PSV/EDV . 0.69 . Left upper pole medulla EDR 0.31 . Upper Praful Cortx 48/13 PSV/EDV. Left upper pole medulla R.I. 0.71 . Right upper pole cortex EDR 0.27 . UP Cortex 27/10 PSV/EDV. Right upper pole cortex R.I. 0.73 . Left upper pole cortex EDR 0.37 . Right lower Pole medulla 40/11 Left upper pole cortex R.I. 0.64 . PSV/EDV . Left lower Pole medulla 50/15 Right lower pole medulla EDR 0.28 . PSV/EDV . Right lower pole medulla R.I. Left lower pole medulla EDR 0.30 . 0.72 . Left lower pole medulla R.I. 0.69 . Lower Pole Cortex 23/9 PSV/EDV. Lower Pole Cortx 21/8 PSV/EDV. Right lower pole cortex EDR 0.39 . Left lower pole cortex EDR 0.38 . Right lower pole cortex R.I. 0.60 . Left lower pole cortex R.I. 0.61 . Right Renal Hilar Left Renal Hilar Right Hilar avg 60/20 PSV/EDV. LT Hilar avg 101/28 PSV/EDV . Right hilar acceleration time 40 Left hilar acceleration time 40 m/sec. m/sec. Right Renal Dimensions Left Renal Dimensions Right kidney size 10.68 cm . Left kidney size 11.79 cm . Right cortical dimension 1.53 cm . Left cortical dimension 1.57 cm . Aorta Proximal abdominal aorta 1.91cm x 2.06 cm . Proximal abdominal aorta peak systolic velocity is 90 cm/sec . Distal abdominal aorta 1.37cm x 1.43 cm . Distal abdominal aorta peak systolic velocity is 79 cm/sec . VL/Renal Artery Duplex Ultrasound Interpretation Summary Bilateral renal arteries with less than 60% degree of stenosis. Ordering Physician: Orestes Mackey Referring Physician: Orestes Hinds Performed By: Syeda Guido, KATHY, RVT
== END 2021-06-10 23:59 | disposition home or self-care (01) ==
LOC: CVS 07:48
PROVIDERS: PCP Family Medicine; Referring Provider Internal Medicine Cardiovascular Disease; Visit Provider Internal Medicine Cardiovascular Disease
DX: I25.10 Atherosclerotic heart disease of native coronary artery without angina pectoris (principal); I10 Essential (primary) hypertension; I25.2 Old myocardial infarction; E78.00 Pure hypercholesterolemia, unspecified
CPT/HCPCS: 93975

== ENCOUNTER → 2021-06-20 | Outpatient (CLI) | payer OTHER, SELFPAY ==
--- NOTE | 2021-06-20 14:04 | PCM.CR.HP2 ---
CR - History & Physical - General Arrival date:: 06/20/21 Arrival time:: 14:05 Date of Referral:: 06/04/21 Date of CR Evaluation:: 06/20/21 Referring Physician: Dr. Orestes Mackey Primary Diagnosis: WI<12months - History of Present Cardiac Event Onset Date: Enter Onset Date of cardiac illnesses in Comment field below Acute Myocardial Infarction within 12 months:: Yes - 06/03/2021 - Sleep Disorder Evaluation Hx of Sleep Apnea: No Do you snore loudly (louder than talking or can be heard through closed doors)?: No Do you often feel tired/ fatigued/ sleepy during daytime?: No Has anyone observed you stop breathing during sleep?: No History of Hypertension (for STOP score): Yes STOP Results: Negative - Medications Home Medications: Ambulatory Orders Medication Instructions Recorded cholecalciferol (vitamin D3) 1,000 unit PO DAILY 04/28/15 [Vitamin D3] aspirin 81 mg tablet,delayed 81 mg PO DAILY 06/01/21 release atorvastatin 40 mg tablet 40 mg PO QHS 06/01/21 hydrochlorothiazide 25 mg tablet 25 mg PO DAILY 06/01/21 coenzyme Q10 100 mg tablet 100 mg PO DAILY 06/03/21 lisinopril 10 mg tablet 10 mg PO BID #60 tab 06/03/21 zinc 50 mg tablet 50 mg PO DAILY 06/03/21 carvedilol 25 mg tablet 25 mg PO BID #180 tab 06/13/21 - Allergies Allergies/Adverse Reactions: Allergies No Known Allergies Allergy (Verified 06/03/21 09:02) Advanced Directives - Advanced Directives Power of Front Desk Representative: No Living Will: No Advance Directives Information Provided: No Advance Directives on File: No DNR Order?:: No Past Medical History - Covid-19 Screening Fever: No Unexplained muscle aches: No Current respiratory symptoms: No Upper respiratory infections symptoms: No Gastro-intestinal symptoms: No Hpe-Aswx-[id number] symptoms: No Has tested positive for COVID-19 in last 30 days: No Had contact w/person w/symptoms or Covid-19 (+) last 14 days: No Has High Risk Exposures ID'd by Health dept/Inf Control team: No 65 years or older:: No Lives in Assisted Living facility:: No Has a chronic lung disease or moderate to severe asthma:: No Has a serious heart condition:: Yes Immunocompromised:: No Severely obese (Body Mass Index of 40 or higher):: No Diabetic:: No Has chronic kidney disease undergoing dialysis:: No Has liver disease:: No - Past Medical Illness Medical History: Past Medical History (Last Updated 06/02/21 @ 16:39 by Treva Dominguez) Abnormal EKG R94.31 Atherosclerotic heart disease of [place] coronary artery without angina pectoris I25.10 Non obstructive coronary artery disease Essential hypertension I10 Family history of coronary artery disease Z82.49 High cholesterol E78.00 History of left heart catheterization (LHC) Onset Date: ~05/30/21 Z98.890 Mild Non Obstructive Coronary artery disease 05/30/21 @ [facility] [place], [place] Hyperlipemia E78.5 Hypoxia R09.02 Non-ST elevation (NSTEMI) myocardial infarction I21.4 Pneumonia due to COVID-19 virus U07.1, J12.82 Psoriasis L40.9 Pure hypercholesterolemia E78.00 Wound of right lower extremity S81.801A Traumatic. Penetrating with fat layer exposed. - Family History Summary Family History: Family History (Last Updated 06/02/21 @ 16:39 by Treva Dominguez) Mother Heart disease Father Heart disease Social History - Smoking History Smoking Status: Never smoker - Alcohol Use Alcohol Usage: Yes - socially - Substance Abuse Hx Substance Use: No - Occupation Occupation (List type of work in comments):: Employed Hours worked per day:: 8 - Hobbies, Recreation, Social Activities Hobbies: Other - hunting and fishing Social Environment - Status Marital Status: - Current Living Arrangements Living Environment:: Spouse - Children How many children do you have?: 2 Do any of your children live nearby?: Yes - Safety Do you feel safe in your surroundings?: Yes Review of Systems - Review of Systems Hints: Right click = Denies (Slash). Left click = Reports ([place]) Review of Present Symptoms: Reports: Dizziness/Lightheadedness, Fatigue, Appetite - Normal, Appetite - Special Diet, Sleep - Normal. Denies: Shortness of Breath at Rest, Shortness of Breath with Exertion, PVD, Operative Discomfort, Angina, Wound Healing, Heart Arrhythmia/Irregularities, Sexual Changes - Pain Is Patient Pain Free?: Yes Risk Factor Assessment - Vital Signs Pulse Ox: 97 - Pulse Pulse Rate: 59 Pulse Rhythm: Regular - Hypertension Blood Pressure Sitting - Right Arm: 110/60 - Diabetes Nutrition Referral for Diabetes: No - Obesity Height: 6 ft 1 in Weight:: 101.605 kg Weight in Pounds: 224.0 lbs Body Mass Index (BMI): 29.5 Nutritional Referral for Obesity: No - Physical Inactivity Physical Inactivity: Recreational activity - Risk Stratification Risk Guidelines: Lowest Risk: Risk Factor for Smoking, Moderate Risk: Risk Factor for Dyslipidemia, Risk Factor for Diabetes, Risk Factor for Obesity, Risk Factor for Hypertension, Risk Factor for Sedentary Lifestyle, Risk Factor for Depression - Family History Family History: Family History (Last Updated 06/02/21 @ 16:39 by Treva Dominguez) Mother Heart disease Father Heart disease Motivation - Motivation to Participate On a scale of 1 to 10, how prepared are you to commit to attending program?: 10 What do you see as barriers to successfully being able to complete the program?: none What do you see as the benefits of succesfully completing the program? In other words, what do you hope to get out of participating in the program?: better health Are there issues you are dealing with that will interfere with completing the program?: no Do you have a spouse or signficant other, family or friends who will help support you to complete the program?: spouse
--- NOTE | 2021-06-20 14:05 | PCM.CR.ITP ---
Diagnosis - General Information Admitting Diagnosis: [place]<12Months Personal Learning Style:: Audio/Visual Stage of change r/t lifestyle modifications:: Contemplation Gave educational material for:: Treating Heart Disease, Emotions & Heart Disease, Stress Management & Relaxation, Sleep Disorders & Heart Disease, How The Heart Works, What it means to have Heart Disease, How Coronary Artery Disease is Diagnosed, Heart Procedures, What Heart Medications Do, Risk Factors & Modifications, Living an Active Life, Nutrition - Education/Goals Cardiac Rehabilitation Goals: 1. Maintain the individual as the primary focus of care. 2. To improve the patient's quality of life. 3. Identification of cardiac risk factors and provide cardiac risk factor management. 4. Enhance the psychosocial status of the patient. 5. Reconditioning enough to allow the patient to resume customary activities. 6. Control symptoms of cardiac disease Personal Goals: Initial Assessment: Improve energy level, Improve knowledge of cardiac disease, Improve muscle strength and endurance, Improve diet and eating habits (eat healthier), Control risk factors (learn risk factor modification) Scale for measuring improvement of personal goals: Enter appropriate number in Comments. 2 = Unchanged. 3 = Slightly Better. 4 = Moderate Improvement. 5 = Met my Goal - Diagnosis & Disease Process Outcomes/Goals: Pt IDs own risk factors & lifestyle modifications by Session 10, Verbalizes symptoms of angina & response by session 3., Pt independently manages, Other Additional Outcomes/Goals: Plan/Interventions: Assist Pt to ID & engage in lifestyle modification to reduce CVD risk, Instruct on individual risk factors, Review symptoms of angina & emergency actions, Review secondary diagnosis & identify educational needs., Other see comment 30 day Reassessments:: Not Met 30 day Reassessments:: Not Met 30 day Reassessments:: Not Met 30 day Reassessments:: Not Met Final Reassessments:: Not Met - Safety Referral to Physical Therapy: No Referral to [facility] Case Management: No Fall Risk Assessed:: Yes Assistive Devices:: None Exercise - Initial Assessment - Visit Date of Eval: 06/20/21 Mets: Pre-: >3 METS for 30 minutes by discharge, >5 METS for 30 minutes by discharge, >7 METS for 30 minutes by discharge, Unable to meet goal due to: (see comment below) - Physician Prescribed Exercise Modalities: Treadmill, Rower, Airdyne, NuStep, SciFit, Lateral [place] Frequency: 3x/week for 12 weeks [36 sessions] Intensity: 60-80% of age predicted maximum heart rate reserve Current METSs:: 4 Target Heart Rate:: 105-136 Resting Blood Pressure: 110/60 - Outcomes & Goals Goals:: Verbalizes understanding of THR, RPE & goal METS by session 6, Documents in home exercise log/reports 30 min aerobic 5 day/wk by DC, Demonstrates accurate pulse taking by DC, Other additional outcome/goals: see below - Intervention & Plan Exercise Program Goals: Instruct on personal THR & RPE, Instruct on MET level & personal MET goal, Show patient to take own pulse /validate performance until accurate, Instruct on home exercise, Other additional plan/int - Physical Activity Home Exercise Physical Activity - Home Exercise: Safe Exercise, Warm-up, Self-monitoring, Cool-Down, Home Exercise > 30 min Daily, Sitting Time <3 hours/daily - Outcomes & Goals Outcomes/Goals: Demonstrates correct Warm-up/exercise Cool-Down (S3) if = 2.5 METs, Verbalizes symptoms of exercise intolerance by Session 3 (S3), Demonstrate safe equipment use (S3) & follows exercise prescrition (6), Other: See below - Intervention & Plan Plan/Intervention: Instruct warm-up & cool-down if exercising at > 2 METs, Instruct on symptoms of exercise intolerance & actions to take, Instruct & monitor on saf, Assess intial functional capacity & safety risk, Other See below Nutrition - Initial Assessment - Program Goals Nutrition Program Goals: LDL <100 optimal. 100 - 129 Near optimal. 130 - 159 Borderline High. 160 - 189 High. Total Cholesterol <200 desirable. 200 - 239 Borderline High. >/= 240 High. HDL < 40 Low >/=60 High. Triglycerides <150 desirable. <199 optimal. VlDL 5 - 40. HgbA1C <7%. BMI <25 Patient has diagnosis of Hyperlipidemia (ICD E78)?: Yes - Visit Date of Assessment:: 06/20/21 - initial eval - Cholesterol/Lipids Determine presence & major risk factors that modify LDL goal: Hypertension or hypertensive medication, Low HDL cholesterol <40 mg/dL*, Family history of premature CHD in Male < 55 years: female <65 yearsFa, Age men > 45 years; women >/= 55 years Outcomes/Goals: Pt IDs own risk factors & lifestyle modifications by Session 10, Verbalizes symptoms of angina & response by session 3., Pt independently manages, Other Additional Outcomes/Goals: Intervention/Plan: Advocate for lipid panel cholesterol medication if applicable, Instruct on personal lipid levels & lipid goals/NCEP guidelines, Instruct on cholesterol, Other additional plan/int Referral to dietitian:: No - Diabetes (Other Core Measures) Diabetes Type: Not Applicable - Weight Mgt (Other Care) Height: 6 ft 1 in Weight:: 101.605 kg BMI: 29.5 Outcomes/Goals: Pt sets, maintains & shows weight loss goal & trend during rehab, Other additional outcomes/goals Intervention/Plan: Instruct on ideal BMI & set weight loss goal w/patient, Assist pt to ID & incorporate diet changes for weight loss by S9, Refer to Structured Weight Loss program as appropriate, Encourage goal of using 250-300dcal per session for weight loss, Other additional plan/interventions - Healthy Eating Habits Will attend diet classes:: Yes Outcomes/Goals:: Consume diet rich in vegs,fruits,whole grain/high fiber,fish,lean meat, Limit sat/trans fats,cholesterol & added salts & sugars, Other additional outcome/goals: Intervention/Plan:: Assess current eating habits, Other Additional plan/interventions - Education Gave educational materials for:: Signs & symptoms of hypoglycemia, Signs & symptoms of hyperglycemia, Relate diabetes to coronary artery disease, Healthy eating Nutrition - 30-Day Assessment Nutrition - 60-Day Assessment Nutrition - 90-Day Assessment Nutrition - Final Assessment Medical - Initial Assessment - Visit Date of Eval: 06/20/21 - initial eval - Medication Compliance Preventative Medication(s):: Aspirin, Statin/lipid, Beta [place] H/O mental health issues: depression, anxiety, or addiction?: No Doesn?t believe in the benefits of treatment?: No Believes medications are unnecessary or harmful?: No Has a concern about medication side effects?: No Expresses concern over the cost of medications?: No Outcomes/Goals: Verbalizes medications,desired effect & common side effects @ DC, Pt self-reports following medication regimen, Keeps card in wallet w/medications listed by DC, Other additional outcome/goals: Interventions/plans: Instruct on medication effects & side effects, Review medication list w/patient every two weeks, Instruct importance of taking meds as ordered & assist problem solving, Other additional - Tobacco Use Tobacco Use: Non-smoker - Hypertension Hypertension Diagnosis:: Hypertension ICD-10 I10 Resting Blood Pressure:: 110/60 [place] [employer] Hypertension Guidelines: [place] [employer] Hypertension Guidelines. Normal BP Less than 120/80. Elevated BP 120/80. Hypertension Stage 1: BP 130-139/80-89. Hypertesnion Stage 2: BP 140 or higher/90 or higher. Hypertension Crisis: BP higher than 180/120 Outcomes/Goals: Able to verbalize/achieve optimal blood pressure <130/80, Incorporates diet changes & exercise for blood pressure control by DC, Other additional outcomes/goals Interventions/plan: Instruct on optimal blood pressure, hypertension & medications, Instruct on effects of sodium, alcohol, stress, exercise &hypertension, Other additional plan/interventions - Tobacco Cessation Referral Smoking Cessation Referral:: No Individual Education/Counseling:: No Education Schedule Given:: Yes Medical- 30-Day Assessment Medical- 60-Day Assessment Medical- 90-Day Assessment Medical - Final Assessment Psychosocial - Initial Assess - VIsit Date of Eval: 06/20/21 - initial eval History of previous Mental disease:: No - Outcomes/Goals: See list Psychosocial Outcomes/Goals:: ID's personal stressors & 2 strategies to manage stress by discharge, Other Additional outcome/goals: - Intervention/Plan: See List Interventions/Plan:: Assess stressors,coping strategies & signs of derpression on admission, Instruct/assist pt to develop coping & personal stress Mgt strategies, Refer to Behavioral Health if appropriate, Refer to Physician if appropriate, Instruct patient to recognize signs & symptoms of depression, Instruct patient to recog, Other additional plan/intervention Psychosocial - 30-Day Assess Psychosocial - 60-Day Assess Psychosocial - 90-Day Assess Psychosocial - Final Assessmen Patient Health Questionnaire Initial Assessment 1. Little interest or pleasure in doing things: Not at all 2. Feeling down, depressed, or hopeless: Not at all 3. Trouble falling or staying asleep, or sleeping too much: Not at all 4. Feeling tired or having little energy: Several days 5. Poor appetite or overeating: Not at all 6. Feeling bad about yourself -- or that you are a failure or have let yourself or your family down: Not at all 7. Trouble concentrating on things, such as reading the newspaper or watching television: Several days 8. Moving or speaking so slowly that other people could have noticed. Or the opposite - being so fidgety or restless that you have been moving around a lot more than usual: Not at all 9. Thoughts that you would be better off , or of hurting yourself in some way: Not at all How difficult have these problems made it for you to do your work, take care of things at home, or get along with other people?: Not difficult at all Total Score: 2 BETH-Q SV Test - Statements CAD is a disease of the arteries in the heart: False Examples of risk factors for heart disease: True Angina is chest pain or discomfort: True The benefits of resistance training include: True Eating more meat and dairy products: False Anti-platelet medications such as aspirin are important: I Don't Know The only effective way to manage stress: False An exercise warm-up slowly increases heart rate: I Don't Know Prepared, processed foods usually have high sodium: True Depression is common after a heart attack: True The statin medications lower cholesterol: True To control blood pressure, lower the amount of sodium: True If someone gets chest discomfort during walking: False Transfats are partially hydrogenated vegetable oils: True Sleep apnea that is not treated increases the risk: False To control cholesterol, one should become a vegetarian: False Someone knows if he/she is exercising at the right level: True Diabetes cannot be prevented with exercise & health eating: False Stress is a large risk for heart attack: I Don't Know A diet that can help lower blood pressure is rich in: True - Total Score Total Correct Responses: 17 Self-Efficacy Initial Assessment We would like to know how confident you are in doing certain activities. Please select your confidence level for:: Select your confidence level for the following using the scale 1-10 where 1 is not at all confident and 10 is totally confident. Your score is the average of all 6 responses. Fatigue: How confident are you that you can keep the fatigue caused by your disease from interfering with the things you want to do? Select Number: 8 Physical Discomfort or Pain: How confident are you that you can keep the physical discomfort or pain of your disease from interfering with the things you want to do? Select Number: 7 Emotional Distress: How confident are you that you can keep the emotional distress caused by your disease from interfering with the things you want to do? Select Number: 9 Other Symptoms or Health Problems: How confident are you that you can keep other symptoms or health problems from interfering with the things you want to do? Select Number: 8 Different Tasks and Activities: How confident are you that you can do the different tasks and activities needed to manage your health condition so as to reduce your need to see a doctor? Select Number: 9 Medication: How confident are you that you can do things other than just taking medication to reduce how much your illness affects your everyday life? Select Number: 9 Total Score:: 8 Nutrition Survey - Nutrition Survey Initial Have you lost >10 lbs over the past 2 months without trying?: Yes Are you following a special diet at home for diabetes, low fat, or low salt?: No Are you interested in meeting with a dietitian for help understanding your diet?: No Do you eat less than 3 meals a day?: Yes Do you eat fatty meats (nicholas, sausage, ribs, etc), fried foods, desserts, large amounts of salad dressings, margarine, butter, or cheese most days?: Yes Do you have food allergies? [Enter types in comment field]: No Do you eat in restaurants more than 3 times a week?: No Do you season food with salt, seasoning salt, or garlic salt?: Yes Do you used canned, boxed, frozen meals, or soups, seasoning packets?: Yes Total Score:: 5
[2021-06-20 14:55] VITALS: BP 110/60; PULSE 59; O2SAT 97; BMI 29.5
== END | disposition home or self-care (01) ==
LOC: CR 13:59
PROVIDERS: PCP Family Medicine; Referring Provider Internal Medicine Cardiovascular Disease; Visit Provider Internal Medicine Cardiovascular Disease
DX: I25.10 Atherosclerotic heart disease of native coronary artery without angina pectoris (principal); I25.2 Old myocardial infarction; I10 Essential (primary) hypertension

== ENCOUNTER 2021-07-13 13:49 | Emergency (ER) | payer OTHER, SELFPAY ==
[2021-06-20 14:55] VITALS: BMI 29.5
[2021-07-13] VITALS (7 sets, daily range): BP systolic 123–173; BP diastolic 76–94; PULSE 58–77; RESP 10–24; TEMP 36.2; O2SAT 95–99; BMI 29.6
--- NOTE | 2021-07-13 14:28 | EKG12_ITS ---
Test Reason : CP Blood Pressure : / mmHG Vent. Rate : 069 BPM Atrial Rate : 069 BPM P-R Int : 236 ms QRS Dur : 100 ms QT Int : 392 ms P-R-T Axes : 064 016 107 degrees QTc Int : 420 ms Sinus rhythm with 1st degree A-V block ST & T wave abnormality, consider lateral ischemia Abnormal ECG Confirmed by OZZIE NOWAK, ENMA ([id number]), primer expeditor and drier JOSE CHA ([id number]) on 07/15/2021 11:01:44 A M Referred By: Confirmed By:MAGALIS HORNE MD
--- NOTE | 2021-07-13 14:28 | RAD_ITS ---
STUDY: X-RAY CHEST REASON FOR EXAM: Male, 61 years old. Chest pain TECHNIQUE: Single AP portable view of the chest. COMPARISON: Comparison is made with prior study dated 02/27/2021. FINDINGS: EKG electrodes are seen. The lungs are clear and expanded. There is no demonstrated pleural abnormality. There is mild cardiac enlargement. Normal mediastinum and gurdeep. Normal visualized pulmonary arteries. Normal visualized aortic arch and descending thoracic aorta. Normal visualized thoracic spine. Normal visualized ribs, clavicles, and shoulders. There is no demonstrated abnormality of the visualized soft tissue structures of the upper abdomen. RAD/Chest 1 View (Portable) IMPRESSION: No acute abnormality is seen. Mild cardiomegaly. Electronically Signed: Kyler Palomares MD at 14:52 EDT ,
[2021-07-13 14:35] LABS: Absolute Lymphocyte Count 1.71 X10^3/uL (0.83-4.51); Absolute Neutrophil Count 5.7 X10^3/uL (2.0-7.7); Basophil# 0.04 X10^3/uL; Basophil% 0.5 % (0-1); Eosinophil# 0.26 X10^3/uL; Eosinophils% 3.2 % (0-5); Hematocrit 42.7 % (40-54); Hemoglobin 14.1 g/dL (13.0-16.5); Lymphocyte # 1.71 X10^3/ul (0.83-4.51); Lymphocyte % 20.8 % (19-41); Mean Corpuscular Volume 87.9 fL (80-94); Mean Platelet Vol. 11.2 fl (6.2-12.0); Monocyte# 0.51 X10^3/uL; Monocyte% 6.2 % (0-10); NRBC Flagged by Analyzer 0 % (0-5); Neutrophil # 5.69 X10^3/uL (2.7-7.7); Neutrophil % 68.9 % (47-70); Platelet Count 193 K/mm3 (150-450); RBC Distribution Width CV 13.7 % (11.6-14.6); RBC Distribution Width SD 44.2 fl (35.1-43.9); Red Blood Count 4.86 M/mm3 (4.6-6.2); White Blood Count 8.2 K/mm3 (4.4-11.0)
[2021-07-13] MEDS: Aspirin 81 MG TAB.CHEW 324 MG PO (14:37)
[2021-07-13 14:57] LABS: Anion Gap 7 (5-15); BUN 18 mg/dL (7-18); BUN/Creat Ratio 17.8 RATIO (10-20); Calcium,Total 8.9 mg/dL (8.5-10.1); Chloride 103 mmol/L (98-107); Creatinine, Serum 1.01 mg/dL (0.70-1.30); EST Glomerular Filtration Rate 80 mL/min (>60); Est Glom Filt Rate - Afr Amer 97 mL/min (>60); Glucose 118 mg/dL (74-106); Lipase 116 U/L (73-393); Potassium 3.7 mmol/L (3.5-5.1); Sodium Level 137 mmol/L (136-145); Troponin-I HS (w/2H Reflex) 47 pg/mL (3.0-78.0)
[2021-07-13 15:01] LABS: AST(SGOT) 22 U/L (15-37); Alanine Aminotransfer ALT/SGPT 32 U/L (16-61); Albumin, Serum 3.7 g/dL (3.2-5.0); Alkaline Phosphatase 84 U/L (45-117); Bilirubin, Direct 0.07 mg/dL (0.00-0.30); Globulin 3.3 g/dL (2.2-4.2)
--- NOTE | 2021-07-13 15:16 | EDS_ITS ---
HPI History of Present Illness Chief Complaint: Chest Pain Detail of Chief Complaint: Chest pain that was different than recent IN Informant: patient Onset/Context/Timing Onset: Hours Activity at onset: rest Timing: Intermittent and Lasts (Duration was 1 to 2 minutes) Quality: Positive for Pain Location: Substernal Current Severity: Gone Maximum Severity: Mild Worsened By: Nothing Relieved By: Nothing Associated Symptoms: Positive for Lightheadedness; Negative for Nausea, Vomiting, Diaphoresis, Dyspnea, Cough, Fever, Acid Reflux and Palpitations Narrative Narrative: Patient is a 61-year-old male with history of non-ST elevation IN, hypercholesterolemia and essential hypertension who presents because of chest discomfort that occurred while sitting in his car. He went to cardiac rehab this morning for 30 minutes and had no chest discomfort with exertion. He states that he saw something on the monitor. We will need to speak with Dr. Mackey his lunchroom food service supervisor determine what that may have been. Presently the patient experiences no pain. He is no longer lightheaded. Duration of his symptoms are 1 to 2 minutes. He denies black or maroon-colored stool. Denies history of PE or DVT. Denies leg pain, swelling discoloration. Prior Similar Symptoms: No Recent Illness/Hospitalization: Yes CVD Risk Factors: Positive for Hypertension and Hypercholesterolemia; Negative for Smoking PE Risk Factors: Negative for Recent Travel/Surgery, Recent Immobilization, Prior DVT or PE, Cancer and OCP + Smoking + >/=35 TAD Risk Factors: Positive for Hypertension; Negative for Marfan's Syndrome and Family History PFSH [facility] Medical History Abnormal EKG Atherosclerotic heart disease of [place] coronary artery without angina pectoris Essential hypertension Family history of coronary artery disease High cholesterol History of left heart catheterization (LHC) (~05/30/21) Hyperlipemia Hypoxia Non-ST elevation (NSTEMI) myocardial infarction Pneumonia due to COVID-19 virus Psoriasis Pure hypercholesterolemia Wound of right lower extremity Home Medications cholecalciferol (vitamin D3) [Vitamin D3] 1,000 unit PO DAILY 04/28/15 [History Last Taken 02/27/21 10:00] aspirin 81 mg tablet,delayed release 81 mg PO DAILY 06/01/21 [History Last Taken Unknown] atorvastatin 40 mg tablet 40 mg PO QHS 06/01/21 [History Last Taken Unknown] hydrochlorothiazide 25 mg tablet 25 mg PO DAILY 06/01/21 [History Last Taken Unknown] coenzyme Q10 100 mg tablet 100 mg PO DAILY 06/03/21 [History Last Taken Unknown] lisinopril 10 mg tablet 10 mg PO BID #60 tab 06/03/21 [Rx Last Taken Unknown] zinc 50 mg tablet 50 mg PO DAILY 06/03/21 [History Last Taken Unknown] carvedilol 25 mg tablet 25 mg PO BID #180 tab 06/13/21 [Rx Last Taken Unknown] Allergy/AdvReac Type Severity Reaction Status Date / Time No Known Allergies Allergy Verified 07/13/21 13:49 Family History Mother Heart disease Father Heart disease Social History (Updated 07/13/21 @ 15:[address] Dhruv Spence MD) household members: spouse Smoking Status: Never smoker alcohol intake: current substance use type: does not use caffeine: Yes Type: carbonated beverages ROS ROS ED Constitutional Constitutional ED: Denies chills, fever(s), subjective, sweats or weight loss Eyes Eyes: Reports none ENT ENT ED: Denies ear pain, rhinorrhea or sore throat Cardiovascular Cardiovascular: Reports as per HPI; Denies orthopnea or paroxysmal nocturnal dyspnea Respiratory/Chest Respiratory/Chest: Denies cough, dyspnea, dyspnea on exertion, orthopnea or paroxysmal nocturnal dyspnea Gastrointestinal Gastrointestinal: Denies abdominal pain, constipation, nausea or vomiting Genitourinary Genitourinary ED: Denies dysuria, hematuria or urinary frequency Musculoskeletal Musculoskeletal: Denies arthralgias, myalgias or neck pain Integumentary Denies rash Neurologic Neurologic: Denies headache(s), paresthesias or weakness Psychiatric Psychiatric: Reports anxiety; Denies depression Endocrine Endocrinology: Denies polydipsia, polyphagia or polyuria Hematologic/Lymphatic Hematologic/Lymphatic: Reports other Details: He denies history of anemia. ; Denies easy bleeding or easy bruising EXAM Physical Exam Const Vital Signs: 07/13/21 13:50 07/13/21 13:59 07/13/21 14:32 Temperature 97.1 F L Temperature Source Temporal Pulse Rate 77 66 Respiratory Rate 16 18 Respiratory Effort Normal Blood Pressure 173/88 H 128/94 H Blood Pressure Mean 116 105 Pulse Ox 97 99 Oxygen Delivery Method Room Air Room Air Room Air 07/13/21 15:19 07/13/21 16:06 07/13/21 17:31 Temperature Temperature Source Pulse Rate 60 60 58 L Respiratory Rate 10 L 16 24 H Respiratory Effort Blood Pressure 139/76 H 145/86 H 123/85 H Blood Pressure Mean 97 105 97 Pulse Ox 97 98 96 Oxygen Delivery Method Room Air Room Air Room Air 07/13/21 18:48 07/13/21 19:46 Temperature Temperature Source Pulse Rate 68 65 Respiratory Rate 11 L 15 Respiratory Effort Blood Pressure 157/85 H 164/84 H Blood Pressure Mean 109 110 Pulse Ox 96 95 Oxygen Delivery Method Room Air Room Air Positive well nourished and well developed General Appearance ED: well developed and NAD; Negative for pallor HEENT Reports TM's clear and moist mucous membranes normocephalic and atraumatic Tympanic Membrane ED: Yes TM's clear Eyes PERRL and EOMs intact bilaterally General Eye ED: Negative for pale conjunctiva or scleral icterus Neck no lymphadenopathy, supple and no JVD Chest Wall inspection of chest normal and palpation of chest normal Resp normal respiratory effort and No clear to auscultation bilaterally Effort and Inspection: respiratory distress Cardio regular rate, regular rhythm, S1 normal heart sound and S2 normal heart sound GI normal to inspection, nondistended, normoactive bowel sounds, soft to palpation and non-tender Back/Spine no CVA tenderness and no thoracic nor lumbar tenderness Cervical Spine: Negative for cervical spine tenderness Extremity normal to inspection General Extremety ED: Negative for edema, pulses abnormal or tenderness General Extremity: Negative for edema or pulses abnormal Neuro oriented x3, CN's II-XII intact bilaterally and no sensory deficits noted Sensorium / Orientation: awake and alert Motor Exam: strength 5/5 throughout Psych mental status grossly normal Skin no rashes or lesions noted and no wounds General Skin Exam: Negative for jaundice or pallor Heart Score History: Slightly/Non-Suspicious ECG: Nonspecific Repolarization Age: >45 - <65 years Risk Factors: >/= 3 Risk Factors or History of CAD Score: 4 MDM MDM MDM Narrative Medical decision making narrative: Patient is a 61-year-old male with multiple risk factors of coronary disease and recent non-ST elevation IN who presents with atypical chest pain that lasted 1 to 2 minutes. Chest pain order set was i nitiated. Need to rule out cardiac versus noncardiac etiology. EKG reveals a sinus rhythm with first-degree block V-block. This is unchanged from prior. Patient's first troponin is elevated a 2-hour was ordered. Hepatic enzymes and lipase were ordered because he admits to having 6+ drinks yesterday because it was his birthday. Lab Data Attestation: I reviewed the patient's lab results. Lab results narrative: Troponins normal. Delta is less than 7. Will discharge to home. Labs: Laboratory Results - last 24 hr 07/13/21 07/13/21 07/13/21 14:12 14:12 14:12 WBC 8.2 RBC 4.86 Hgb 14.1 Hct 42.7 MCV 87.9 MCH 29.0 MCHC 33.0 RDW Std Deviation 44.2 H RDW Coeff of Shonda 13.7 Plt Count 193 MPV 11.2 Immature Gran % (Auto) 0.400 Neut % (Auto) 68.9 Lymph % (Auto) 20.8 Williams % (Auto) 6.2 Eos % (Auto) 3.2 Baso % (Auto) 0.5 Absolute Neuts (auto) 5.7 Absolute Lymphs (auto) 1.71 Nucleated RBC % 0 Sodium 137 Potassium 3.7 Chloride 103 Carbon Dioxide 27.0 Anion Gap 7 BUN 18 Creatinine 1.01 Estim Creat Clear Calc 87.90 Est GFR (MDRD) Af Amer 97 Est GFR (MDRD) Non-Af 80 BUN/Creatinine Ratio 17.8 Glucose 118 H Calcium 8.9 Total Bilirubin 0.30 Direct Bilirubin 0.07 AST 22 ALT 32 Alkaline Phosphatase 84 Troponin I High Sens 47 Total Protein 7.0 Albumin 3.7 Globulin 3.3 Lipase 116 07/13/21 16:35 WBC RBC Hgb Hct MCV MCH MCHC RDW Std Deviation RDW Coeff of Shonda Plt Count MPV Immature Gran % (Auto) Neut % (Auto) Lymph % (Auto) Williams % (Auto) Eos % (Auto) Baso % (Auto) Absolute Neuts (auto) Absolute Lymphs (auto) Nucleated RBC % Sodium Potassium Chloride Carbon Dioxide Anion Gap BUN Creatinine Estim Creat Clear Calc Est GFR (MDRD) Af Amer Est GFR (MDRD) Non-Af BUN/Creatinine Ratio Glucose Calcium Total Bilirubin Direct Bilirubin AST ALT Alkaline Phosphatase Troponin I High Sens 50 Total Protein Albumin Globulin Lipase Radiography Chest X-Ray - ED: 1 View (Single view portable chest x-ray reveals cardiomegaly. Lung parenchyma is unremarkable. Perihilar regions unremarkable. [place] structures are unremarkable. This was independently reviewed and interpreted by me.) Diagnostic Testing: Clinical Impression(s) from Imaging Studies Chest X-Ray 07/13/21 14:28 IMPRESSION: No acute abnormality is seen. Mild cardiomegaly. Electronically Signed: Kyler Palomares MD at 14:52 EDT , EKG Initial EKG: Attestation: I personally reviewed and interpreted this EKG as follows: Interpretation: Sinus Rhythm (Ventricular rate 69. There is a first- degree AV block. NC interval is 236 ms. Cures duration 100 ms. QT duration is 392 ms. [place] is normal. The nonspecific changes were noted on EKG that was obtained February 27, 2021.) Discharge Plan Triage Chief Complaint: Chest Pain ED Provider: Dhruv Spence Dx/Rx/DC Orders Clinical Impression: Central chest pain, Pure hypercholesterolemia, Atherosclerotic heart disease of [place] coronary artery without angina pectoris, Essential hypertension Instructions: ED Chest Pain, Noncardiac, ED Chest Pain, Uncertain Cause Prescriptions: No Action coenzyme Q10 100 mg tablet 100 mg PO DAILY RF: 0 zinc 50 mg tablet 50 mg PO DAILY RF: 0 lisinopril 10 mg tablet 10 mg PO BID Qty: 60 RF: 6 cholecalciferol (vitamin D3) [Vitamin D3] 1,000 UNIT tablet 1,000 unit PO DAILY RF: 0 atorvastatin 40 mg tablet 40 mg PO QHS RF: 0 hydrochlorothiazide 25 mg tablet 25 mg PO DAILY RF: 0 aspirin [Adult Aspirin Regimen] 81 mg tablet,delayed release (DR/EC) 81 mg PO DAILY RF: 0 carvedilol 25 mg tablet 25 mg PO BID Qty: 180 RF: 3 Primary Care Provider: Orestes Hinds Referrals: Orestes Hinds [Primary Care Provider] - 3-5 Days Disposition Disposition: Home, Self Care
[2021-07-13 16:32] LABS: Reflex Troponin-HS? (from REC) Y
[2021-07-13 17:08] LABS: Troponin-I HS 50 pg/mL (3.0-78.0)
== END 2021-07-13 19:59 | disposition home or self-care (01) ==
PROVIDERS: Emergency Provider Emergency Medicine; PCP Family Medicine; Visit Provider Emergency Medicine
DX: R07.89 Other chest pain (principal); I25.10 Atherosclerotic heart disease of native coronary artery without angina pectoris; I25.2 Old myocardial infarction; I10 Essential (primary) hypertension; E78.00 Pure hypercholesterolemia, unspecified; Z79.82 Long term (current) use of aspirin; Z79.899 Other long term (current) drug therapy; Z86.16 Personal history of COVID-19
CPT/HCPCS: 71045; 80048; 80076; 83690; 84484; 85025; 93005; 99283; A4216

== ENCOUNTER 2021-07-22 08:00 | Outpatient (RCR) | payer OTHER, SELFPAY ==
[2021-06-20 14:55] VITALS: BMI 29.5
--- NOTE | 2021-07-20 08:04 | CR.ITP_ITS ---
Diagnosis Exercise - 30-day Assessment - Visit Date of Eval: 07/20/21 Session #:: 11 - Physician Prescribed Exercise Modalities: Treadmill, Rower, Airdyne Frequency: 3x/week for 12 weeks [36 sessions] Intensity: 60-80% of age predicted maximum heart rate reserve Current METSs:: 6.5 Target Heart Rate:: 105-136 Current RPE:: 11-14 Maximum Excercise HR:: 113 Resting Blood Pressure: 124/64 Maximum Exercise Blood Pressure: 138/78 EKG Type: SB to sinus tach ST depression. Rare PACs & PVCs. [facility] called. Current Physical Activity or Exercising minutes: 44:16 - Outcomes & Goals Goals:: Verbalizes understanding of THR, RPE & goal METS by session 6, Documents in home exercise log/reports 30 min aerobic 5 day/wk by DC, Demonstrates accurate pulse taking by DC - Intervention & Plan Exercise Program Goals: Instruct on personal THR & RPE, Instruct on MET level & personal MET goal, Show patient to take own pulse /validate performance until accurate, Instruct on home exercise - 30-day Reassessments 30 day Reassessments:: Progressing Reassessment Notes & Comments:: Patient's exercise intensity decreased since developed ST depression & T Wave inversion. Patient has been waiting to be called for a stress test per Dr. Mackey. 07/20/2021 Patient reports pressure in chest when taking a deep breath, but subsides after a few minutes. He was instructed to notify Dr. Mackey's office. A copy of Daily session reports have been provided for Dr. Mackey. - Physical Activity Home Exercise Physical Activity - Home Exercise: Safe Exercise, Warm-up, Self-monitoring, Cool-Down, Home Exercise > 30 min Daily, Sitting Time <3 hours/daily - Outcomes & Goals Outcomes/Goals: Demonstrates correct Warm-up/exercise Cool-Down (S3) if = 2.5 METs, Verbalizes symptoms of exercise intolerance by Session 3 (S3), Demonstrate safe equipment use (S3) & follows exercise prescrition (6) - Intervention & Plan Plan/Intervention: Instruct warm-up & cool-down if exercising at > 2 METs, Instruct on symptoms of exercise intolerance & actions to take, Instruct & monitor on saf, Assess intial functional capacity & safety risk - 30-day Reassessments 30 day Reassessments:: Progressing Nutrition - Initial Assessment Nutrition - 30-Day Assessment - Program Goals Nutrition Program Goals: LDL <100 optimal. 100 - 129 Near optimal. 130 - 159 Borderline High. 160 - 189 High. Total Cholesterol <200 desirable. 200 - 239 Borderline High. >/= 240 High. HDL < 40 Low >/=60 High. Triglycerides <150 desirable. <199 optimal. VlDL 5 - 40. HgbA1C <7%. BMI <25 Patient has diagnosis of Hyperlipidemia (ICD E78)?: Yes - Visit Date of Assessment:: 07/20/21 Session #:: 11 - Cholesterol/Lipids Triglycerides (mg/dL): 92 - 05/28/2020; patient is past due for annual Lipid Panel. Total Cholesterol (mg/dL): 178 LDL Cholesterol (mg/dL): 122 HDL Cholesterol (mg/dL): 38 Determine presence & major risk factors that modify LDL goal: Hypertension or hypertensive medication, Low HDL cholesterol <40 mg/dL*, Family history of premature CHD in Male < 55 years: female <65 yearsFa, Age men > 45 years; women >/= 55 years Outcomes/Goals: Pt IDs own risk factors & lifestyle modifications by Session 10, Verbalizes symptoms of angina & response by session 3., Pt independently manages Intervention/Plan: Instruct on personal lipid levels & lipid goals/NCEP guidelines, Instruct on cholesterol Referral to dietitian:: Yes - Medical Nutrition Therapy 30-day Reassessments:: Progressing - Diabetes (Other Core Measures) Diabetes Type: Not Applicable - Weight Mgt (Other Care) Not Applicable: Yes Height: 6 ft 1 in Weight:: 223 lb 8 oz - Over weight BMI: 29.5 Diagnosis Overweight/Obesity BMI> 30% ICD-10 E66: No Diagnosis High BMI/Morbid Obesity BMI> 35% ICD-10 Z68: No Outcomes/Goals: Pt sets, maintains & shows weight loss goal & trend during rehab Intervention/Plan: Instruct on ideal BMI & set weight loss goal w/patient, Assist pt to ID & incorporate diet changes for weight loss by S9, Encourage goal of using 250-300dcal per session for weight loss - Healthy Eating Habits Will attend diet classes:: Yes Outcomes/Goals:: Consume diet rich in vegs,fruits,whole grain/high fiber,fish,lean meat, Limit sat/trans fats,cholesterol & added salts & sugars Intervention/Plan:: Assess current eating habits 30-day Reassessments:: Progressing - Education Gave educational materials for:: Healthy eating Nutrition - 60-Day Assessment Nutrition - 90-Day Assessment Nutrition - Final Assessment Medical - Initial Assessment Medical- 30-Day Assessment - Visit Date of Eval: 07/20/21 Session #:: 11 - Medication Compliance Preventative Medication(s):: Aspirin, Statin/lipid, Beta [place] H/O mental health issues: depression, anxiety, or addiction?: No Doesn?t believe in the benefits of treatment?: No Believes medications are unnecessary or harmful?: No Has a concern about medication side effects?: No Expresses concern over the cost of medications?: No Outcomes/Goals: Verbalizes medications,desired effect & common side effects @ DC, Pt self-reports following medication regimen, Keeps card in wallet w/ medications listed by DC Interventions/plans: Instruct on medication effects & side effects, Review medication list w/patient every two weeks, Instruct importance of taking meds as ordered & assist problem solving 30-day Reassessments:: Met - Tobacco Use Tobacco Use: Non-smoker - Hypertension Hypertension Diagnosis:: Hypertension ICD-10 I10 Resting Blood Pressure:: 124/64 [place] [employer] Hypertension Guidelines: [place] [employer] Hypertension Guidelines. Normal BP Less than 120/80. Elevated BP 120/80. Hypertension Stage 1: BP 130-139/80-89. Hypertesnion Stage 2: BP 140 or higher/90 or higher. Hypertension Crisis: BP higher than 180/120 Peak Exercise Blood Pressure:: 138/78 Outcomes/Goals: Able to verbalize/achieve optimal blood pressure <130/80, Incorporates diet changes & exercise for blood pressure control by DC Interventions/plan: Instruct on optimal blood pressure, hypertension & medications, Instruct on effects of sodium, alcohol, stress, exercise &hypertension 30 day Reassessments:: Progressing - Tobacco Cessation Referral Smoking Cessation Referral:: No Individual Education/Counseling:: No Education Schedule Given:: Yes Medical- 60-Day Assessment Medical- 90-Day Assessment Medical - Final Assessment Psychosocial - Initial Assess Psychosocial - 30-Day Assess - VIsit Date of Eval: 07/20/21 Session #:: 11 Not Applicable: Yes History of previous Mental disease:: No - Psychosocial Test Tool Used:: PHQ-9 Questionnaire phq-9 Severity: Severity. 1-4 Minimal Depression. 5-9 Mild Depression. 10-14 Moderate Depression. 15-19 Moderately Sever Depression. 20-27 Severe Depression. Rule: - Referral to Behavioral Health PS - Interventions: Yes Attend Stress Management Classes, No Referral to Behavioral Health if PHQ-9 score >9:, No Referral to [facility] Community Care [facility], No Referral to Physician if PHQ-9 if score is 5-9: - Outcomes/Goals: See list Psychosocial Outcomes/Goals:: ID's personal stressors & 2 strategies to manage stress by discharge - Intervention/Plan: See List Interventions/Plan:: Assess stressors,coping strategies & signs of derpression on admission, Instruct/assist pt to develop coping & personal stress Mgt strategies, Instruct patient to recognize signs & symptoms of depression, Instruct patient to recog - 30-day Reassessments: 30 day Reassessments:: Progressing Psychosocial - 60-Day Assess Psychosocial - 90-Day Assess Psychosocial - Final Assessmen Patient Health Questionnaire 30-Day Re-eval Assessment 1. Little interest or pleasure in doing things: Not at all 2. Feeling down, depressed, or hopeless: Not at all 3. Trouble falling or staying asleep, or sleeping too much: Not at all 4. Feeling tired or having little energy: Several days 5. Poor appetite or overeating: Not at all 6. Feeling bad about yourself -- or that you are a failure or have let yourself or your family down: Not at all 7. Trouble concentrating on things, such as reading the newspaper or watching television: Several days 8. Moving or speaking so slowly that other people could have noticed. Or the opposite - being so fidgety or restless that you have been moving around a lot more than usual: Not at all 9. Thoughts that you would be better off , or of hurting yourself in some way: Not at all How difficult have these problems made it for you to do your work, take care of things at home, or get along with other people?: Not difficult at all Total Score: 2 Self-Efficacy 30-Day Re-eval Assessment We would like to know how confident you are in doing certain activities. Please select your confidence level for:: Select your confidence level for the following using the scale 1-10 where 1 is not at all confident and 10 is totally confident. Your score is the average of all 6 responses. Fatigue: How confident are you that you can keep the fatigue caused by your disease from interfering with the things you want to do? Select Number: 9 Physical Discomfort or Pain: How confident are you that you can keep the physical discomfort or pain of your disease from interfering with the things you want to do? Select Number: 9 Emotional Distress: How confident are you that you can keep the emotional distress caused by your disease from interfering with the things you want to do? Select Number: 9 Other Symptoms or Health Problems: How confident are you that you can keep other symptoms or health problems from interfering with the things you want to do? Select Number: 9 Different Tasks and Activities: How confident are you that you can do the different tasks and activities needed to manage your health condition so as to reduce your need to see a doctor? Select Number: 9 Medication: How confident are you that you can do things other than just taking medication to reduce how much your illness affects your everyday life? Select Number: 9 Total Score:: 9 Nutrition Survey
[2021-07-20 08:17] VITALS: BP 124/64; BP 138/78; BMI 29.5
== END 2021-07-26 23:59 ==
LOC: CR 08:00
PROVIDERS: PCP Family Medicine; Referring Provider Internal Medicine Cardiovascular Disease; Visit Provider Internal Medicine Cardiovascular Disease
DX: I10 Essential (primary) hypertension (principal); I25.10 Atherosclerotic heart disease of native coronary artery without angina pectoris; I25.2 Old myocardial infarction; E78.00 Pure hypercholesterolemia, unspecified
CPT/HCPCS: 93798

== ENCOUNTER → 2021-08-11 | Outpatient (CLI) | payer OTHER, SELFPAY ==
[2021-06-20 14:55] VITALS: BMI 29.5
[2021-07-20 08:17] VITALS: BMI 29.5
--- NOTE | 2021-08-11 06:41 | ECHOD_ITS ---
Reason For Study: Abn EKG Procedure This was a 2D Doppler, Color Flow transthoracic echocardiogram. The exam was of adequate technical quality. Exam performed in department. Left Ventricle Normal LV size. Mild segmental systolic dysfunction (see wall motion). The estimated ejection fraction is 50 %. There is evidence of diastolic dysfunction. Infero-Basal: Hypokinetic. Mid- inferoseptal : Hypokinetic. Right Ventricle Normal RV size. Normal systolic function. Atria The left atrium is mildly enlarged. Normal right atrium. No doppler evidence for ASD. Mitral Valve There is no mitral annular calcification. Normal mitral valve. Mild (1+) mitral valve insufficiency. Tricuspid Valve Normal tricuspid valve. Mild tricuspid valve insufficiency. Right ventricular systolic pressure estimated to be 38 mmHg. Aortic Valve Trisinus/trileaflet aortic valve. Normal aortic valve. Trivial aortic valve insufficiency. Pulmonic Valve The pulmonic valve is not well visualized. Trivial pulmonic valve insufficiency. Great Vessels Normal sized aortic root. Pericardium/Pleural No pericardial effusion. MMode/2D Measurements & Calculations LVIDd: 5.2 cm IVSd: 1.5 cm Ao root diam: 3.2 cm LVIDs: 3.6 cm LVPWd: 1.1 cm RVDd: 4.1 cm FS: 29.5 % LAV(MOD-bp): 106.0 ml LVAd ap4: 31.9 cm2 LVAd ap2: 32.2 cm2 LAV(MOD-bp) Indexed: 47.6 ml/m2 LVLd ap4: 8.6 cm LVLd ap2: 8.0 cm LAV(MOD-sp2): 89.8 ml EDV(MOD-sp4): 97.1 ml EDV(MOD-sp2): 107.2 ml LAV(MOD-sp4): 117.1 ml EDV(sp4-el): 100.2 ml EDV(sp2-el): 109.8 ml LVAs ap4: 21.9 cm2 LVAs ap2: 24.0 cm2 LVLs ap4: 7.5 cm LVLs ap2: 7.3 cm ESV(MOD-sp4): 54.7 ml ESV(MOD-sp2): 65.6 ml ESV(sp4-el): 54.5 ml ESV(sp2-el): 67.0 ml EF(MOD-sp4): 43.7 % EF(MOD-sp2): 38.8 % EF(sp4-el): 45.6 % SV(MOD-sp4): 42.4 ml SV(MOD-sp2): 41.5 ml SV(sp4-el): 45.7 ml LA dimension(2D): 5.4 cm LA A4 area: 29.8 cm2 RA A4 area: 15.9 cm2 Doppler Measurements & Calculations MV E max naveed: 77.5 cm/sec Lat Peak E' Naveed: 5.4 cm/sec Med Peak E' Naveed: 3.6 cm/sec MV A max naveed: 38.6 cm/sec E/E' lat: 14.4 E/E' med: 21.8 MV E/A: 2.0 Ao V2 max: 104.7 cm/sec AI max naveed: 378.0 cm/sec LV V1 max: 100.7 cm/sec Ao max P.4 mmHg AI max P.2 mmHg LV V1 max P.1 mmHg AI dec slope: 187.1 cm/sec2 AI P1/2t: 591.8 msec PA V2 max: 91.3 cm/sec TR max naveed: 294.7 cm/sec TR max P.8 mmHg ECHO/Echo Complete Interpretation Summary Mild segmental systolic dysfunction (see wall motion). The estimated ejection fraction is 50 %. The left atrium is mildly enlarged. Mild (1+) mitral valve insufficiency. Mild tricuspid valve insufficiency. Trivial aortic valve insufficiency. Trivial pulmonic valve insufficiency. Right ventricular systolic pressure estimated to be 38 mmHg. There is evidence of diastolic dysfunction. Ordering Physician: Orestes Mackey Referring Physician: Orestes Hinds Performed By: Andie Wang RDCS
--- NOTE | 2021-08-11 13:20 | STRESSREP_ITS ---
Stress Test Report Date: Procedure: Exercise tolerance test/imaging study Indications: Chest pain; CAD; non-ST segment elevation MT Consent: Per the patient Procedure: The patient exercised on a Gaurav protocol for 8 minutes completing Stage II and 2 minutes of Stage III achieving a peak heart rate of 133 bpm (83% predicted maximal heart rate) with a peak blood pressure 160/72 mmHg and a peak MET capacity of 10 METs. The baseline ECG demonstrated sinus bradycardia; nonspecific ST segment abnormality. The peak exercise ECG demonstrated continued sinus rhythm with continued ST segment abnormality appearing more prominent (an additional 1 to [address] segment depression-horizontal) compared to baseline with gradual resolution towards baseline in recovery. There were no cardiac dysrhythmias pretest, during exercise, or recovery. The functional capacity was considered good. There was no complaint of chest discomfort during exercise or recovery. The examination was discontinued secondary to dyspnea. Impression: 1. Technically adequate (percent predicted maximal heart rate greater than 85%) exercise tolerance test 2. Peak exercise ECG with continued sinus rhythm with continued ST segment abnormality appearing more prominent (an additional 1 [address] segment depression-horizontal) compared to baseline with gradual resolution towards baseline in recovery 3. There were no cardiac dysrhythmias pretest, during exercise, or recovery 4. Nuclear images pending Myocardial perfusion imaging study: Technique: The patient was injected with 14.7 mCi of technetium 99m Cardiolite and subsequently rest SPECT Cardiolite nuclear imaging was obtained in the horizontal long, vertical long, and short axis views. The patient exercised on a Gaurav protocol for 8 minutes completing Stage II and 2 minutes of Stage III achieving a peak heart rate of 133 bpm (83% predicted maximal heart rate) with a peak blood pressure 160/72 mmHg and a peak MET capacity of 10 METs. The patient was injected with 44.3 mCi of technetium 99m Cardiolite and subsequently stress SPECT Cardiolite nuclear imaging was obtained in the horizontal long, vertical long, and short axis views. A gated Cardiolite study at peak stress was obtained. Interpretation: Rest and stress SPECT Cardiolite nuclear imaging status post realignment, normalization, and attenuation correction, demonstrates the appearance body motion during image acquisition at rest of an element of diminished tracer uptake in portions of the distal inferior segments and status post stress the appearance of diminished myocardial perfusion/tracer uptake in portions of the mid towards distal anterior segments as well as the mid inferior segments. There is end systolic thickening and brightening. The gated Cardiolite study demonstrates myocardial thickening and inward wall motion. The reported LVEF is 53%. Impression: 1. Rest and stress SPECT Cardiolite nuclear imaging demonstrate myocardial perfusion changes concerning for areas of stress-induced myocardial ischemia in portions of the mid towards distal anterior segments as well as the mid inferior segments, however, based upon the appearance of body motion during image acquisition an element of shifting soft tissue attenuation/artifact cannot necessarily be excluded. 2. The gated Cardiolite study reports an LVEF of 53%. This note was generated with [employer] software. It may contain incorrect words, spelling, and punctuation that were not noted in checking the note before signing.
== END | disposition home or self-care (01) ==
LOC: CVS 06:38
PROVIDERS: PCP Family Medicine; Visit Provider Internal Medicine Cardiovascular Disease
DX: I25.10 Atherosclerotic heart disease of native coronary artery without angina pectoris (principal); I25.2 Old myocardial infarction; R94.31 Abnormal electrocardiogram [ECG] [EKG]; R07.1 Chest pain on breathing; Z98.890 Other specified postprocedural states
CPT/HCPCS: 78452; 93017; 93306; A9500; A4216

== ENCOUNTER 2021-08-15 08:43 | Outpatient (RCR) | payer OTHER, SELFPAY ==
[2021-07-20 08:17] VITALS: BMI 29.5
== END 2021-08-25 23:59 ==
LOC: NS 08:43
PROVIDERS: PCP Family Medicine; Referring Provider Internal Medicine Cardiovascular Disease; Visit Provider Internal Medicine Cardiovascular Disease
DX: Z71.3 Dietary counseling and surveillance (principal); E78.00 Pure hypercholesterolemia, unspecified; I10 Essential (primary) hypertension
CPT/HCPCS: 97802

== ENCOUNTER 2021-08-19 08:00 | Outpatient (RCR) | payer OTHER, SELFPAY ==
[2021-07-20 08:17] VITALS: BMI 29.5
[2021-07-27 00:17] VITALS: BP 124/64; BP 138/78
--- NOTE | 2021-08-19 08:58 | CR.ITP_ITS ---
Diagnosis Exercise - 60-day Assessment - Visit Date of Eval: 08/19/21 Session #:: 23 - Physician Prescribed Exercise Modalities: Treadmill, Rower, Airdyne Frequency: 3x/week for 12 weeks [36 sessions] Intensity: 60-80% of age predicted maximum heart rate reserve Current METSs:: 7 Target Heart Rate:: 105-136 Current RPE:: 12-13 Maximum Excercise HR:: 106 Resting Blood Pressure: 134/74 Maximum Exercise Blood Pressure: 138/72 EKG Type: SB to ST with ST depression noted. Occas pvc and pac. Twave inversion - Outcomes & Goals Goals:: Verbalizes understanding of THR, RPE & goal METS by session 6, Documents in home exercise log/reports 30 min aerobic 5 day/wk by DC, Demonstrates accurate pulse taking by DC, Other additional outcome/goals: see below - Intervention & Plan Exercise Program Goals: Instruct on personal THR & RPE, Instruct on MET level & personal MET goal, Show patient to take own pulse /validate performance until accurate, Instruct on home exercise, Other additional plan/int - 30-day Reassessments 30 day Reassessments:: Progressing - Physical Activity Home Exercise Physical Activity - Home Exercise: Safe Exercise, Warm-up, Self-monitoring, Cool-Down, Home Exercise > 30 min Daily, Sitting Time <3 hours/daily - Outcomes & Goals Outcomes/Goals: Demonstrates correct Warm-up/exercise Cool-Down (S3) if = 2.5 METs, Verbalizes symptoms of exercise intolerance by Session 3 (S3), Demonstrate safe equipment use (S3) & follows exercise prescrition (6), Other: See below - Intervention & Plan Plan/Intervention: Instruct warm-up & cool-down if exercising at > 2 METs, Instruct on symptoms of exercise intolerance & actions to take, Instruct & monitor on saf, Assess intial functional capacity & safety risk, Other See below - 30-day Reassessments 30 day Reassessments:: Progressing Nutrition - Initial Assessment Nutrition - 30-Day Assessment Nutrition - 60-Day Assessment - Program Goals Nutrition Program Goals: LDL <100 optimal. 100 - 129 Near optimal. 130 - 159 Borderline High. 160 - 189 High. Total Cholesterol <200 desirable. 200 - 239 Borderline High. >/= 240 High. HDL < 40 Low >/=60 High. Triglycerides <150 desirable. <199 optimal. VlDL 5 - 40. HgbA1C <7%. BMI <25 Patient has diagnosis of Hyperlipidemia (ICD E78)?: Yes - Visit Date of Assessment:: 08/19/21 Session #:: 23 - Cholesterol/Lipids Determine presence & major risk factors that modify LDL goal: Hypertension or hypertensive medication, Low HDL cholesterol <40 mg/dL*, Family history of premature CHD in Male < 55 years: female <65 yearsFa, Age men > 45 years; women >/= 55 years Outcomes/Goals: Pt IDs own risk factors & lifestyle modifications by Session 10, Verbalizes symptoms of angina & response by session 3., Pt independently manages, Other Additional Outcomes/Goals: Intervention/Plan: Advocate for lipid panel cholesterol medication if applicable, Instruct on personal lipid levels & lipid goals/NCEP guidelines, Instruct on cholesterol, Other additional plan/int Referral to dietitian:: Yes - medical nutrition therapy 30-day Reassessments:: Progressing - Weight Mgt (Other Care) Height: 6 ft 1 in Weight:: 97.976 kg BMI: 28.5 Outcomes/Goals: Pt sets, maintains & shows weight loss goal & trend during rehab, Other additional outcomes/goals Intervention/Plan: Instruct on ideal BMI & set weight loss goal w/patient, Assist pt to ID & incorporate diet changes for weight loss by S9, Refer to Structured Weight Loss program as appropriate, Encourage goal of using 250- 300dcal per session for weight loss, Other additional plan/interventions 30 day Reassessments:: Progressing - Healthy Eating Habits Will attend diet classes:: Yes Outcomes/Goals:: Consume diet rich in vegs,fruits,whole grain/high fiber,fish,lean meat, Limit sat/trans fats,cholesterol & added salts & sugars, Other additional outcome/goals: Intervention/Plan:: Assess current eating habits, Other Additional plan/interventions 30-day Reassessments:: Progressing - Education Gave educational materials for:: Signs & symptoms of hypoglycemia, Signs & symptoms of hyperglycemia, Relate diabetes to coronary artery disease, Healthy eating Nutrition - 90-Day Assessment Nutrition - Final Assessment Medical - Initial Assessment Medical- 30-Day Assessment Medical- 60-Day Assessment - Visit Date of Eval: 08/19/21 Session #:: 23 - Medication Compliance Preventative Medication(s):: Aspirin, Statin/lipid, Beta shelton H/O mental health issues: depression, anxiety, or addiction?: No Doesn?t believe in the benefits of treatment?: No Believes medications are unnecessary or harmful?: No Has a concern about medication side effects?: No Expresses concern over the cost of medications?: No Outcomes/Goals: Verbalizes medications,desired effect & common side effects @ DC, Pt self-reports following medication regimen, Keeps card in wallet w/medications listed by DC, Other additional outcome/goals: Interventions/plans: Instruct on medication effects & side effects, Review medication list w/patient every two weeks, Instruct importance of taking meds as ordered & assist problem solving, Other additional 30-day Reassessments:: Progressing - Tobacco Use Tobacco Use: Non-smoker - Hypertension Hypertension Diagnosis:: Hypertension ICD-10 I10 Resting Blood Pressure:: 134/74 [place] [employer] Hypertension Guidelines: [place] [employer] Hypertension Guidelines. Normal BP Less than 120/80. Elevated BP 120/80. Hypertension Stage 1: BP 130-139/80-89. Hypertesnion Stage 2: BP 140 or higher/90 or higher. Hypertension Crisis: BP higher than 180/120 Peak Exercise Blood Pressure:: 138/72 Outcomes/Goals: Able to verbalize/achieve optimal blood pressure <130/80, Incorporates diet changes & exercise for blood pressure control by DC, Other additional outcomes/goals Interventions/plan: Instruct on optimal blood pressure, hypertension & medications, Instruct on effects of sodium, alcohol, stress, exercise &hypertension, Other additional plan/interventions 30 day Reassessments:: Progressing - Tobacco Cessation Referral Smoking Cessation Referral:: No Individual Education/Counseling:: No Education Schedule Given:: Yes Medical- 90-Day Assessment Medical - Final Assessment Psychosocial - Initial Assess Psychosocial - 30-Day Assess Psychosocial - 60-Day Assess - VIsit Date of Eval: 08/19/21 Session #:: 23 History of previous Mental disease:: No - Outcomes/Goals: See list Psychosocial Outcomes/Goals:: ID's personal stressors & 2 strategies to manage stress by discharge, Other Additional outcome/goals: - Intervention/Plan: See List Interventions/Plan:: Assess stressors,coping strategies & signs of derpression on admission, Instruct/assist pt to develop coping & personal stress Mgt strategies, Refer to Behavioral Health if appropriate, Refer to Physician if appropriate, Instruct patient to recognize signs & symptoms of depression, Instruct patient to recog, Other additional plan/intervention - 30-day Reassessments: 30 day Reassessments:: Progressing Psychosocial - 90-Day Assess Psychosocial - Final Assessmen Patient Health Questionnaire 60-Day Re-eval Assessment 1. Little interest or pleasure in doing things: Not at all 2. Feeling down, depressed, or hopeless: Not at all 3. Trouble falling or staying asleep, or sleeping too much: Not at all 4. Feeling tired or having little energy: Several days 5. Poor appetite or overeating: Not at all 6. Feeling bad about yourself -- or that you are a failure or have let yourself or your family down: Not at all 7. Trouble concentrating on things, such as reading the newspaper or watching television: Several days 8. Moving or speaking so slowly that other people could have noticed. Or the opposite - being so fidgety or restless that you have been moving around a lot more than usual: Not at all 9. Thoughts that you would be better off , or of hurting yourself in some way: Not at all How difficult have these problems made it for you to do your work, take care of things at home, or get along with other people?: Not difficult at all Total Score: 2 Self-Efficacy 60-Day Re-eval Assessment We would like to know how confident you are in doing certain activities. Please select your confidence level for:: Select your confidence level for the following using the scale 1-10 where 1 is not at all confident and 10 is totally confident. Your score is the average of all 6 responses. Fatigue: How confident are you that you can keep the fatigue caused by your disease from interfering with the things you want to do? Select Number: 9 Physical Discomfort or Pain: How confident are you that you can keep the physical discomfort or pain of your disease from interfering with the things you want to do? Select Number: 9 Emotional Distress: How confident are you that you can keep the emotional distress caused by your disease from interfering with the things you want to do? Select Number: 9 Other Symptoms or Health Problems: How confident are you that you can keep other symptoms or health problems from interfering with the things you want to do? Select Number: 9 Different Tasks and Activities: How confident are you that you can do the different tasks and activities needed to manage your health condition so as to reduce your need to see a doctor? Select Number: 9 Medication: How confident are you that you can do things other than just taking medication to reduce how much your illness affects your everyday life? Select Number: 9 Total Score:: 9 Nutrition Survey
[2021-08-19 09:18] VITALS: BP 134/74; BP 138/72; BMI 28.5
== END 2021-08-25 23:59 ==
LOC: CR 08:00
PROVIDERS: PCP Family Medicine; Referring Provider Internal Medicine Cardiovascular Disease; Visit Provider Internal Medicine Cardiovascular Disease
DX: I25.10 Atherosclerotic heart disease of native coronary artery without angina pectoris (principal); I10 Essential (primary) hypertension; E78.00 Pure hypercholesterolemia, unspecified; I21.4 Non-ST elevation (NSTEMI) myocardial infarction
CPT/HCPCS: 93798

== ENCOUNTER 2021-08-30 08:25 | Day surgery (SDC) | payer OTHER, SELFPAY ==
[2021-07-20 08:17] VITALS: BMI 29.5
[2021-08-17 10:21] LABS: Hematocrit 40.8 % (40-54); Hemoglobin 13.1 g/dL (13.0-16.5); Mean Corp Hgb Conc 32.1 g/dL (32-36); Mean Corpuscular Hgb 28.5 pg (27.0-32.0); Mean Corpuscular Volume 88.7 fL (80-94); Mean Platelet Vol. 11.4 fl (6.2-12.0); Platelet Count 192 K/mm3 (150-450); RBC Distribution Width CV 15.7 % (11.6-14.6); RBC Distribution Width SD 51.2 fl (35.1-43.9); White Blood Count 8.4 K/mm3 (4.4-11.0)
[2021-08-17 10:37] LABS: Prothrombin Time (Protime)PT. 13.3 SECONDS (11.7-14.9)
[2021-08-17 10:38] LABS: Partial Thromboplast Time 30.9 Seconds (24.1-36.2)
[2021-08-17 10:47] LABS: Anion Gap 5 (5-15); BUN 17 mg/dL (7-18); BUN/Creat Ratio 15.3 RATIO (10-20); Calcium,Total 9.2 mg/dL (8.5-10.1); Chloride 102 mmol/L (98-107); Creatinine, Serum 1.11 mg/dL (0.70-1.30); EST Glomerular Filtration Rate 72 mL/min (>60); Est Glom Filt Rate - Afr Amer 87 mL/min (>60); Glucose 115 mg/dL (74-106); Potassium 4.4 mmol/L (3.5-5.1); Sodium Level 137 mmol/L (136-145)
[2021-08-26 11:08] VITALS: BMI 28.8
--- NOTE | 2021-08-27 11:51 | PCM.HP.BLA ---
History and Physical Date of Admission: 08/30/21 [facility] [address] [place] [address] OFFICE VISIT Date of Service:? 08/17/21 MR#: [id number] Acct: [id number] Name:SRAVAN ZAMARRIPA Rep #: [id number] : 1960 Provider: ?CRYSTAL Morrow Age/Sex:? 61/M Location: [facility] Status: Signed [facility] History of Present Illness Details: This is a 61-year-old white male who presents today for outpatient cardiovascular follow-up visit. He was consulted based upon concerns of a diagnosis of non-ST segment elevation MO, decreased diastolic compliance/diastolic mediated CHF, CAD (reported as nonobstructive), hyperlipidemia, and hypertension. The patient has undergone previous noninvasive and invasive evaluation at [facility] in the past.? On 04-26-2015 he underwent a stress echocardiogram.? According to the report the patient had ECG changes and echocardiographic left ventricular wall motion changes that were considered to make the test positive.? He subsequently underwent further evaluation with diagnostic cardiac catheterization. The patient has undergone remote evaluation with diagnostic cardiac catheterization at [facility].? That procedure was performed on 04-28-2015.? The results of that procedure are noted below. He states that he did not require continued outpatient cardiovascular follow-up.? He continued medical therapy for concerns of his cardiovascular risk factors with his primary care physician. More recently on 05-29-2021 it appears that he presented to [facility] in the [place], [place] area based upon concerns of ongoing chest discomfort.? He was brought into the hospital for further evaluation and care.? He was diagnosed with a non-ST segment elevation MO.? He underwent noninvasive and invasive cardiovascular evaluation. A transthoracic echocardiogram was performed that demonstrated the left ventricle to have moderate focal basal increased wall thickness/hypertrophy with systolic function low normal to mildly decreased with an LVEF of 50 to 55%, mild MR, and mild AI. He underwent diagnostic cardiac catheterization.? Per the report the left main coronary artery was normal, the LAD had proximal mild disease in mid 20% stenosis, the LCx had OM1 with mild disease in OM 2 with mild to luminal irregularities.? The RCA was a large dominant vessel with mild proximal disease and a PDA with 20 to 30% stenosis.? His LVEDP was 35 mmHg. He was subsequently released home on medical management.? Since being home his medications have been adjusted to assist with his blood pressure control. He underwent a stress test on 08/11/2021 which demonstrated an area concerning for an element of stress-induced myocardial ischemia in portions of the mid to distal anterior segments and mid inferior segments. His most recent echocardiogram results from 08/11/2021 are noted below. ? From a cardiac standpoint, the patient is doing well. He denies any palpitations, chest pain, pressure or heaviness. He denies SOB, Orthopnea, and PND. He does not have bleeding issues; no blood in urine, stool or nosebleeds. He denies any decrease in energy level, myalgias, or claudication.? He does not have edema, or sudden weight gain. He does have an occasional lightheadedness with positional changes. He denies dizziness, syncopal or near syncopal episodes, and headaches. Intake Vital Signs ? 08/15/2208:21 08/17/2209:14 08/17/2209:14 Height 6 ft 1 in 6 ft 1 in 6 ft 1 in Weight: 216 lb 3.2 oz 218 lb ? BMI ? 28.8 ? BP ? 117/63 ? Blood Pressure Location ? Lt brachial ? Position ? Sitting ? Respiration ? 18 ? Pulse ? 55 L ? Pulse Source ? Monitor ? Pulse Oximetry (%) ? 99 ? Intake Visit Reasons:?UPDATE H&P FOR CATH Strategy Intern Required: No Accompanied by: no one Is patient in pain?: No Allergies No Known Allergies Allergy (Verified 08/17/21 10:35) Medications cholecalciferol (vitamin D3) 25 mcg (1,000 unit) tablet (Vitamin D3) 1,000 unit PO DAILY vitamin 04/28/15 [History Confirmed 08/17/21] aspirin 81 mg tablet,delayed release (Adult Aspirin Regimen) 81 mg PO DAILY 06/01/21 [History Confirmed 08/17/21] coenzyme Q10 100 mg tablet 100 mg PO DAILY 06/03/21 [History Confirmed 08/17/21] zinc 50 mg tablet 50 mg PO DAILY 06/03/21 [History Confirmed 08/17/21] atorvastatin 40 mg tablet 40 mg PO QHS #90 tabs 07/29/21 [Rx Confirmed 08/17/21] carvedilol 25 mg tablet 25 mg PO BID #180 tabs 07/29/21 [Rx Confirmed 08/17/21] hydrochlorothiazide 25 mg tablet 25 mg PO DAILY #90 tabs 07/29/21 [Rx Confirmed 08/17/21] lisinopril 10 mg tablet 10 mg PO BID #180 tabs 07/29/21 [Rx Confirmed 08/17/21] ibuprofen 400 mg tablet 400 mg PO ONCE PRN Take with food 08/17/21 [History] PFSH Medical History?(Reviewed 08/17/21 @ 10:39 by Clover Morrow [employer] OPERATOR, [employer] OPERATOR[employer]C) Abnormal EKG Atherosclerotic heart disease of tazl[place] coronary artery without angina pectoris Essential hypertension Family history of coronary artery disease High cholesterol History of left heart catheterization (LHC) (~05/30/21) Hyperlipemia Hypoxia Non-ST elevation (NSTEMI) myocardial infarction Pneumonia due to COVID-19 virus Psoriasis Pure hypercholesterolemia Wound of right lower extremity Family History?(Reviewed 08/17/21 @ 10:39 by Clover Morrow [employer] OPERATOR, [employer] OPERATOR-C) Mother Heart diseaseFather Heart disease Social History?(Reviewed 08/17/21 @ 10:39 by Clover Morrow [employer] OPERATOR, [employer] OPERATOR-C) household members:? spouse Smoking Status:? Never smoker alcohol intake:? current substance use type:? does not use caffeine:? Yes Type: carbonated beverages ROS Const Const: Negative for fatigue, weakness, fever(s), headache(s), chills, frequent falls, weight gain or weight loss Eyes Eyes: Negative for blind spots, loss of peripheral vision, transient loss of vision, blurry vision, change in vision, double vision, floaters or tunnel vision ENT ENT: Negative for headache(s), dizziness, Nosebleed/epistaxis, balance problems or neck pain Cardio Chest Pain: No Palpitations: No Edema: None Muscle aches with walking: None Resp Respiratory: Negative for SOB with activity, SOB at rest or SOB orthopnea\SOB lying down GI GI: Negative nausea, vomiting, heartburn, bloating, vomiting blood/hematemesis, bright, red blood in stools or black,tarry stools Musc Musc: Negative for muscle aches/ myalgia, muscle weakness, joint pain or balance problems Neuro Neuro: Negative for dizziness, lightheadedness, near syncope, syncope, orthostatic symptoms, frequent falls, headache(s), weakness, blurry vision or double vision Asif Hematologic/Lymphatic: Negative for easy bleeding or easy bruising Endo Endo: Negative for fatigue Cardiology Exam Const Appearance: cooperative, healthy appearing, comfortable, no acute distress, well developed and well groomed Nutritional Appearance: overweight Orientation: alert, awake and oriented x3 Head Head: normal to inspection, normocephalic and atraumatic Ears: hearing grossly normal bilaterally Nose: external nose normal Face and Sinus: face symmetric Eyes Eyelids: eyelids normal Conjunctivae: conjunctivae normal Pupils: PERRL EOM: EOM intact bilaterally Neck Neck: normal visual inspection and full ROM Carotids: normal carotid upstroke Chest Chest inspection: normal inspection of the chest, symmetric chest movement and normal respiratory effort Auscultation: Bilateral: Clear to Auscultation Cardio Palpation: normal PMI Rate: regular rate Rhythm: regular rhythm Heart sounds: S1 normal and S2 normal GI GI: normal to inspection, soft and bowel sounds present Neuro General: patient alert, patient awake, patient oriented x3 and moves all extremities Skin Skin: no rashes or lesions noted Extremities Pulses: Normal: Right Radial Pulse and Left Radial Pulse Lower Extremity Edema: None: Bilateral Psych Psychological: normal affect Supplemental Info Supplemental Information Echocardiogram 08/11/2021: Interpretation Summary Mild segmental systolic dysfunction (see wall motion). The estimated ejection fraction is 50 %. The left atrium is mildly enlarged. Mild (1+) mitral valve insufficiency. Mild tricuspid valve insufficiency. Trivial aortic valve insufficiency. Trivial pulmonic valve insufficiency. Right ventricular systolic pressure estimated to be 38 mmHg. There is evidence of diastolic dysfunction. Stress Test 08/11/2021: Procedure: Exercise tolerance test/imaging study Indications: Chest pain; CAD; non-ST segment elevation MO Consent: Per the patient Procedure: The patient exercised on a Gaurav protocol for 8 minutes completing Stage II and 2 minutes of Stage III achieving a peak heart rate of 133 bpm (83% predicted maximal heart rate) with a peak blood pressure 160/72 mmHg and a peak MET capacity of 10 METs. The baseline ECG demonstrated sinus bradycardia; nonspecific ST segment abnormality.? The peak exercise ECG demonstrated continued sinus rhythm with continued ST segment abnormality appearing more prominent (an additional 1 [address] segment depression-horizontal) compared to baseline with gradual resolution towards baseline in recovery. There were no cardiac dysrhythmias pretest, during exercise, or recovery.? The functional capacity was considered good. There was no complaint of chest discomfort during exercise or recovery. The examination was discontinued secondary to dyspnea. Impression: 1.? Technically adequate (percent predicted maximal heart rate greater than 85%) exercise tolerance test 2.? Peak exercise ECG with continued sinus rhythm with continued ST segment abnormality appearing more prominent (an additional [address] segment depression-horizontal) compared to baseline with gradual resolution towards baseline in recovery 3.? There were no cardiac dysrhythmias pretest, during exercise, or recovery 4.? Nuclear images pending Myocardial perfusion imaging study: Technique: The patient was injected with 14.7 mCi of technetium 99m Cardiolite and subsequently rest SPECT Cardiolite nuclear imaging was obtained in the horizontal long, vertical long, and short axis views. The patient exercised on a Gaurav protocol for 8 minutes completing Stage II and 2 minutes of Stage III achieving a peak heart rate of 133 bpm (83% predicted maximal heart rate) with a peak blood pressure 160/72 mmHg and a peak MET capacity of 10 METs.? The patient was injected with 44.3 mCi of technetium 99m Cardiolite and subsequently stress SPECT Cardiolite nuclear imaging was obtained in the horizontal long, vertical long, and short axis views.? A gated Cardiolite study at peak stress was obtained. Interpretation: Rest and stress SPECT Cardiolite nuclear imaging status post realignment, normalization, and attenuation correction, demonstrates the appearance body motion during image acquisition at rest of an element of diminished tracer uptake in portions of the distal inferior segments and status post stress the appearance of diminished myocardial perfusion/tracer uptake in portions of the mid towards distal anterior segments as well as the mid inferior segments.? There is end systolic thickening and brightening.? The gated Cardiolite study demonstrates myocardial thickening and inward wall motion.? The reported LVEF is 53%. Impression: 1.? Rest and stress SPECT Cardiolite nuclear imaging demonstrate myocardial perfusion changes concerning for areas of stress-induced myocardial ischemia in portions of the mid towards distal anterior segments as well as the mid inferior segments, however, based upon the appearance of body motion during image acquisition an element of shifting soft tissue attenuation/artifact cannot necessarily be excluded. 2.? The gated Cardiolite study reports an LVEF of 53%. Cardiac Catheterization 04/28/2015: INTRODUCTION: The patient is a 54-year-old man with a history of abnormal stress test.? The present cardiac catheterization is being undertaken to assess anatomy and to guide therapy. DESCRIPTION OF PROCEDURE: After informed consent was obtained, 1% Xylocaine was used for local anesthetic agent to anesthetize the right radial area.? A right radial Terumo sheath was placed without difficulty and the side port flushed.? A 5-Bahamian JL4 catheter was advanced to ascending aorta, flushed and pressures recorded.? Left coronary ostium was identified and engaged, left coronary angiography performed in multiple views.? Following this, the catheter was removed and a 5-Bahamian 3DRC catheter was inserted.? The right coronary ostium was identified and engaged, right coronary angiography performed in multiple views.? Following this, the catheter was removed and a pigtail catheter was inserted.? Left ventriculogram was performed with 36 mL of contrast at 12 mL per second.? Following this, the catheter was removed.? The sheath was removed.? A TR band was applied.? Intravenous 2000 units of heparin as well as intra-arterial verapamil, heparin, nitroglycerin was administered at the beginning of the procedure. HEMODYNAMICS: The baseline heart rate was noted to be 64 beats per minute in sinus rhythm.? Aortic pressures were 133/76.? Left ventricular pressure was 146/15. CORONARY ARTERIOGRAPHY: LEFT MAIN: The left main coronary artery was noted to be angiographically normal.? It bifurcated into left anterior descending artery and left circumflex artery.? No significant stenosis was noted in this vessel. LEFT CIRCUMFLEX ARTERY: Left circumflex artery was a codominant large vessel.? It gave off a first large obtuse marginal branch with 3 side branches.? No high-grade stenosis was noted in this vessel. The left circumflex artery continued, it gave off an atrial circumflex branch and a second large obtuse marginal branch.? An AV groove branch and a posterior descending artery branch were noted, which did not have any significant stenosis. LEFT ANTERIOR DESCENDING ARTERY: The left anterior descending artery was a medium-sized vessel.? It was a large sized vessel.? It gave off a first large septal outside sales advertising executive, a first diagonal branch and a second diagonal branch.? The vessel continued and wrapped around the apex of the left ventricle. No significant stenosis was noted in this vessel. RIGHT CORONARY ARTERY: The right coronary artery was a dominant vessel.? It gave off a sinoatrial branch, a conus branch, and an acute marginal branch.? It bifurcated into a posterior descending artery and a posterolateral vessel.? No significant stenosis was noted in this vessel. LEFT VENTRICULOGRAM: The left ventriculogram demonstrated overall preserved left ventricular systolic function, estimated ejection fraction of 50% was noted.? There was mild hypokinesis of the mid to distal anterior wall. CONCLUSION: 1.? Angiographically normal left main coronary artery. 2.? Left anterior descending artery, which is angiographically normal. 3.? Left circumflex artery, which is codominant, angiographically normal. 4.? Codominant right coronary artery, which is angiographically normal. 5.? Borderline ejection fraction. Based on the above angiographic findings, the patient ____? with risk factor modification. Labs: ?? ? No Data to Display Diagnostics: ?? ? Electrocardiogram ? Echocardiogram ? Stress Test NM ? Stress Test ? Chest X-Ray ? Pulmonary: ?? ? No Data to Display Assessment and Plan Assessment and Plan (1) Abnormal stress test: ?Status:?Acute ?Plan: Patients most recent stress test from 08/11/2021 was abnormal. There was an area concerning for an element of stress-induced myocardial ischemia in portions of the mid to distal anterior segments and mid inferior segments. He is scheduled for a cardiac catheterization to evaluate this. Cardiac catheterization instructions given to patient, he verbalizes understanding. (2) Atherosclerotic heart disease of t[place] coronary artery without angina pectoris: ?Status:?Acute ?Comment: Non obstructive coronary artery disease ?Plan: Patient has a history of nonobstructive coronary artery disease. His most recent stress test from 08/11/21 demonstrated an area concerning for an element of stress-induced myocardial ischemia in portions of the mid to distal anterior segments and mid inferior segments. He is scheduled for a cardiac catheterization to evaluate this. Cardiac cathterization instructions given to patient, he verbalizes understanding. At this time, he will continue with his current medical therapy, along with aggressive risk factor and lifestyle modifications. (3) Pure hypercholesterolemia: ?Status:?Acute ?Plan: Patient has a history of hypercholesterolemia. His PCP monitors this. His most recent lipid panel from 05/28/2020: Cholesterol 178, HDL 38, LDL 122, triglycerides 92. He will continue atorvastatin 40mg daily, along with aggressive risk factor and lifestyle modifications. (4) Essential hypertension: ?Status:?Acute ?Plan: Patient has a history of hypertension. His blood pressure is well controlled at this time. He will continue with his current medical therapy, along with monitoring his blood pressures at home. Plan Details Additional Comments: Patient will follow up in 2 weeks, or sooner if needed. Thank you for allowing me to participate in the care of your patient.? Please don't hesitate to call if any issues arise. This note was generated using a voice recognition system and there may be incorrect words, spelling or punctuation that were not noted when reviewing the office note prior to saving. Follow Up: ? ? Keep as is (PFM) Addt'l Comments Addendum: The patient has been reported by the cardiac rehab staff as having concerns with respect to his cardiovascular status as well as being noted during cardiac rehab to have electrocardiographic changes on his cardiac rhythm strips demonstrating ST segment abnormality/depression during exercise which appears to resolve during recovery. Thus, the patient has undergone additional cardiovascular noninvasive evaluation.? Based upon this evaluation the recommendation has been made to proceed with repeat invasive evaluation with diagnostic cardiac catheterization.? The procedure risks have been previously discussed with the patient.? He has been agreeable to this approach. This note was generated using a voice recognition system and there may be incorrect words, spelling or punctuation that were not noted when reviewing the office note prior to saving. Coding Level of Care Code Off vis,est,level 3 Diagnoses Abnormal stress test? R94.39 Atherosclerotic heart disease of tazl[place] coronary artery without angina pectoris? I25.10 Pure hypercholesterolemia? E78.00 Essential hypertension? I10 Coding Level of Care Code Off vis,est,level 3 Diagnoses Abnormal stress test? R94.39 Atherosclerotic heart disease of t[place] coronary artery without angina pectoris? I25.10 Pure hypercholesterolemia? E78.00 Essential hypertension? I10 08/17/21 1108 <Electronically signed by Clover Morrow NP [employer] OPERATOR-C> Date Clover Morrow NP [employer] OPER[employer]-C 08/17/21 1748<Electronically signed by Orestes Mackey MD> Cosigner Signature: Date (if applicable) Orestes Mackey MD CC:? Orestes? Guzman ~ Assessment & Plan Addt'l Comments I have re-examined the patient. There are no clinical changes since date of exam
--- NOTE | 2021-08-30 13:17 | CL.D_ITS ---
Patient Name: SRAVAN GREGORIO Study Date: 08/30/2021 Performing: Orestes Mackey MD Ht: 72.83 inches 185 cm : 1960 Wt: 218.26 lbs 99 kg Age: 61 Gender: male BSA: 2.23 PROCEDURE(S) PERFORMED DC01-(64868)LHC/COR/LV CLINICAL PROFILE AND INDICATIONS Indications: Suspected CAD Heart Failure: None Stress/Imaging Date: 08/11/2021tress Test with SPECT MPI: Positive Intermediate Risk Angina Classification Anginal Classification w/in 2 Weeks: CCS II CAD Presentations: Other: chest pain CONCLUSIONS Elevated Left Ventricular End Diastolic Pressure Normal LV size, wall motion,and systolic function LVEF: by LV gram 55 % Single vessel CAD of the LAD: mild luminal irregularities (non obstructive) RECOMMENDATIONS Risk factor modification Medical therapy DESCRIPTION OF PROCEDURE The patient arrived to the procedure lab. The risks and benefits of the procedure as well as a full d escription of our services here and current unavailability of surgical backup were fully explained to the patient and/or their significant other prior to the catheterization. The Timeout was completed, verifying the correct patient and procedure. The patient's procedural site was prepped and draped in the usual fashion. Local anesthetic was given subcutaneously to right radial region with Lidocaine 2% . Using a modified Seldinger technique, arterial access was obtained via the right radial artery, a 6 Fr sheath was inserted. Left Coronary Artery selective angiography was performed in multiple views u sing a 5 Fr. 4.0 Newbury catheter. Right Coronary Artery selective angiography was then performed in mu ltiple views using a 5 Fr. 4.0 Newbury catheter. Left Ventriculography was performed in CABRERA projection using a 5 Fr. Pigtail catheter. LV to AO pullback pressures were then recorded.The arterial sheath was pulled and a TR Band was applied for hemostasis CORONARY ANGIOGRAPHY DOMINANCE: Right Dominant LEFT HEART ASSESSMENT Left Ventricular Ejection Fraction: by LV Gram 55 % Normal LV wall motion Elevated Left Ventricular End Diastolic Pressure LVEDP: 31 mmHg LEFT MAIN: Angiographically normal LEFT ANTERIOR DESCENDING ARTERY: MID LAD: Mild luminal irregularities CIRCUMFLEX ARTERY: Angiographically normal RIGHT CORONARY ARTERY: Angiographically normal AORTIC ROOT: Angiographically normal COMPLICATIONS No Complications PROCEDURE MEDICATIONS Fentanyl 50 mcg IV Versed 1 mg IV Fentanyl 50 mcg IV Versed 1 mg IV Oxygen: 2 L/min via nasal cannula Heparin given IA 08/30/2021 10:55:52 IV Fluids: .9 NaCl 100cc given 08/30/2021 10:55:23 SUMMARY OF HEMODYNAMIC DATA Time AIR REST ECG 08:52:35 ECG 10:16:11 AO 118/59 (85) SA 10:58:01 LV 128/11, 30 11:04:36 LV 129/12, 31 11:04:44 LV 128/13, 33 11:05:34 LV 139/12, 33 11:05:43 LVp 138/12, 31 11:05:47 AOp 130/62 (89) 11:05:54 Signed By Orestes Mackey MD On 08/30/2021 11:26:17 Orestes Mackey MD
== END 2021-08-30 13:30 | disposition home or self-care (01) ==
PROVIDERS: PCP Family Medicine; Visit Provider Internal Medicine Cardiovascular Disease
DX: I25.10 Atherosclerotic heart disease of native coronary artery without angina pectoris (principal); I10 Essential (primary) hypertension; R94.39 Abnormal result of other cardiovascular function study; E78.00 Pure hypercholesterolemia, unspecified; E66.3 Overweight; Z68.28 Body mass index [BMI] 28.0-28.9, adult; Z79.82 Long term (current) use of aspirin; Z79.899 Other long term (current) drug therapy; Z86.16 Personal history of COVID-19
CPT/HCPCS: 36415; 80048; 85027; 85610; 85730; 93458; 99152; 99153; J7030; C1769; C1894; Q9967

== ENCOUNTER 2021-09-23 08:00 | Outpatient (RCR) | payer OTHER, SELFPAY ==
[2021-08-26 00:15] VITALS: BP 134/74; BP 138/72
--- NOTE | 2021-09-19 07:00 | PCM.CR.ITP ---
Diagnosis Exercise - Final/Discharge - Visit Date of Eval: 09/19/21 Session #:: 34 - Physician Prescribed Exercise Modalities: Treadmill, Rower, Airdyne Frequency: 3x/week for 12 weeks [36 sessions] Intensity: 60-80% of age predicted maximum heart rate reserve Current METSs:: 7.0 Target Heart Rate:: 105-136 Current RPE:: 13 Maximum Excercise HR:: 108 Resting Blood Pressure: 122/60 Maximum Exercise Blood Pressure: 142/62 EKG Type: SB to sinus tach, ST depression T wave inversion, multifocal PVCs. Cleared Current Physical Activity or Exercising minutes: 42:20 - Outcomes & Goals Goals:: Verbalizes understanding of THR, RPE & goal METS by session 6, Documents in home exercise log/reports 30 min aerobic 5 day/wk by DC, Demonstrates accurate pulse taking by DC - Intervention & Plan Exercise Program Goals: Instruct on personal THR & RPE, Instruct on MET level & personal MET goal, Show patient to take own pulse /validate performance until accurate, Instruct on home exercise - 30-day Reassessments 30 day Reassessments:: Met - Physical Activity Home Exercise Physical Activity - Home Exercise: Safe Exercise, Warm-up, Self-monitoring, Cool-Down, Home Exercise > 30 min Daily, Sitting Time <3 hours/daily - Outcomes & Goals Outcomes/Goals: Demonstrates correct Warm-up/exercise Cool-Down (S3) if = 2.5 METs, Verbalizes symptoms of exercise intolerance by Session 3 (S3), Demonstrate safe equipment use (S3) & follows exercise prescrition (6) - Intervention & Plan Plan/Intervention: Instruct warm-up & cool-down if exercising at > 2 METs, Instruct on symptoms of exercise intolerance & actions to take, Instruct & monitor on saf - 30-day Reassessments 30 day Reassessments:: Met Nutrition - Initial Assessment Nutrition - 30-Day Assessment Nutrition - 60-Day Assessment Nutrition - 90-Day Assessment Nutrition - Final Assessment - Program Goals Nutrition Program Goals: LDL <100 optimal. 100 - 129 Near optimal. 130 - 159 Borderline High. 160 - 189 High. Total Cholesterol <200 desirable. 200 - 239 Borderline High. >/= 240 High. HDL < 40 Low >/=60 High. Triglycerides <150 desirable. <199 optimal. VlDL 5 - 40. HgbA1C <7%. BMI <25 Patient has diagnosis of Hyperlipidemia (ICD E78)?: Yes - Visit Date of Assessment:: 09/19/21 Session #:: 34 - No updated lab drawn - Cholesterol/Lipids Determine presence & major risk factors that modify LDL goal: Hypertension or hypertensive medication, Family history of premature CHD in Male < 55 years: female <65 yearsFa, Age men > 45 years; women >/= 55 years Outcomes/Goals: Pt IDs own risk factors & lifestyle modifications by Session 10, Verbalizes symptoms of angina & response by session 3., Pt independently manages Intervention/Plan: Instruct on personal lipid levels & lipid goals/NCEP guidelines, Instruct on cholesterol 30-day Reassessments:: Progressing - Diabetes (Other Core Measures) Diabetes Type: Not Applicable - Weight Mgt (Other Care) Not Applicable: Yes Height: 6 ft 1 in Weight:: 218 lb BMI: 28.8 Diagnosis Overweight/Obesity BMI> 30% ICD-10 E66: No Diagnosis High BMI/Morbid Obesity BMI> 35% ICD-10 Z68: No Outcomes/Goals: Pt sets, maintains & shows weight loss goal & trend during rehab Intervention/Plan: Instruct on ideal BMI & set weight loss goal w/patient, Assist pt to ID & incorporate diet changes for weight loss by S9 30 day Reassessments:: Met - Healthy Eating Habits Will attend diet classes:: Yes Outcomes/Goals:: Consume diet rich in vegs,fruits,whole grain/high fiber,fish,lean meat, Limit sat/trans fats,cholesterol & added salts & sugars Intervention/Plan:: Assess current eating habits 30-day Reassessments:: Met - Education Gave educational materials for:: Healthy eating Medical - Initial Assessment Medical- 30-Day Assessment Medical- 60-Day Assessment Medical- 90-Day Assessment Medical - Final Assessment - Visit Date of Eval: 09/19/21 Session #:: 34 - Medication Compliance Preventative Medication(s):: Aspirin, Statin/lipid, Beta shelton H/O mental health issues: depression, anxiety, or addiction?: No Doesn?t believe in the benefits of treatment?: No Believes medications are unnecessary or harmful?: No Has a concern about medication side effects?: No Expresses concern over the cost of medications?: No Outcomes/Goals: Verbalizes medications,desired effect & common side effects @ DC, Pt self-reports following medication regimen, Keeps card in wallet w/medications listed by DC Interventions/plans: Instruct on medication effects & side effects, Review medication list w/patient every two weeks, Instruct importance of taking meds as ordered & assist problem solving 30-day Reassessments:: Met - Tobacco Use Tobacco Use: Non-smoker - Hypertension Hypertension Diagnosis:: Hypertension ICD-10 I10 Resting Blood Pressure:: 122/60 [place] [employer] Hypertension Guidelines: [place] [employer] Hypertension Guidelines. Normal BP Less than 120/80. Elevated BP 120/80. Hypertension Stage 1: BP 130-139/80-89. Hypertesnion Stage 2: BP 140 or higher/90 or higher. Hypertension Crisis: BP higher than 180/120 Peak Exercise Blood Pressure:: 142/62 Outcomes/Goals: Able to verbalize/achieve optimal blood pressure <130/80, Incorporates diet changes & exercise for blood pressure control by DC Interventions/plan: Instruct on optimal blood pressure, hypertension & medications, Instruct on effects of sodium, alcohol, stress, exercise &hypertension 30 day Reassessments:: Met - Tobacco Cessation Referral Smoking Cessation Referral:: No Individual Education/Counseling:: No Education Schedule Given:: Yes - actively participated in education Psychosocial - Initial Assess Psychosocial - 30-Day Assess Psychosocial - 60-Day Assess Psychosocial - 90-Day Assess Psychosocial - Final Assessmen - VIsit Date of Eval: 09/19/21 Session #:: 34 Not Applicable: Yes History of previous Mental disease:: No - Psychosocial Test Tool Used:: PHQ-9 Questionnaire phq-9 Severity: Severity. 1-4 Minimal Depression. 5-9 Mild Depression. 10-14 Moderate Depression. 15-19 Moderately Sever Depression. 20-27 Severe Depression. Rule: - Referral to Behavioral Health PS - Interventions: Yes Attend Stress Management Classes, No Referral to Behavioral Health if PHQ-9 score >9:, No Referral to [facility], No Referral to Physician if PHQ-9 if score is 5-9: - Outcomes/Goals: See list Psychosocial Outcomes/Goals:: ID's personal stressors & 2 strategies to manage stress by discharge - Intervention/Plan: See List Interventions/Plan:: Assess stressors,coping strategies & signs of derpression on admission, Instruct/assist pt to develop coping & personal stress Mgt strategies, Instruct patient to recognize signs & symptoms of depression, Instruct patient to recog - 30-day Reassessments: 30 day Reassessments:: Met Patient Health Questionnaire Discharge Assessment 1. Little interest or pleasure in doing things: Not at all 2. Feeling down, depressed, or hopeless: Not at all 3. Trouble falling or staying asleep, or sleeping too much: Not at all 4. Feeling tired or having little energy: Not at all 5. Poor appetite or overeating: Not at all 6. Feeling bad about yourself -- or that you are a failure or have let yourself or your family down: Not at all 7. Trouble concentrating on things, such as reading the newspaper or watching television: Not at all 8. Moving or speaking so slowly that other people could have noticed. Or the opposite - being so fidgety or restless that you have been moving around a lot more than usual: Not at all 9. Thoughts that you would be better off , or of hurting yourself in some way: Not at all Total Score: 0 Self-Efficacy Discharge Assessment We would like to know how confident you are in doing certain activities. Please select your confidence level for:: Select your confidence level for the following using the scale 1-10 where 1 is not at all confident and 10 is totally confident. Your score is the average of all 6 responses. Fatigue: How confident are you that you can keep the fatigue caused by your disease from interfering with the things you want to do? Select Number: 10 Physical Discomfort or Pain: How confident are you that you can keep the physical discomfort or pain of your disease from interfering with the things you want to do? Select Number: 10 Emotional Distress: How confident are you that you can keep the emotional distress caused by your disease from interfering with the things you want to do? Select Number: 10 Other Symptoms or Health Problems: How confident are you that you can keep other symptoms or health problems from interfering with the things you want to do? Select Number: 10 Different Tasks and Activities: How confident are you that you can do the different tasks and activities needed to manage your health condition so as to reduce your need to see a doctor? Select Number: 10 Medication: How confident are you that you can do things other than just taking medication to reduce how much your illness affects your everyday life? Select Number: 10 Total Score:: 10 Nutrition Survey
[2021-09-19 07:07] VITALS: BP 122/60; BP 142/62; BMI 28.8
== END 2021-09-25 23:59 ==
LOC: CR 08:00
PROVIDERS: PCP Family Medicine; Referring Provider Internal Medicine Cardiovascular Disease; Visit Provider Internal Medicine Cardiovascular Disease
DX: I25.10 Atherosclerotic heart disease of native coronary artery without angina pectoris (principal); I10 Essential (primary) hypertension; E78.00 Pure hypercholesterolemia, unspecified; I25.2 Old myocardial infarction
CPT/HCPCS: 93798

== ENCOUNTER 2021-10-03 08:00 | Outpatient (RCR) | payer OTHER, SELFPAY ==
[2021-09-19 07:07] VITALS: BMI 28.8
[2021-09-26 00:13] VITALS: BP 122/60; BP 142/62
== END 2021-10-26 23:59 ==
LOC: CR 08:00
PROVIDERS: PCP Family Medicine; Referring Provider Internal Medicine Cardiovascular Disease; Visit Provider Internal Medicine Cardiovascular Disease
DX: I25.10 Atherosclerotic heart disease of native coronary artery without angina pectoris (principal); I10 Essential (primary) hypertension; E78.00 Pure hypercholesterolemia, unspecified; I25.2 Old myocardial infarction
CPT/HCPCS: 93798

== ENCOUNTER → 2021-12-12 | Outpatient (CLI) | payer OTHER, SELFPAY ==
[2021-09-19 07:07] VITALS: BMI 28.8
[2021-12-12 19:29] LABS: ALB/GLOB Ratio 1.2 RATIO (0.9-2.4); AST(SGOT) 20 U/L (15-37); Alanine Aminotransfer ALT/SGPT 28 U/L (16-61); Albumin, Serum 3.6 g/dL (3.2-5.0); Alkaline Phosphatase 57 U/L (45-117); Anion Gap 7 (5-15); BUN 21 mg/dL (7-18); BUN/Creat Ratio 17.5 RATIO (10-20); Calcium,Total 8.8 mg/dL (8.5-10.1); Chloride 104 mmol/L (98-107); Cholesterol 121 mg/dL (200); EST Glomerular Filtration Rate 66 mL/min (>60); Est Glom Filt Rate - Afr Amer 79 mL/min (>60); Glucose 92 mg/dL (74-106); High Density Lipoprotein 31 mg/dL; Potassium 3.7 mmol/L (3.5-5.1); Protein, Total 6.6 g/dL (6.4-8.2); Sodium Level 140 mmol/L (136-145); Triglycerides 89 mg/dL; Very Low Density Lipoprotein 18 mg/dL (5-40)
== END | disposition home or self-care (01) ==
LOC: MFPLAB 08:40
PROVIDERS: PCP Family Medicine; Referring Provider Family Medicine; Visit Provider Family Medicine
DX: E78.00 Pure hypercholesterolemia, unspecified (principal)
CPT/HCPCS: 36415; 80053; 80061

== ENCOUNTER → 2022-06-06 | Outpatient (CLI) | payer OTHER, SELFPAY ==
[2021-09-19 07:07] VITALS: BMI 28.8
[2022-06-06 08:15] VITALS: PULSE 55; PULSE 61; PULSE 62; PULSE 72; PULSE 75; PULSE 79; PULSE 80; O2SAT 92; O2SAT 93; O2SAT 96; O2SAT 98; O2SAT 99
--- NOTE | 2022-06-06 14:37 | WT_ITS ---
PSN 6 Minute Walk Test 6 Minute Walk Test 6 Minute Walk Test: 6 Minute Walk Test PSN:6-Minute Walk Test Start: 06/06/22 08:30 Freq: Status: Active Protocol: RESP.6MINW Document 06/06/22 08:15 [facility] (Rec: 06/06/22 08:33 [facility] [id number]) 6 Minute Walk Test Date Performed 06/06/22 Time Performed 08:15 Height 6 ft 1 in Weight: 101.151 kg Weight in Pounds 223.[address]: Dr Smith Assistive device used: None Pre-test Oxygen Delivery Method Room Air Pulse Ox (%) 99 Pulse Rate (60-100 beats/min) 55 L Dyspnea Delilah Scale (0-10) 0 Exertion Delilah Scale (6-20) 6 1st minute Oxygen Delivery Method Room Air Pulse Ox (%) 98 Pulse Rate (60-100 beats/min) 61 2nd minute Oxygen Delivery Method Room Air Pulse Ox (%) 96 Pulse Rate (60-100 beats/min) 75 3rd minute Oxygen Delivery Method Room Air Pulse Ox (%) 96 Pulse Rate (60-100 beats/min) 80 4th minute Oxygen Delivery Method Room Air Pulse Ox (%) 96 Pulse Rate (60-100 beats/min) 79 5th minute Oxygen Delivery Method Room Air Pulse Ox (%) 92 Pulse Rate (60-100 beats/min) 72 6th minute Oxygen Delivery Method Room Air Pulse Ox (%) 93 Pulse Rate (60-100 beats/min) 75 Dyspnea Delilah Scale (0-10) 0 Exertion Delilah Scale (6-20) 8 Post-test Oxygen Delivery Method Room Air Pulse Ox (%) 99 Pulse Rate (60-100 beats/min) 62 Full Laps Walked 28 Partial Lap, Number of Tiles Walked 20 Total Distance Walked (ft) 1672 Interpretation Interpretation: In summary, the patient was able to travel 1672 feet over the course of 6 minutes on room air with no assistive devices or breaks. The patient did experience significant desaturation from a baseline of 99% to as low as 92%. No significant tachycardia was noted. These findings are consistent with a respiratory limitation exercise tolerance. Recommendations Recommendations: No supplemental oxygen is indicated at this time.
== END | disposition home or self-care (01) ==
LOC: PSN 08:00
PROVIDERS: PCP Family Medicine; Referring Provider Internal Medicine Critical Care Medicine; Visit Provider Internal Medicine Critical Care Medicine
DX: R06.09 Other forms of dyspnea (principal)
CPT/HCPCS: 94618

== ENCOUNTER → 2022-06-09 | Outpatient (CLI) | payer OTHER, SELFPAY ==
[2021-09-19 07:07] VITALS: BMI 28.8
--- NOTE | 2022-06-09 16:02 | PFTCOMP ---
COMPLETE PULMONARY FUNCTION TEST INTERPRETATION Brief HPI: Patient is a 61-year-old male, currently under the care of Dr. Smith, who presents to [facility] for complete pulmonary function tests secondary to diagnosis of dyspnea. Respiratory therapist reports good effort and reproducible results. Interpretation: Forced expiration spirometry shows no large airways obstructive ventilatory defect with an FEV1 of 96% predicted. There is no significant bronchodilator response by strict ATS criteria. Spirograms are of good quality and plateau normally. The respiratory flow volume loop shows a normal pattern. Lung volumes by body plethysmography show a normal total lung capacity at 6.43 L, 87% predicted. All other lung volumes are reduced symmetrically. Diffusion capacity by carbon monoxide is normal at 94% predicted. The airway resistance is slightly elevated. No previous pulmonary function tests were available for review. Impression: Grossly normal pulmonary function tests. However, lung volumes are at the lower limit of normal, so early restrictive disease cannot be excluded
== END | disposition home or self-care (01) ==
PROVIDERS: PCP Family Medicine; Referring Provider Internal Medicine Critical Care Medicine; Visit Provider Internal Medicine Critical Care Medicine
DX: R06.09 Other forms of dyspnea (principal)
CPT/HCPCS: 94060; 94726; 94729

== ENCOUNTER → 2022-06-13 | Outpatient (CLI) | payer OTHER, SELFPAY ==
[2021-09-19 07:07] VITALS: BMI 28.8
[2022-06-13 13:31] LABS: PSA,Total - Annual Screen 0.52 ng/mL (0.00-4.00)
== END | disposition home or self-care (01) ==
LOC: MFPLAB 09:47
PROVIDERS: PCP Family Medicine; Visit Provider Family Medicine
DX: Z12.5 Encounter for screening for malignant neoplasm of prostate (principal)
CPT/HCPCS: 36415; 84153; G0103

== ENCOUNTER 2022-11-06 21:45 | Observation (INO) | payer OTHER, SELFPAY ==
[2021-09-19 07:07] VITALS: BMI 28.8
[2022-11-06 21:46] VITALS: BP 168/97; PULSE 75; RESP 18; TEMP 36.4; O2SAT 88; BMI 30.2
--- NOTE | 2022-11-06 22:24 | EDS_ITS ---
HPI History of Present Illness Chief Complaint: Hypertension [facility] Medical History Abnormal EKG Atherosclerotic heart disease of [place] coronary artery without angina pectoris Essential hypertension Family history of coronary artery disease High cholesterol History of left heart catheterization (LHC) (~08/30/21) Hyperlipemia Hypoxia Non-ST elevation (NSTEMI) myocardial infarction Pneumonia due to COVID-19 virus Psoriasis Pure hypercholesterolemia Wound of right lower extremity Home Medications cholecalciferol (vitamin D3) 25 mcg (1,000 unit) tablet (Vitamin D3) 1,000 unit PO DAILY vitamin 04/28/15 [History Last Taken 02/27/21 10:00] aspirin 81 mg tablet,delayed release (Adult Aspirin Regimen) 81 mg PO DAILY . 06/01/21 [History Last Taken 08/30/21] coenzyme Q10 100 mg tablet 100 mg PO DAILY . 06/03/21 [History Last Taken Unknown] ibuprofen 400 mg tablet 400 mg PO ONCE PRN Take with food 08/17/21 [History Last Taken Unknown] carvedilol 12.5 mg tablet 25 mg (2 x 12.5 mg) PO BID . #1 TAB 04/21/22 [Rx Last Taken Unknown] lisinopril 10 mg tablet 10 mg PO BID htn #180 tabs 05/15/22 [Rx Last Taken Unknown] atorvastatin 40 mg tablet 40 mg PO QHS cholesterol #90 tabs 10/16/22 [Rx Last Taken Unknown] Allergy/AdvReac Type Severity Reaction Status Date / Time No Known Allergies Allergy Verified 10/16/22 09:12 Family History Mother Heart disease Father Heart disease Surgical History no surgical history Social History household members: spouse Smoking Status: Never smoker alcohol intake: current substance use type: does not use caffeine: Yes Type: carbonated beverages EXAM Physical Exam Const Vital Signs: 11/06/22 21:46 11/06/22 21:46 11/06/22 22:28 Temperature 97.5 F L 97.5 F L Temperature Source Oral Temporal Pulse Rate 75 75 Respiratory Rate 18 18 Respiratory Effort Respiratory Pattern Blood Pressure 168/97 H 168/97 H Blood Pressure Mean 120 120 Pulse Ox 88 88 Oxygen Delivery Method Room Air Room Air Nasal Cannula Oxygen Flow Rate (L/min) 2 11/06/22 22:28 11/06/22 22:46 11/06/22 23:00 Temperature Temperature Source Pulse Rate 58 L Respiratory Rate 16 Respiratory Effort Normal Non-Labored Respiratory Pattern Normal Blood Pressure 153/68 H Blood Pressure Mean 96 Pulse Ox 94 95 Oxygen Delivery Method Nasal Cannula Nasal Cannula Oxygen Flow Rate (L/min) 2 2 11/07/22 00:10 Temperature 98.4 F Temperature Source Temporal Pulse Rate 59 L Respiratory Rate 15 Respiratory Effort Respiratory Pattern Blood Pressure 145/91 H Blood Pressure Mean 109 Pulse Ox 92 Oxygen Delivery Method Room Air Oxygen Flow Rate (L/min) MDM MDM MDM Narrative Medical decision making narrative: HISTORY OF PRESENT ILLNESS: 62-year-old male here for feeling dizzy, diffuse weakness and sweaty. Notes elevated blood pressure at home. He notes 2 weeks of a head cold. Since then has had cough productive of white sputum. Denies history of COPD or asthma. He denies any chest pain or shortness of breath but notes just prior to arrival had an episode of feeling lightheaded/dizzy feeling he is going to pass out. States this lasted for only few seconds and resolve spontaneously. The patient denies recent surgery in the last 4 weeks or immobilization in the last 3 days, denies previous diagnosis of DVT or PE, hemoptysis, unilateral leg swelling or malignancy with treatment the last 6 months. No estrogen use noted. He has no sick contacts he is fully vaccinating his COVID-19. REVIEW OF SYSTEMS: Pertinent positives: Diffuse weakness, dizziness and diaphoresis Pertinent negatives: Chest pain, shortness of breath PHYSICAL EXAM: Nursing triage notes reviewed, Vital signs reviewed Constitutional: please see mdm HENT: MMM Eyes: Pupils equal round and reactive to light, Extraocular muscles intact Neck: No stridor, no JVD, full neck ROM Lungs: Clear to auscultation, No wheezing or rales. No increased work of breathing, no conversational dyspnea, no accessory muscle use, no nasal flaring. No respiratory distress noted Heart: Regular rate and rhythm, No murmurs, No rubs and No gallops, 2+ distal pulses (radial, femoral, posterior tibial) in all extremities Abdomen: Soft, there is no tenderness, rigidity, rebound or guarding, no obvious peritoneal signs, no palpable pulsatile abdominal masses, no auscultated abdominal bruit : No CVAT Extremities: No edema Neuro: Alert and oriented x3, neuro exam at baseline, cranial nerves II through XII are intact. No pain with extraocular muscle movement. There is negative test of skew. Normal speech. 5 of 5 strength in upper and lower extremities in flexion extension. Intact sensation to light touch in upper and lower extremity dermatomes. No truncal or extremity ataxia. No dysdiadochokinesia. Normal gait. 2+ reflexes. No meningeal signs. Negative Babinski. NIH of 0 Skin: No rash or lesions noted MEDICAL DECISION MAKING: Chief Complaint: Dizziness, diffuse weakness hypertension External records reviewed: Last cardiac catheterization in July 2021 for suspected CAD at this time is ejection fraction 55% he had single-vessel disease is nonobstructive at this time respect modification medical therapy was recommended Factors affecting care: Hypertension, hyperlipidemia Social determinants of health: none History obtained from others: The patient's Consults: Internal medicine ALL IMAGES (IF OBTAINED) HAVE BEEN PERSONALLY REVIEWED AND INTERPRETED BY MYSELF. EKG shows normal sinus rhythm, normal axis, prolonged MT interval, first-degree AV block, ST depressions noted laterally similar to prior EKG in 2021 CBC without leukocytosis, severe anemia, no thrombocytopenia. BMP without evidence of significant electrolyte abnormalities, no anion gap, no acute kidney injury. Troponin is negative, no evidence of myocardial ischemia. COVID is negative MDM Narrative: Was initially mildly hypertensive otherwise hemodynamically stable afebrile and nontoxic-appearing. He was noted to be hypoxic in triage was placed on 2 L nasal cannula. This is a new oxygen requirement for the patient does not have access to oxygen at home. Nonfocal neuro exam in the setting of dizziness suspicion for acute posterior CVA. I considered the following differential diagnosis: Pneumonia arrhythmia, anemia, electrolyte abnormality, dehydration I obtained a [facility] lab and imaging work-up to further elucidate the etiology of the patient's complaints. Chest x-ray was consistent with pneumonia. This is consistent with his clinical and historical evaluation. I did give ceftriaxone azithromycin for antimicrobial prophylaxis. Given hypoxia and new oxygen requirement patient will require inpatient mission. Discussed with hospitalist. The patient and/or family, caregivers express understanding. The patient and/or family, caregivers agrees with the plan. Shared decision making: I will have a discussion with the patient and or visitors regarding risk/benefits of further testing or admission. They will be made aware of of the risk/benefits inherent in this decision they will be given the opportunity to voice understanding. Total critical care time today provided was at least 0 minutes. This excludes separately billable procedures. Critical care time (if documented) is secondary to the patient having high probability of clinically significant/life threatening deterioration in the patient's condition which required my urgent intervention. Impression: 1. Hypoxia 2. Community-acquired pneumonia 3. History of ACS Dispo: Admit to medicine Lab Data Attestation: I reviewed the patient's lab results. Labs: Laboratory Results - last 24 hr 11/06/22 22:10 WBC 8.0 RBC 4.34 L Hgb 13.1 Hct 40.4 MCV 93.1 MCH 30.2 MCHC 32.4 RDW Std Deviation 46.9 H RDW Coeff of Shonda 13.7 Plt Count 242 MPV 11.4 Immature Gran % (Auto) 0.600 Neut % (Auto) 60.2 Lymph % (Auto) 28.0 [place] % (Auto) 6.5 Eos % (Auto) 3.9 Baso % (Auto) 0.8 Absolute Neuts (auto) 4.8 Absolute Lymphs (auto) 2.23 Nucleated RBC % 0 Sodium 139 Potassium 3.8 Chloride 106 Carbon Dioxide 22.0 Anion Gap 11 BUN 29 H Creatinine 1.20 Estim Creat Clear Calc 73.06 Est GFR (MDRD) Af Amer 79 Est GFR (MDRD) Non-Af 65 BUN/Creatinine Ratio 24.2 H Glucose 117 H Calcium 8.7 Troponin I High Sens 30 Radiography Diagnostic Testing: Clinical Impression(s) from Imaging Studies Chest X-Ray 11/06/22 23:15 IMPRESSION: Right lower lobe airspace disease which may represent edema or early pneumonia. Electronically Signed: Christiano Self MD at 23:39 EDT , Discharge Plan Disposition Disposition: Acute Care Hospital [facility] Discharge Date/Time: 11/07/22 01:23
--- NOTE | 2022-11-06 22:26 | EKG12_ITS ---
Test Reason : DYSRHYTHMIA Blood Pressure : / mmHG Vent. Rate : 065 BPM Atrial Rate : 065 BPM P-R Int : 244 ms QRS Dur : 102 ms QT Int : 384 ms P-R-T Axes : -20 004 113 degrees QTc Int : 399 ms Sinus rhythm with 1st degree A-V block ST & T wave abnormality, consider lateral ischemia Abnormal ECG Confirmed by BECKIE NOWAK, NOBLE ([id number]), online editor TERE BALDERAS ([id number]) on 11/09/2022 2:10:03 PM Referred By: LEWIS Confirmed By:NOBLE BUTTS MD
[2022-11-06 22:46] VITALS: BP 153/68; PULSE 58; RESP 16; O2SAT 94
[2022-11-06 22:54] LABS: Absolute Lymphocyte Count 2.23 X10^3/uL (0.83-4.51); Absolute Neutrophil Count 4.8 X10^3/uL (2.0-7.7); Basophil# 0.06 X10^3/uL; Basophil% 0.8 % (0-1); Eosinophil# 0.31 X10^3/uL; Eosinophils% 3.9 % (0-5); Hematocrit 40.4 % (40-54); Hemoglobin 13.1 g/dL (13.0-16.5); Lymphocyte # 2.23 X10^3/ul (0.83-4.51); Mean Corp Hgb Conc 32.4 g/dL (32-36); Mean Corpuscular Hgb 30.2 pg (27.0-32.0); Mean Corpuscular Volume 93.1 fL (80-94); Mean Platelet Vol. 11.4 fl (6.2-12.0); Monocyte# 0.52 X10^3/uL; Monocyte% 6.5 % (0-10); NRBC Flagged by Analyzer 0 % (0-5); Neutrophil % 60.2 % (47-70); Platelet Count 242 K/mm3 (150-450); RBC Distribution Width CV 13.7 % (11.6-14.6); RBC Distribution Width SD 46.9 fl (35.1-43.9); Red Blood Count 4.34 M/mm3 (4.6-6.2)
[2022-11-06 23:00] VITALS: O2SAT 95
[2022-11-06 23:12] LABS: Anion Gap 11 (5-15); BUN 29 mg/dL (7-18); BUN/Creat Ratio 24.2 RATIO (10-20); Calcium,Total 8.7 mg/dL (8.5-10.1); Chloride 106 mmol/L (98-107); EST Glomerular Filtration Rate 65 mL/min (>60); Est Glom Filt Rate - Afr Amer 79 mL/min (>60); Estimated Creatinine Clearance 73.06 ml/min; Glucose 117 mg/dL (74-106); Potassium 3.8 mmol/L (3.5-5.1); Sodium Level 139 mmol/L (136-145); Troponin-I HS (w/2H Reflex) 30 pg/mL (3.0-78.0)
--- NOTE | 2022-11-06 23:15 | RAD_ITS ---
EXAM: XR CHEST, 1 VIEW CLINICAL INDICATION: chest pain TECHNIQUE: Frontal view of the chest. COMPARISON: 07/13/2021 FINDINGS: LUNGS AND PLEURAL SPACES: There is mild right basilar airspace disease which may represent edema or early pneumonia. No pneumothorax. No effusion. HEART: Unremarkable. Cardiac silhouette not enlarged. MEDIASTINUM: Central airways and mediastinal contour are unremarkable. BONES/JOINTS: Unremarkable. SOFT TISSUES: See above. RAD/Chest 1 View (Portable) IMPRESSION: Right lower lobe airspace disease which may represent edema or early pneumonia. Electronically Signed: Christiano Self MD at 23:39 EDT ,
[2022-11-07] VITALS (8 sets, daily range): BP systolic 133–151; BP diastolic 67–91; PULSE 59–67; RESP 15–18; TEMP 36.6–36.9; O2SAT 92–95; BMI 29.9
[2022-11-07] MEDS: Ceftriaxone 1 GM/50 ML BAG IV (00:14)
[2022-11-07] MEDS: 0.9% Normal Saline (1000mL) 1,000 ML 500 ML IV (00:15)
--- NOTE | 2022-11-07 00:19 | PCM.HP.STD ---
HPI - General General Date of Admission: 11/07/22 Date of Service: 11/07/22 Chief Complaint: Shortness of breath HPI Narrative SRAVAN GREGORIO, is a 62 M with a significant history of hypertension and CAD who presents emergency department with shortness of breath. Patient's symptoms started the same day of presentation. Associated with symptoms is elevated blood pressure which scared him to come to the emergency department. Reportedly his outpatient blood pressure was 168/104. With his symptoms patient laid down to see whether his symptoms will osvaldo. Because his symptoms did not osvaldo the patient came to the emergency department. He reports lightheadedness. For the past 2 weeks patient had head congestion with a postnasal drip. He reports a productive cough of milky sputum. He reports diaphoresis. He denies fever or chills. Reportedly at the triage patient was hypoxic and required 2 L of nasal oxygen. While in emergency department he was weaned off oxygen. [facility] Medical History Abnormal EKG Atherosclerotic heart disease of [place] coronary artery without angina pectoris Essential hypertension Family history of coronary artery disease High cholesterol History of left heart catheterization (LHC) (~08/30/21) Hyperlipemia Hypoxia Non-ST elevation (NSTEMI) myocardial infarction Pneumonia due to COVID-19 virus Psoriasis Pure hypercholesterolemia Wound of right lower extremity Home Medications cholecalciferol (vitamin D3) 25 mcg (1,000 unit) tablet (Vitamin D3) 1,000 unit PO DAILY vitamin 04/28/15 [History Last Taken 02/27/21 10:00] aspirin 81 mg tablet,delayed release (Adult Aspirin Regimen) 81 mg PO DAILY 06/01/21 [History Last Taken 08/30/21] coenzyme Q10 100 mg tablet 100 mg PO DAILY 06/03/21 [History Last Taken Unknown] ibuprofen 400 mg tablet 400 mg PO ONCE PRN Take with food 08/17/21 [History Last Taken Unknown] carvedilol 12.5 mg tablet 25 mg (2 x 12.5 mg) PO BID #1 TAB 04/21/22 [Rx Last Taken Unknown] albuterol sulfate 90 mcg/actuation aerosol inhaler 2 puff inhalation Q4H PRN shortness of breath or wheezing #8.5 grams 05/08/22 [Rx Last Taken Unknown] lisinopril 10 mg tablet 10 mg PO BID #180 tabs 05/15/22 [Rx Last Taken Unknown] atorvastatin 40 mg tablet 40 mg PO QHS #90 tabs 10/16/22 [Rx Last Taken Unknown] Allergy/AdvReac Type Severity Reaction Status Date / Time No Known Allergies Allergy Verified 10/16/22 09:12 Family History Mother Heart disease Father Heart disease Surgical History no surgical history no surgical history Social History household members: spouse Smoking Status: Never smoker alcohol intake: current substance use type: does not use caffeine: Yes Type: carbonated beverages ROS ROS Narrative Pertinent positives and pertinent negatives as noted in HPI. All other systems were reviewed and are negative Vital Signs Vital Signs Vital Signs: 11/06/22 21:46 11/06/22 21:46 11/06/22 22:28 Temperature 97.5 F L 97.5 F L Temperature Source Oral Temporal Pulse Rate 75 75 Respiratory Rate 18 18 Respiratory Effort Respiratory Pattern Blood Pressure 168/97 H 168/97 H Blood Pressure Mean 120 120 Pulse Ox 88 88 Oxygen Delivery Method Room Air Room Air Nasal Cannula Oxygen Flow Rate (L/min) 2 11/06/22 22:28 11/06/22 22:46 Temperature Temperature Source Pulse Rate 58 L Respiratory Rate 16 Respiratory Effort Normal Non-Labored Respiratory Pattern Normal Blood Pressure 153/68 H Blood Pressure Mean 96 Pulse Ox 94 Oxygen Delivery Method Nasal Cannula Oxygen Flow Rate (L/min) 2 Weight Weight: 103.9 kg Body Mass Index (BMI) 30.2 Physical Exam Narrative Physical exam: General: Well-nourished, well-developed. Head: Normocephalic, atraumatic, no tenderness Eyes: Vision is grossly intact. EOMI ENT, no trauma, moist mucous membranes, no rhinorrhea Neck: Nontender, No thyromegaly. CVS: Regular rate and rhythm. S1-S2 present. No murmur, gallop or rub. Respiratory : Right basilar Rales, chest wall nontender Abdomen: Soft, nontender, nondistended, normal bowel sounds, no masses : Deferred Back: Nontender, no CVA tenderness. Extremities: Nontender full range of motion, no trauma Skin: Normal color, no trauma, abrasions Neuro: Alert, oriented, cranial nerves II through XII grossly intact. Psychiatry: Normal mood. Normal affect. Not depressed. Not anxious. Results Lab / Micro Data 11/06/22 22:10 11/06/22 22:10 Labs: Laboratory Results - last 24 hr 11/06/22 22:10: WBC 8.0, RBC 4.34 L, Hgb 13.1, Hct 40.4, MCV 93.1, MCH 30.2, MCHC 32.4, RDW Std Deviation 46.9 H, RDW Coeff of Shonda 13.7, Plt Count 242, MPV 11.4, Immature Gran % (Auto) 0.600, Neut % (Auto) 60.2, Lymph % (Auto) 28.0, [place] % (Auto) 6.5, Eos % (Auto) 3.9, Baso % (Auto) 0.8, Absolute Neuts (auto) 4.8, Absolute Lymphs (auto) 2.23, Nucleated RBC % 0, Sodium 139, Potassium 3.8, Chloride 106, Carbon Dioxide 22.0, Anion Gap 11, BUN 29 H, Creatinine 1.20, Estim Creat Clear Calc 73.06, Est GFR (MDRD) Af Amer 79, Est GFR (MDRD) Non-Af 65, BUN/Creatinine Ratio 24.2 H, Glucose 117 H, Calcium 8.7, Troponin I High Sens 30 Micro: Microbiology 11/06/22 22:51 Nasal Secretion SARS-CoV-2 & FLU Antigen (Rapid) - Final Radiology Impression Chest X-Ray 11/06/22 23:15 IMPRESSION: Right lower lobe airspace disease which may represent edema or early pneumonia. Electronically Signed: Christiano Self MD at 23:39 EDT , Assessment & Plan Assessment/Plan (1) Pneumonia: QUALIFIERS: Laterality: right Lung location: lower lobe of lung Pneumonia type: due to unspecified organism Qualified Code(s): J18.9 - Pneumonia, unspecified organism (2) Essential hypertension: PLAN: Plan Pneumonia Gram-positive or gram-negative Impression of chest x-ray by radiology: Right lower lobe airspace disease which may represent edema or early pneumonia Chest x-ray image was independently interpreted, agrees with radiology interpretation. SARS-CoV-2 and flu antigen negative. Respiratory Gram stain and culture pending ordered. CBC showed normal white counts; trend Antibiotics: Ceftriaxone and azithromycin started at the emergency department and continued. Albuterol as needed Legionella antigen screen and Strep antigen ordered Essential hypertension Blood pressure is not within goal. When home medication reviewed; continue home blood pressure medication as necessary. Trend blood pressures. PRN Hydralazine ordered. CAD status post stents Stable DVT prophylaxis Subcutaneous Lovenox ordered. Time spent in the patient's overall evaluation,decision-making process, review of diagnostic data, adjustment of management, discussion with other providers, nursing nursing and ancillary staff involved in patient's care documentation, 64 minutes. Charges/Coding Visit Charges Inpatient E&M: 62148 Init Hosp L3
[2022-11-07 00:51] LABS: Reflex Troponin-HS? (from REC) Y
[2022-11-07] MEDS: Azithromycin 500 MG in Dextrose 5%-Water (250mL Bag) 250 ML 250 MG IV (00:53)
[2022-11-07 02:48] LABS: Absolute Lymphocyte Count 1.52 X10^3/uL (0.83-4.51); Absolute Neutrophil Count 6.3 X10^3/uL (2.0-7.7); Basophil# 0.04 X10^3/uL; Basophil% 0.5 % (0-1); Eosinophil# 0.22 X10^3/uL; Eosinophils% 2.6 % (0-5); Hematocrit 37.4 % (40-54); Hemoglobin 12.1 g/dL (13.0-16.5); Lymphocyte # 1.52 X10^3/ul (0.83-4.51); Lymphocyte % 17.8 % (19-41); Mean Corp Hgb Conc 32.4 g/dL (32-36); Mean Corpuscular Volume 92.6 fL (80-94); Monocyte# 0.46 X10^3/uL; Monocyte% 5.4 % (0-10); NRBC Flagged by Analyzer 0 % (0-5); Neutrophil # 6.26 X10^3/uL (2.7-7.7); Neutrophil % 73.2 % (47-70); Platelet Count 202 K/mm3 (150-450); RBC Distribution Width CV 13.5 % (11.6-14.6); RBC Distribution Width SD 46.3 fl (35.1-43.9); Red Blood Count 4.04 M/mm3 (4.6-6.2); White Blood Count 8.5 K/mm3 (4.4-11.0)
[2022-11-07 03:03] LABS: Anion Gap 7 (5-15); BUN 23 mg/dL (7-18); BUN/Creat Ratio 22.8 RATIO (10-20); Chloride 108 mmol/L (98-107); Creatinine, Serum 1.01 mg/dL (0.70-1.30); EST Glomerular Filtration Rate 80 mL/min (>60); Est Glom Filt Rate - Afr Amer 97 mL/min (>60); Glucose 158 mg/dL (74-106); Potassium 3.9 mmol/L (3.5-5.1); Sodium Level 139 mmol/L (136-145)
[2022-11-07 03:09] LABS: Troponin-I HS 42 pg/mL (3.0-78.0)
[2022-11-07] MEDS: guaiFENesin 1,200 MG Tablet 1200 MG PO ×2 (03:10→11:04)
--- NOTE | 2022-11-07 08:25 | PN.HOSP_ITS ---
Reason for Visit Reason for Visit: Diagnoses Essential (primary) hypertension (11/07/22) Pneumonia, unspecified organism (11/07/22) Subjective Subjective Breathing better. Objective Data Objective Data Vital Signs: Vital Signs Temp Pulse Resp BP Pulse Ox O2 Del Method O2 Flow Rate 36.6 C 67 18 151/84 H 94 Room Air 2 11/07/22 05:40 11/07/22 05:40 11/07/22 05:40 11/07/22 05:40 11/07/22 05:40 11/07/22 05:40 11/06/22 23:00 Oxygen Flow Rate (L/min) 2 Oxygen Delivery Method Room Air Weight: 102.9 kg Body Mass Index (BMI) 29.9 Intake & Output: Intake and Output for Last 24 Hours 11/05/22 11/06/22 11/07/22 23:59 23:59 23:59 Intake Total 1305 / 1305 Balance 1305 / 1305 Lab / Micro Data 11/07/22 02:38 11/07/22 02:38 Labs: Laboratory Results - last 24 hr 11/06/22 22:10: WBC 8.0, RBC 4.34 L, Hgb 13.1, Hct 40.4, MCV 93.1, MCH 30.2, MCHC 32.4, RDW Std Deviation 46.9 H, RDW Coeff of Shonda 13.7, Plt Count 242, MPV 11.4, Immature Gran % (Auto) 0.600, Neut % (Auto) 60.2, Lymph % (Auto) 28.0, [place] % (Auto) 6.5, Eos % (Auto) 3.9, Baso % (Auto) 0.8, Absolute Neuts (auto) 4.8, Absolute Lymphs (auto) 2.23, Nucleated RBC % 0, Sodium 139, Potassium 3.8, Chloride 106, Carbon Dioxide 22.0, Anion Gap 11, BUN 29 H, Creatinine 1.20, Estim Creat Clear Calc 73.06, Est GFR (MDRD) Af Amer 79, Est GFR (MDRD) Non-Af 65, BUN/Creatinine Ratio 24.2 H, Glucose 117 H, Calcium 8.7, Troponin I High Sens 30 11/07/22 02:38: WBC 8.5, RBC 4.04 L, Hgb 12.1 L, Hct 37.4 L, MCV 92.6, MCH 30.0, MCHC 32.4, RDW Std Deviation 46.3 H, RDW Coeff of Shonda 13.5, Plt Count 202, MPV 11.0, Immature Gran % (Auto) 0.500, Neut % (Auto) 73.2 H, Lymph % (Auto) 17.8 L, [place] % (Auto) 5.4, Eos % (Auto) 2.6, Baso % (Auto) 0.5, Absolute Neuts (auto) 6.3, Absolute Lymphs (auto) 1.52, Nucleated RBC % 0, Sodium 139, Potassium 3.9, Chloride 108 H, Carbon Dioxide 24.0, Anion Gap 7, BUN 23 H, Creatinine 1.01, Estim Creat Clear Calc 86.80, Est GFR (MDRD) Af Amer 97, Est GFR (MDRD) Non-Af 80, BUN/Creatinine Ratio 22.8 H, Glucose 158 H, Calcium 8.0 L, Troponin I High Sens 42 Micro: Microbiology 11/06/22 22:51 Nasal Secretion SARS-CoV-2 & FLU Antigen (Rapid) - Final Radiography Diagnostic Testing: Radiology Impression Chest X-Ray 11/06/22 23:15 IMPRESSION: Right lower lobe airspace disease which may represent edema or early pneumonia. Electronically Signed: Christiano Self MD at 23:39 EDT , Physical Exam Const alert and no apparent distress Resp normal respiratory effort, no retractions, no use of accessory muscles and clear to auscultation bilaterally Cardio regular rate, regular rhythm, S1 normal heart sound and S2 normal heart sound GI normal to inspection, nondistended, normoactive bowel sounds Assessment & Plan Assessment/Plan (1) Pneumonia: QUALIFIERS: Laterality: right Lung location: lower lobe of lung Pneumonia type: due to unspecified organism Qualified Code(s): J18.9 - Pneumonia, unspecified organism PLAN: Suspected pneumococcal SARS-CoV-2 and flu antigen negative. SCx pending Antibiotics: Ceftriaxone and azithromycin started at the emergency department an d continued. Albuterol as needed Legionella antigen screen and Strep antigen negative No oxygen needed at home. Improving. DC with levofloxacin. PLAN: Plan Chronic conditions: * Essential hypertension: Blood pressure is not within goal. Continue ca rvedilol and lisinopril * CAD status post stents Stable
--- NOTE | 2022-11-07 10:24 | PCM.DC.SUM ---
Providers Date of Admission: 11/07/22 Primary Care Physician: Lyric Saravia DO Reason For Visit: PNEUMONIA Diagnosis Discharge Diagnosis (1) Pneumonia: Status: Acute Code(s): J18.9 - Pneumonia, unspecified organism Qualifiers: Pneumonia type: due to unspecified organism Laterality: right Lung location: lower lobe of lung Qualified Code(s): J18.9 - Pneumonia, unspecified organism Plan: Suspected pneumococcal SARS-CoV-2 and flu antigen negative. SCx pending Antibiotics: Ceftriaxone and azithromycin started at the emergency department and continued. Albuterol as needed Legionella antigen screen and Strep antigen negative No oxygen needed at home. Improving. DC with levofloxacin. Plan Chronic conditions: Essential hypertension: Blood pressure is not within goal. Continue carvedilol and lisinopril CAD status post stents Stable Medications at Discharge Home Medications cholecalciferol (vitamin D3) 25 mcg (1,000 unit) tablet (Vitamin D3) 1,000 unit PO DAILY vitamin 04/28/15 aspirin 81 mg tablet,delayed release (Adult Aspirin Regimen) 81 mg PO DAILY . 06/01/21 coenzyme Q10 100 mg tablet 100 mg PO DAILY . 06/03/21 ibuprofen 400 mg tablet 400 mg PO ONCE PRN Take with food 08/17/21 carvedilol 12.5 mg tablet 25 mg (2 x 12.5 mg) PO BID . #1 TAB 04/21/22 lisinopril 10 mg tablet 10 mg PO BID htn #180 tabs 05/15/22 atorvastatin 40 mg tablet 40 mg PO QHS cholesterol #90 tabs 10/16/22 levofloxacin 750 mg tablet 750 mg PO Q24H #6 tabs 11/07/22 Hospital Course Operations None Procedures None Summary of Care Provided Minutes Spent on Discharge: 32 Hospital Course: 2 weeks ago, patient said that he was sick with some upper respiratory complaints triggers sinus congestion. Symptoms to get better, however, over the past 3 days patient has gotten worse. Yesterday, patient felt short of breath and then became anxious and noted his blood pressure was high in the 160s. Presented emergency room where he was noted to have a right lower lobe infiltrate. Patient received ceftriaxone and azithromycin in the emergency room. Patient had home oxygen evaluation which was normal and therefore patient will not require any oxygen. Patient will receive levofloxacin to complete a weeklong course of treatment for pneumonia. Patient advised to return if he does feel worse. Suspect patient may have had a viral infection that may have preceded this bacterial pneumonia though his COVID-19 here was negative. Weight / BMI Weight Weight: 102.9 kg Body Mass Index (BMI) 29.9 ABG / Lab / Microbiology Data 11/07/22 02:38 11/07/22 02:38 Laboratory: Laboratory Results - last 24 hr 11/06/22 22:10: WBC 8.0, RBC 4.34 L, Hgb 13.1, Hct 40.4, MCV 93.1, MCH 30.2, MCHC 32.4, RDW Std Deviation 46.9 H, RDW Coeff of Shonda 13.7, Plt Count 242, MPV 11.4, Immature Gran % (Auto) 0.600, Neut % (Auto) 60.2, Lymph % (Auto) 28.0, [place] % (Auto) 6.5, Eos % (Auto) 3.9, Baso % (Auto) 0.8, Absolute Neuts (auto) 4.8, Absolute Lymphs (auto) 2.23, Nucleated RBC % 0, Sodium 139, Potassium 3.8, Chloride 106, Carbon Dioxide 22.0, Anion Gap 11, BUN 29 H, Creatinine 1.20, Estim Creat Clear Calc 73.06, Est GFR (MDRD) Af Amer 79, Est GFR (MDRD) Non-Af 65, BUN/Creatinine Ratio 24.2 H, Glucose 117 H, Calcium 8.7, Troponin I High Sens 30 11/07/22 02:38: WBC 8.5, RBC 4.04 L, Hgb 12.1 L, Hct 37.4 L, MCV 92.6, MCH 30.0, MCHC 32.4, RDW Std Deviation 46.3 H, RDW Coeff of Shonda 13.5, Plt Count 202, MPV 11.0, Immature Gran % (Auto) 0.500, Neut % (Auto) 73.2 H, Lymph % (Auto) 17.8 L, [place] % (Auto) 5.4, Eos % (Auto) 2.6, Baso % (Auto) 0.5, Absolute Neuts (auto) 6.3, Absolute Lymphs (auto) 1.52, Nucleated RBC % 0, Sodium 139, Potassium 3.9, Chloride 108 H, Carbon Dioxide 24.0, Anion Gap 7, BUN 23 H, Creatinine 1.01, Estim Creat Clear Calc 86.80, Est GFR (MDRD) Af Amer 97, Est GFR (MDRD) Non-Af 80, BUN/Creatinine Ratio 22.8 H, Glucose 158 H, Calcium 8.0 L, Troponin I High Sens 42 Microbiology: Microbiology 11/07/22 08:40 Urine, Clean Catch Legionella Antigen - Final 11/07/22 08:40 Urine, Clean Catch Streptococcus pneumoniae Antigen (M - Final 11/06/22 22:51 Nasal Secretion SARS-CoV-2 & FLU Antigen (Rapid) - Final Radiography Diagnostic Testing: Radiology Impression Chest X-Ray 11/06/22 23:15 IMPRESSION: Right lower lobe airspace disease which may represent edema or early pneumonia. Electronically Signed: Christiano Self MD at 23:39 EDT Reading Location ID and State: [address] [place] [address] Tel , Service support , D/C Instructions Discharge Diet: No restrictions Call your doctor if you observe: Fever of 101 or Higher and Shortness of breath Meaningful Use Info Meaningful Use Diagnoses (Choose all that apply): None applicable Discharge Plan Admission Admit Date/Time: 11/07/22 00:11 Primary Reason for Your Visit: Pneumonia Attending Provider: Amari Rivera Primary Care Provider: Lyric Saravia Consulting Providers: Paresh Noguera Discharge Orders/Prescriptions Prescriptions: New levofloxacin 750 mg tablet 750 mg PO Q24H Qty: 6 0RF Continued coenzyme Q10 100 mg tablet 100 mg PO DAILY ibuprofen 400 mg tablet 400 mg PO ONCE PRN (Reason: Take with food) carvedilol 12.5 mg tablet 25 mg PO BID Qty: 1 3RF Rx Instructions: 12.5 mg po bid must administer with a meal/food cholecalciferol (vitamin D3) [Vitamin D3] 1,000 UNIT tablet 1,000 unit PO DAILY aspirin [Adult Aspirin Regimen] 81 mg tablet,delayed release (DR/EC) 81 mg PO DAILY lisinopril 10 mg tablet 10 mg PO BID Qty: 180 3RF atorvastatin 40 mg tablet 40 mg PO QHS Qty: 90 3RF Referrals / Follow Up: Lyric Saravia DO [Primary Care Provider] - Within 2 Weeks Disposition Disposition (needs filled in before D/C Order can be placed): Home, Self Care Charges/Coding Visit Charges Inpatient E&M: 85703 Disch Hosp >30min
--- NOTE | 2022-11-07 10:45 | CASEMGMT ---
RN CASEY Face to Face with patient for initial transition planning/care coordination assessment. RN CM introduced self and role at [facility]. Patient lying in bed, alert and oriented. Patient willing to participate in assessment and is able to answer all questions appropriately. Care providers, pharmacy, and demographics verified. Patient wishes to discharge home, denies need for home health at this time. Patient states he has no further needs or concerns at this time. CM to follow for discharge planning needs that may arise. PCP: Manjit Specialists: Mary machine installer Preferred Pharmacy: [facility] Insurance: MMO Prescription Benefit: yes Living Will/HPOA: none LNOK: Living Arrangements: Patient lives with in a 2 story home. Patient is independent and able to ambulate stairs. Transportation: self, DME/HHC: Patient denies DME in the home. No previous HHC or SNF Disposition Plan: Patient to discharge home with family support and follow-up plans in place. Tejal JOYA, RN, CM
[2022-11-07] MEDS: Carvedilol 25 MG Tablet PO (11:04)
[2022-11-07] MEDS: Lisinopril 10 MG Tablet PO (11:04)
== END 2022-11-07 12:43 | disposition home or self-care (01) ==
LOC: ED 22:47 → PCU 11-07 06:58
PROVIDERS: Admitting Provider Hospitalist; Emergency Provider Emergency Medicine; PCP Family Medicine
DX: J18.9 Pneumonia, unspecified organism (principal); I10 Essential (primary) hypertension; I25.10 Atherosclerotic heart disease of native coronary artery without angina pectoris; R09.02 Hypoxemia; Z79.82 Long term (current) use of aspirin; Z20.822 Contact with and (suspected) exposure to COVID-19; E78.00 Pure hypercholesterolemia, unspecified; Z79.899 Other long term (current) drug therapy; I25.2 Old myocardial infarction
CPT/HCPCS: 36415; 71045; 80048; 84484; 85025; 87070; 87205; 87428; 87449; 93005; 94668; 96365; 96367; 99221; 99284; J7040; A4216; G0378

== ENCOUNTER → 2023-04-23 | Outpatient (CLI) | payer OTHER, SELFPAY ==
[2021-09-19 07:07] VITALS: BMI 28.8
[2023-04-23 10:14] LABS: Erythrocyte Sedimentation Rate 3 mm/hr (0-20)
[2023-04-23 10:44] LABS: AST(SGOT) 19 U/L (15-37); Alanine Aminotransfer ALT/SGPT 23 U/L (16-61); Albumin, Serum 3.6 g/dL (3.2-5.0); Alkaline Phosphatase 71 U/L (45-117); Bilirubin, Direct 0.15 mg/dL (0.00-0.30); CRP 6.55 mg/L (0.0-3.0); Cholesterol 114 mg/dL (200); High Density Lipoprotein 30 mg/dL; Protein, Total 6.6 g/dL (6.4-8.2); Triglycerides 58 mg/dL; Very Low Density Lipoprotein 12 mg/dL (5-40)
== END | disposition home or self-care (01) ==
LOC: LAB 09:39
PROVIDERS: PCP Family Medicine; Referring Provider Physician Assistant Medical; Visit Provider Physician Assistant Medical
DX: E78.00 Pure hypercholesterolemia, unspecified (principal); R07.9 Chest pain, unspecified
CPT/HCPCS: 36415; 80061; 80076; 85652; 86140

== ENCOUNTER → 2023-06-13 | Outpatient (CLI) | payer OTHER, SELFPAY ==
[2021-09-19 07:07] VITALS: BMI 28.8
--- NOTE | 2023-06-13 09:15 | RAD_ITS ---
INDICATION: SCIATICA TO LEFT SIDE EXAMINATION/TECHNIQUE: X-RAY - XR Spine Lumbar Min 4 Views COMPARISON: No relevant prior comparison study available FINDINGS: VERTEBRAE: Preserved vertebral body height. No fracture. No spondylolisthesis. Preservation of the normal lumbar lordosis. There is mild multilevel endplate spondylosis and facet hypertrophy. DISCS: There is mild multilevel degenerative disc disease. INCLUDED ABDOMEN: Included bowel gas pattern is non-obstructive. RAD/L/S Spine Min 4 Views IMPRESSION: Multilevel degenerative changes. Electronically Signed: Inge Vernon MD at 9:04 EDT ,
--- NOTE | 2023-06-13 09:15 | RAD_ITS ---
INDICATION: chronic pain EXAMINATION/TECHNIQUE: X-RAY - RIGHT XR Foot Min 3 Views 3 VIEWS COMPARISON: No relevant prior comparison study available FINDINGS: SOFT TISSUES: No soft tissue swelling or gas. No radiopaque foreign body. BONES/JOINTS: No acute fracture or subluxation.. Normal alignment. Preservation of the joint space.. No sclerotic or destructive changes observed. RAD/Foot min 3 Views IMPRESSION: Within normal limits examination. Electronically Signed: Inge Vernon MD at 9:53 EDT ,
[2023-06-13 12:23] LABS: Absolute Lymphocyte Count 1.64 X10^3/uL (0.83-4.51); Absolute Neutrophil Count 4.2 X10^3/uL (2.0-7.7); Basophil# 0.07 X10^3/uL; Basophil% 1.1 % (0-1); Eosinophil# 0.24 X10^3/uL; Eosinophils% 3.6 % (0-5); Hemoglobin 13.3 g/dL (13.0-16.5); Lymphocyte # 1.64 X10^3/ul (0.83-4.51); Lymphocyte % 24.8 % (19-41); Mean Corp Hgb Conc 32.4 g/dL (32-36); Mean Corpuscular Hgb 29.9 pg (27.0-32.0); Mean Corpuscular Volume 92.1 fL (80-94); Mean Platelet Vol. 12.4 fl (6.2-12.0); Monocyte# 0.47 X10^3/uL; Monocyte% 7.1 % (0-10); NRBC Flagged by Analyzer 0 % (0-5); Neutrophil # 4.17 X10^3/uL (2.7-7.7); Neutrophil % 63.1 % (47-70); Platelet Count 167 K/mm3 (150-450); RBC Distribution Width CV 14.4 % (11.6-14.6); RBC Distribution Width SD 48.6 fl (35.1-43.9); Red Blood Count 4.45 M/mm3 (4.6-6.2); White Blood Count 6.6 K/mm3 (4.4-11.0)
[2023-06-13 12:57] LABS: Anion Gap 5 (5-15); BUN 21 mg/dL (7-18); BUN/Creat Ratio 20.2 RATIO (10-20); Calcium,Total 8.9 mg/dL (8.5-10.1); Chloride 107 mmol/L (98-107); Creatinine, Serum 1.04 mg/dL (0.70-1.30); EST Glomerular Filtration Rate 77 mL/min (>60); Est Glom Filt Rate - Afr Amer 93 mL/min (>60); Glucose 104 mg/dL (74-106); Sodium Level 140 mmol/L (136-145)
[2023-06-13 12:59] LABS: Vitamin D,25 Hydroxy 50.9 ng/mL
[2023-06-14 17:27] LABS: PSA,Total - Annual Screen 1.86 ng/mL (0.00-4.00)
== END | disposition home or self-care (01) ==
LOC: MTRAD 09:12
PROVIDERS: PCP Family Medicine; Referring Provider Family Medicine; Visit Provider Family Medicine
DX: M79.671 Pain in right foot (principal); M54.32 Sciatica, left side; G89.29 Other chronic pain; Z13.1 Encounter for screening for diabetes mellitus; Z12.5 Encounter for screening for malignant neoplasm of prostate; Z13.21 Encounter for screening for nutritional disorder
CPT/HCPCS: 36415; 72110; 73630; 80048; 82306; 84153; 85025; G0103

== ENCOUNTER → 2024-01-03 | Outpatient (CLI) | payer OTHER, SELFPAY ==
[2021-09-19 07:07] VITALS: BMI 28.8
[2024-01-03 10:06] LABS: Absolute Lymphocyte Count 1.49 X10^3/uL (0.83-4.51); Absolute Neutrophil Count 4.3 X10^3/uL (2.0-7.7); Basophil# 0.08 X10^3/uL; Basophil% 1.2 % (0-1); Eosinophil# 0.27 X10^3/uL; Eosinophils% 4.1 % (0-5); Hematocrit 41.3 % (40-54); Hemoglobin 13.6 g/dL (13.0-16.5); Lymphocyte # 1.49 X10^3/ul (0.83-4.51); Lymphocyte % 22.5 % (19-41); Mean Corp Hgb Conc 32.9 g/dL (32-36); Mean Corpuscular Hgb 30.3 pg (27.0-32.0); Mean Platelet Vol. 11.7 fl (6.2-12.0); Monocyte# 0.49 X10^3/uL; Monocyte% 7.4 % (0-10); NRBC Flagged by Analyzer 0 % (0-5); Neutrophil # 4.27 X10^3/uL (2.7-7.7); Neutrophil % 64.5 % (47-70); Platelet Count 183 K/mm3 (150-450); RBC Distribution Width CV 13.5 % (11.6-14.6); RBC Distribution Width SD 45.9 fl (35.1-43.9); Red Blood Count 4.49 M/mm3 (4.6-6.2); White Blood Count 6.6 K/mm3 (4.4-11.0)
[2024-01-03 10:29] LABS: ALB/GLOB Ratio 1.2 RATIO (0.9-2.4); AST(SGOT) 15 U/L (15-37); Alanine Aminotransfer ALT/SGPT 27 U/L (16-61); Albumin, Serum 3.6 g/dL (3.2-5.0); Alkaline Phosphatase 65 U/L (45-117); Anion Gap 4 (5-15); BUN 21 mg/dL (7-18); BUN/Creat Ratio 20.4 RATIO (10-20); Calcium,Total 8.7 mg/dL (8.5-10.1); Chloride 106 mmol/L (98-107); Cholesterol 143 mg/dL (200); Creatinine, Serum 1.03 mg/dL (0.70-1.30); EST Glomerular Filtration Rate 78 mL/min (>60); Est Glom Filt Rate - Afr Amer 94 mL/min (>60); Globulin 3.1 g/dL (2.2-4.2); Glucose 111 mg/dL (74-106); High Density Lipoprotein 34 mg/dL; Potassium 4.7 mmol/L (3.5-5.1); Protein, Total 6.7 g/dL (6.4-8.2); Sodium Level 138 mmol/L (136-145); Triglycerides 47 mg/dL; Very Low Density Lipoprotein 9 mg/dL (5-40)
== END | disposition home or self-care (01) ==
LOC: MFPLAB 08:24
PROVIDERS: PCP Family Medicine; Visit Provider Family Medicine
DX: I10 Essential (primary) hypertension (principal); E78.00 Pure hypercholesterolemia, unspecified; Z12.5 Encounter for screening for malignant neoplasm of prostate
CPT/HCPCS: 36415; 80053; 80061; 85025

== ENCOUNTER → 2024-06-13 | Outpatient (CLI) | payer OTHER, SELFPAY ==
[2021-09-19 07:07] VITALS: BMI 28.8
[2024-06-13 10:29] LABS: Hemoglobin A1c 5.8 % (<=5.6)
[2024-06-13 10:31] LABS: PSA,Total - Annual Screen 0.64 ng/mL (0.02-4.00)
== END | disposition home or self-care (01) ==
LOC: MFPLAB 09:21
PROVIDERS: PCP Family Medicine; Referring Provider Family Medicine; Visit Provider Family Medicine
DX: R73.09 Other abnormal glucose (principal); Z12.5 Encounter for screening for malignant neoplasm of prostate
CPT/HCPCS: 36415; 83036; 84153; G0103

== ENCOUNTER → 2025-02-02 | Outpatient (CLI) | payer BC, SELFPAY ==
[2021-09-19 07:07] VITALS: BMI 28.8
[2025-02-02 10:35] LABS: Hematocrit 41.7 % (40-54); Hemoglobin 13.7 g/dL (13.0-16.5); Immature Granulocytes Count 0.030 X10^3/uL (0.0-0.0); Mean Corp Hgb Conc 32.9 g/dL (32-36); Mean Corpuscular Volume 93.7 fL (80-94); Mean Platelet Vol. 12.0 fl (6.2-12.0); NRBC Flagged by Analyzer 0 % (0-5); Platelet Count 184 K/mm3 (150-450); RBC Distribution Width CV 14.0 % (11.6-14.6); RBC Distribution Width SD 48.0 fl (35.1-43.9); Red Blood Count 4.45 M/mm3 (4.6-6.2); White Blood Count 7.9 K/mm3 (4.4-11.0)
[2025-02-02 11:11] LABS: AST(SGOT) 19 U/L (<=37); Alanine Aminotransfer ALT/SGPT 21 U/L (<=46); Albumin, Serum 4.1 g/dL (3.4-4.8); Alkaline Phosphatase 67 U/L (40-129); Anion Gap 9 (5-15); BUN 15 mg/dL (4-19); BUN/Creat Ratio 12.2 RATIO (10-20); Calcium,Total 9.0 mg/dL (7.6-11.0); Carbon Dioxide 27.3 mmol/L (21.0-32.0); Chloride 105 mmol/L (98-108); Cholesterol 139 mg/dL (<=200); Globulin 2.4 g/dL (2.2-4.2); Glucose 104 mg/dL (70-99); Low Density Lipoprotein Calc. 94 mg/dL; PSA,Total - Annual Screen 0.54 ng/mL (0.02-4.00); Potassium 4.5 mmol/L (3.3-5.1); Triglycerides 83 mg/dL; Very Low Density Lipoprotein 17 mg/dL (5-40); cholesterol:hdl ratio screen 4.84
== END | disposition home or self-care (01) ==
LOC: MTLAB 08:07
PROVIDERS: PCP Family Medicine; Referring Provider Student in an Organized Health Care Education/Training Program; Visit Provider Student in an Organized Health Care Education/Training Program
DX: I10 Essential (primary) hypertension (principal); E78.00 Pure hypercholesterolemia, unspecified; R73.9 Hyperglycemia, unspecified; Z12.5 Encounter for screening for malignant neoplasm of prostate
CPT/HCPCS: 36415; 80053; 80061; 83036; 84153; 85025; G0103